=== PATIENT | male | born 1940 | race Caucasian/White ===

== ENCOUNTER → 2017-10-03 10:43 | Outpatient (CLI) | payer MEDICARE, OTHER, SELFPAY ==
--- NOTE | 2017-10-03 10:45 | CT_ITS ---
STUDY: CT BRAIN WITHOUT CONTRAST REASON FOR EXAM: Male, 77 years old. Dementia. RADIATION DOSAGE (If Supplied By Facility): CTDIvol = ( 44.99 ) mGy, DLP = ( 779.24 ) mGycm TECHNIQUE: Transaxial CT imaging of the brain was performed without administration of intravenous contrast material. Individualized dose optimization techniques were used for this CT. COMPARISON: Comparison is made with prior study dated July 08, 2017. FINDINGS: Normal soft tissue structures. Normal calvarium. There is mild cerebral atrophy with widening of the extra-axial spaces and ventricular dilatation. There are areas of decreased attenuation within the white matter tracts of the supratentorial brain, consistent with microvascular disease changes. Stable old lacunar infarct in the right thalamus. Normal brainstem. There is mild cerebellar atrophy. There is no intracranial hemorrhage. There are no findings of an acute ischemic infarction. Atherosclerotic calcification of the vertebral arteries and cavernous portions of the internal carotid arteries bilaterally. Deformity of the left maxillary sinus with opacification. CT/Brain/Head without Contrast IMPRESSION: Chronic involutional changes of the brain. Electronically Signed: Valentino Pitts MD at 13:57 EST Tel [phone], Service support ,
== END ==
PROVIDERS: Family Provider Family Medicine; PCP Family Medicine; Visit Provider Nurse Practitioner Acute Care
DX: F03.90 Unspecified dementia, unspecified severity, without behavioral disturbance, psychotic disturbance, mood disturbance, and anxiety (principal)
CPT/HCPCS: 70450

== ENCOUNTER → 2018-09-09 16:11 | Outpatient (CLI) | payer MEDICARE, OTHER, SELFPAY ==
[2017-08-25 09:27] VITALS: BMI 28.2
[2018-09-09 18:06] LABS: Absolute Lymphocyte Count 1.22 X10^3/ul (0.83-4.51); Absolute Neutrophil Count 3.4 X10^3/uL (2.0-7.7); Basophil# 0.04 X10^3/uL; Basophil% 0.7 % (0-1); Eosinophil# 0.13 X10^3/uL; Eosinophils% 2.4 % (0-5); Hematocrit 44.3 % (40-54); Hemoglobin 13.6 g/dl (13.0-16.5); Lymphocyte # 1.22 X10^3/ul (4.0); Lymphocyte % 22.7 % (19-41); Mean Corp Hgb Conc 30.7 g/gl (32-36); Mean Corpuscular Hgb 25.6 pg (27.0-32.0); Mean Corpuscular Volume 83.3 fL (80-94); Mean Platelet Vol. 9.1 fl (6.2-12.0); Monocyte# 0.59 X10^3/uL; Neutrophil % 63.2 % (47-70); Platelet Count 219 K/mm3 (150-450); RBC Distribution Width CV 17.4 % (11.6-14.6); RBC Distribution Width SD 52.5 fl (35.1-43.9); Red Blood Count 5.32 M/mm3 (4.6-6.2); White Blood Count 5.4 K/mm3 (4.4-11.0)
[2018-09-09 18:08] LABS: POSITIVE COUNT NO; POSITIVE DIFFERENTIAL NO; POSITIVE MORPHOLOGY NO
[2018-09-09 18:24] LABS: AST(SGOT) 15 U/L (15-37); Alanine Aminotransfer ALT/SGPT 19 U/L (16-61); Albumin, Serum 3.2 g/dL (3.2-5.0); Alkaline Phosphatase 87 U/L (45-117); Anion Gap 10 (5-15); BUN 21 mg/dL (7-18); BUN/Creat Ratio 25.8 RATIO (10-20); Calcium,Total 8.5 mg/dL (8.5-10.1); Chloride 109 mmol/L (98-107); Creatinine, Serum 0.81 mg/dL (0.70-1.30); EST Glomerular Filtration Rate 98 mL/min (>60); Est Glom Filt Rate - Afr Amer 118 mL/min (>60); Globulin 3.3 g/dL (2.2-4.2); Glucose 106 mg/dL (74-106); Potassium 3.7 mmol/L (3.5-5.1); Protein, Total 6.5 g/dL (6.4-8.2); Sodium Level 145 mmol/L (136-145); Thyroid Stim Hormone (TSH) 1.31 uIU/mL (0.358-3.74)
--- OUTSIDE RECORDS SUMMARY | 2018-11-11 18:42 | XMS RPT_ITS ---
:1940 Author Organization OHIP Care Team Providers Name Role Phone Shashank Grajeda Attending Unavailable Shashank Grajeda Primary Care Unavailable Edward Siddiqui D.O. Attending Unavailable Shashank Grajeda Referring Unavailable Tiffanie Rodarte Attending Unavailable Shashank Grajeda Primary Care Unavailable Kandace Olivarez Attending Unavailable Freddy Zamarripa Attending Unavailable PROBLEMS PROBLEMS No Problem Records FoundPROCEDURES PROCEDURES No Procedure Records FoundRESULTS RESULTS CBC W/DIFF, AUTOMATED Collected: 09/09/2018 Status: F Source: [place] 4:13 PM [facility] REPOSITORY TYPE CODE TESTS RESULT OUT OF RANGE REFERENCE UNITS LAB L100.1000 4.4-11.0 K/mm3 Normal WBC 5.4 LAB L100.1200 4.6-6.2 M/mm3 Normal RBC 5.32 LAB L100.1300 13.0-16.5 g/dl Normal HGB 13.6 LAB L100.1400 40-54 % Normal HCT 44.3 LAB L100.1500 80-94 fL Normal MCV 83.3 LAB L100.1600 27.0-32.0 pg Low MCH 25.6 LAB L100.1700 32-36 g/gl Low MCHC 30.7 LAB L100.1810 11.6-14.6 % High RDW CV 17.4 LAB L100.1820 35.1-43.9 fl High RDW SD 52.5 LAB L100.1900 150-450 K/mm3 Normal PLT 219 LAB L100.2000 6.2-12.0 fl Normal MPV 9.1 LAB L100.2100 47-70 % Normal NEUT% 63.2 LAB L100.2200 19-41 % Normal LY% 22.7 LAB L100.2300 0-10 % High MONO% 11.0 LAB L100.2400 0-5 % Normal EO% 2.4 LAB L100.2500 0-1 % Normal BASO% 0.7 LAB L100.2550 0.0-0.9 % Normal IM GRAN % 0.000 Result Comment: IG% - Immature Granulocytes (promyelocytes, myelocytes and metamyelocytes) > 1% indicates that a LEFT SHIFT is Present. LAB L100.2620 2.0-7.7 X10 3/uL Normal Absolute Neut 3.4 LAB L100.2720 0.83-4.51 X10 3/ul Normal Absolute Lymph 1.22 Performed By: #### L100.0100 #### [facility] [address] [place], [place], [address] COMPREHENSIVE METABOLIC Collected: 09/09/2018 Status: F Source: [facility] 4:13 PM [facility] REPOSITORY TYPE CODE TESTS RESULT OUT OF RANGE REFERENCE UNITS LAB L501.0100 74-106 mg/dL Normal GLU 106 Result Comment: Fasting Glucose result from 100 to 125 mg/dL suggests IMPAIRED HOMEOSTASIS per A.D.A. criteria. Please note revised GLUCOSE reference range effective 2017. LAB L501.1000 7-18 mg/dL High BUN 21 LAB L501.1100 0.70-1.30 mg/dL Normal CREAT,SERUM 0.81 Result Comment: The validity of the calculated GFR AND GFRAA in patients over 70 years has not been determined. Clinical correlation is essential. LAB L501.1110 >60 mL/min Normal EST GFR 98 Result Comment: Non- GFR Calc LAB L501.1115 >60 mL/min Normal EST GFR - AA 118 Result Comment: GFR Calc LAB L501.1300 10-20 RATIO High BUN/CRE 25.8 LAB L501.1500 6.4-8.2 g/dL T Normal PROT 6.5 LAB L501.1800 3.2-5.0 g/dL Normal ALB 3.2 LAB L501.1950 2.2-4.2 g/dL Normal GLOB 3.3 LAB L501.2000 0.9-2.4 RATIO Normal A/G 1.0 LAB L501.2200 8.5-10.1 mg/dL CA Normal 8.5 LAB L501.4100 15-37 U/L Normal AST 15 LAB L501.4305 45-117 U/L Normal ALK P 87 LAB L501.4405 16-61 U/L Normal ALT 19 LAB L501.4600 0.20-1.00 mg/dL T Normal BILI 0.70 LAB L501.5300 136-145 mmol/L NA Normal 145 LAB L501.5600 3.5-5.1 mmol/L K Normal 3.7 LAB L501.5900 98-107 mmol/L High CL 109 LAB L501.6100 21.0-32.0 mmol/L Normal CO2 26.0 LAB L501.6200 5-15 Normal GAP 10 Performed By: #### L500.4050, L501.9520 #### [facility] [address] [place], [address] THYROID STIM HORMONE Collected: 09/09/2018 Status: F Source: [place] (TSH) 4:13 PM [facility] REPOSITORY TYPE CODE TESTS RESULT OUT OF RANGE REFERENCE UNITS LAB L501.9520 0.358-3.74 uIU/mL Normal TSH 1.31 Performed By: #### L500.4050, L501.9520 #### [facility] [address] [place], [address] BRAIN/HEAD WITHOUT Observed: 10/03/2017 Status: F Source: [place] CONTRAST 10:45 AM [facility] REPOSITORY [facility] Imaging Services [address] [place] [address] [place] [address] Brain/Head without Contrast MR#: [id number] Acct: [id number] Name: LORI TEJEDA Rep #: [id number] : 1940 M 77 From: Valentino Pitts MD PCP: Shashank Grajeda MD Status: REG CLI Study: Brain/Head without Contrast Date of Exam: 10/03/17 Exam# [id number] Ordering Dr: Tiffanie Rodarte STUDY: CT BRAIN WITHOUT CONTRAST REASON FOR EXAM: Male, 77 years old. Dementia. RADIATION DOSAGE (If Supplied By Facility): CTDIvol = ( 44.99 ) mGy, DLP = ( 779.24 ) mGycm TECHNIQUE: Transaxial CT imaging of the brain was performed without administration of intravenous contrast material. Individualized dose optimization techniques were used for this CT. COMPARISON: Comparison is made with prior study dated July 08, 2017. FINDINGS: Normal soft tissue structures. Normal calvarium. There is mild cerebral atrophy with widening of the extra- axial spaces and ventricular dilatation. There are areas of decreased attenuation within the white matter tracts of the supratentorial brain, consistent with microvascular disease changes. Stable old lacunar infarct in the right thalamus. Normal brainstem. There is mild cerebellar atrophy. There is no intracranial hemorrhage. There are no findings of an acute ischemic infarction. Atherosclerotic calcification of the vertebral arteries and cavernous portions of the internal carotid arteries bilaterally. Deformity of the left maxillary sinus with opacification. CT/Brain/Head without Contrast IMPRESSION: Chronic involutional changes of the brain. Electronically Signed: Valentino Pitts MD at 13:57 EST Tel [phone], Service support , CC: RITA Rodarte; Shashank Grajeda MD Black Off Worker: Signed PULMONARY VISIT REPORT Observed: 09/29/2017 Status: F Source: [place] 8:11 AM [facility] REPOSITORY [facility] [address] [place] [address] OFFICE VISIT Date of Service: 09/26/17 MR#: [id number] Acct: [id number] Name: LORI TEJEDA Rep #: [id number] : 1940 Provider: Edward Siddiqui D.O. Age/Sex: 77/M [place] [facility] Status: Signed Assessment AND Plan 1. History of abnormal breathing pattern Z87.898 Plan The patient's cyclical abnormal breathing pattern is most likely neurologic/psychiatric in etiology. He is currently maintaining appropriate oxygen saturations on room air and does not desaturate with the onset of these episodes. He would be unable to perform PFT's and I do not see a clinical indication to obtain any form of dedicated chest imaging. The patient is currently scheduled to follow up with Dr. Becker of Neurology. I have asked that the patient's discuss this issue with him at their follow up visit with Neurology. 2. Shortness of breath R06.02 Plan As above, likely neurologic in etiology. 3. Other cardiomyopathy I42.8 EF 40-45% Plan Continue medical management and follow up per Cardiology. Plan Detail Follow Up 1 Month (CSM) HPI HPI Comments Details: The patient is a 77-year-old male who presents to the clinic today and referral for evaluation of shortness of breath. 8 pages of medical records were personally reviewed at today's office visit. The patient's is in attendance at today's office visit. The patient currently follows with the [facility] for a history of atrial fibrillation and cardiomyopathy. The patient's last surface echocardiogram revealed evidence of moderate global hypokinesis of the LV with an ejection fraction of 40%. Right ventricular systolic pressure was estimated to be 33 mmHg. The patient does have a history of dementia and is relatively nonverbal and a poor historian. Therefore, the vast majority of my questions were answered by the patient's . She reports that the patient had a brain bleed one year ago. MRI head completed in June 2017 revealed the followin. No acute or evolving ischemic process. 2. Generalized cerebral atrophy of the frontal, parietal and temporal lobes with moderate chronic white matter ischemic changes of the supratentorial brain. 3. Prominent perivascular spaces of the bilateral basal nuclei. 4. 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 5. Remote hemorrhagic lacunar infarction of the right thalamus. 6. Empty sellar syndrome. 7. Status post bilateral ocular lens implants. 8. 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 The patient's reports that in the months after the aforementioned neurological injury, the patient developed cyclical periods of shortness of breath that lasted for 20-25 seconds at a time. The patient is a lifelong non-smoker. During these episodes of dyspnea, the patient often exhibits pursed lipped breathing. He is currently scheduled to be seen by Dr. Becker of neurology next week. The patient's does confirm that these periods of dyspnea occur both night and day. The patient has not had any recent fevers, chills or night sweats. His weight has been relatively stable. Intake Vital Signs09/26/17 Height 5 ft 9 in 09/26/17 Blood Pressure 112/72 09/26/17 Blood Pressure Location Rt brachial 09/26/17 Blood Pressure Position Sitting 09/26/17 Respiratory Rate 18 Intake Visit Reasons: Apnea Grab Setter Required: No Is patient in pain?: No Allergies donepezil [From Aricept] Adverse Reaction (Verified 09/26/17 10:17) Other levetiracetam [From Keppra] Adverse Reaction (Verified 09/26/17 10:17) Other Medications Atorvastatin Calcium [Lipitor] 40 mg PO QHS #30 tab 07/23/17 [Rx Confirmed 09/26/17] Finasteride [Proscar] 5 mg PO QHS #30 tab 07/23/17 [Rx Confirmed 09/26/17] Lisinopril [Zestril] 20 mg PO DAILY #30 tab 07/23/17 [Rx Confirmed 09/26/17] aspirin 81 mg tablet,delayed release 81 mg PO QDAY #30 tab 08/25/17 [Rx Confirmed 09/26/17] metoprolol succinate ER 100 mg tablet,extended release 24 hr 100 mg PO BID tab 09/25/17 [History Confirmed 09/26/17] [facility] Medical History Transient ischemic attack (Acute) Cardiomyopathy (Chronic) Gross hematuria (Acute) UTI (urinary tract infection) (Acute) 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) BPH (benign prostatic hypertrophy) (Chronic) Edema (Chronic) Hyperlipidemia (Chronic) Aphasia (Acute) Debility (Chronic) A-fib (Chronic) Hypertension (Chronic) Family History Father Myocardial infarction Social History Smoking Status: Former smoker Review of Systems Const CONSTITUTIONAL: Positive daytime sleepiness, sleeping in chair and fatigue; negative anorexia, body ache, chills, fever(s), night sweats, oral thrush, stops breathing during sleep, weight loss, weight loss, weight gain, frequent colds, seasonal allergies, other, headache(s) or orthopnea EETM Ear Nose Throat Mouth: Positive hoarseness, dry mouth in morning and hearing normal; negative hard of hearing, change in vision, itchy eyes, eye pain, swallowing Difficulty, ear pain, nose bleed, headache(s), mouth pain, nasal congestion, nasal discharge, post nasal drip, sinus pain, sinus pressure, sore throat or other Cardio Cardiovascular: Positive irregular heart rhythm and palpitations; negative chest pain, chest pain at rest, chest pain with activity, edema, shortness of breath when lying down, murmur or other Resp Respiratory: Positive as per HPI and shortness of breath; negative pain with cough, wheezing, chest congestion, cough, chest tightness, pain on inspiration, inhalers, increase use of rescue inhalers, snoring, apnea or other Gastro Gastrointestional: Negative bloody stools, change in appetite, difficulty swallowing, reflux, hematemesis, melena stool, loose stool, constipation or other Genitourinary: Positive nocturia; negative blood in urine, pain with urination or other Musc Musculoskeletal: Negative body pain, back pain, neck pain or other Skin/Breast Skin/Breast: Positive dry skin; negative itching, rash, unusual bruising, breast lump or other Neuro Neurological: Positive confusion; negative restless legs, weakness or other Psych Psychocological: Positive abnormal sleep pattern; negative anxiety, thoughts of hurting self/others, hopelessness or other Lymph Lymphatic: Positive easy bleeding; negative easy bruising, swollen lymph nodes or other Exam Const Constitutional: Positive in no acute respiratory distress, well developed, well nourished, frail appearing and obese The patient is hunched over, seated in a wheelchair with limited eye contact and interaction. During my encounter, the patient did experience cyclical episodes of a Bernard-Tony like breathing quality. Head Head: Positive normocephalic and atraumatic; negative cyanosis of lips/distal nose Eyes Eye: Positive clear conjunctiva; negative nystagmus or scleral abnormality Ears Ear: Positive hearing normal and external ears normal; negative hard of hearing Nose Nose: Positive external nose normal; negative epistaxis Mouth Mouth: Positive posterior oropharynx is adequate; negative no lesions or post nasal drip Mallampati Score: II: Mallampati Score Neck Neck: Positive normal visual inspection and trachea midline; negative lymphadenopathy Chest Wall Chest: Positive symmetric chest movement Resp lung sounds: Positive diminished; negative wheezes, rhonchi or rales Poor, patient dependent inspiratory effort. Cardio Cardiac: Positive regular rate, regular rhythm, S1 normal and S2 normal; negative rub, gallop or murmur GI GI: Positive normal bowel sounds and obese Soft without distention Genitourinary: Positive deferred Musc Musculoskeletal: Positive in a wheelchair and kyphosis Skin Pulmonary Skin Exam: Positive intact; negative lesion, ulcers, dermal atrophy or rash Pulses Pulse: Yes Pedal pulses present: Extremities Extremities: No clubbing, No cyanosis, Yes edema Neuro Baseline neurological status per Lymph Lymphatic: No lymphadenopathy Psych Appearance: Negative eye contact Mood: Positive labile mood Affect: Positive flat Coding Level of Care Code Off vis,new,level 4 Diagnoses History of abnormal breathing pattern Z87.898 Shortness of breath R06.02 Other cardiomyopathy I42.8 Cardiomyopathy type: other 09/29/17 0811 <Electronically signed by Edward Siddiqui DO> Date Edward Siddiqui DO Cosigner Signature: Date (if applicable) CC: Shashank Grajeda MD ALLERGIES ALLERGIES DATE TYPE / CODE NAME / CODE REACTION SEVERITY SOURCE 09/26/2017 Drug donepezil/F0 Other Unknown [facility] Allergy/4160 [id number]([facility] 29848(SNOMED ORM) Repository CT) 09/26/2017 Drug levetiraceta Other Unknown [facility] Allergy/4160 m/[id number] [facility] 09641(SNOMED (RXNORM) Repository CT) ENCOUNTERS ENCOUNTERS ADMIT/DISCHARGE ACCOUNT ADMITTING ENCOUNTER LOCATION SOURCE NUMBER CLASS 09/09/2018 [id number] Ambulatory [facility] ing:MFPLAB Repository 12/03/2017 [id number] Ambulatory [facility] [place] [facility] Repository 11/24/2017 [id number] Ambulatory [facility] [place] [facility] Repository 10/03/2017 [id number] Ambulatory [facility] [place] [facility] ing:CT Repository 09/26/2017/ [id number] Ambulatory BMSBuilding:[facility] [place] [facility] 8 [facility] Repository PAYERS PAYERS ENCOUNTER GUARANTOR PAYER SUBSCRIBER SOURCE 09/09/2018 LORI C Primary LORI C [place] [id number] Insurance:MEDICARE MARMETDOB: [facility] PART A [id number] [place] Number[facility] Repository [address]Ghw: 330 [id number] [phone] (HP) Date:2018-09-09 09/09/2018 Secondary LORI C [place] Insurance:AARPPolicy CITLALLIETB: [facility] Number: [id number] Hospital [id number] Repository Date:[id number], [place] [address]PR: 09/09/2018 Tertiary NOT GIVENUNK [place] Insurance:SELF PAY [facility] Number: Effective Repository Date:2018-09-09 12/03/2017 LORI C Primary LORI C [place] [id number] Insurance:MEDICARE MARMETDOB: [facility] PART [facility] [id number]: Rep[place] [address]Okj: 330 [id number] [phone] (HP) Date:2017-08-25 12/03/2017 Secondary LORI C [place] Insurance:AARPPolicy MARMETDOB: [facility] Number: [id number] Hospital [id number] Repository Date:[id number], [place] [address]SF: 12/03/2017 Tertiary NOT GIVENUNK [place] Insurance:SELF PAY [facility] Number: Effective Repository Date:2017-08-25 11/24/2017 LORI C Primary L[facility]I C [facility] [id number] Insurance:MEDICARE MARMETDOB: Community [facility] PART A [id number] [place] Number[facility] Repository [address]Urc: 330 [id number] [phone] (HP) Date:2017-11-24 11/24/2017 Secondary LORI C [facility] Insurance:AARPPolicy MARMETDOB: Community Number: [id number] Hospital [id number] Repository Date:9522-23-42[address], [place] [address]MT: 11/24/2017 Tertiary NOT GIVENUNK [place] Insurance:SELF PAY [facility] Number: Effective Repository Date:2017-11-24 10/03/2017 LORI C Primary LORI C [place] [id number] Insurance:MEDICARE MARMETDOB: Community [facility] PART A [facility] [id number] [place] Number: Repository [id number]: 330 [id number] [phone] () Date:2017-09-30 10/03/2017 Secondary LORI C [facility] Insurance:AARPPolicy MARMETDOB: Community Number: [id number] Hospital [id number] Repository Date:7073-12-43[address], [place] [address]BY: 10/03/2017 Tertiary NOT GIVENUNK [place] Insurance:SELF PAY [facility] Number: Effective Repository Date:2017-09-30 09/26/2017 LORI C Primary LORI C [place] [id number] Insurance:MEDICARE MARMETDOB: Community [facility] PART A [facility] [id number] Number: Repository [id number]: [phone] [id number] [phone] () Date:2017-08-25 09/26/2017 Secondary LORI C [facility] Insurance:AARPPolicy JOVANNYB: [facility] Number: [id number] Hospital [id number] Repository Date:[id number], [place] [address]NC: 09/26/2017 Tertiary NOT GIVENUNK [place] Insurance:SELF PAY [facility]: Effective Repository Date:2017-08-25
== END ==
PROVIDERS: Family Provider Family Medicine; PCP Family Medicine; Visit Provider Family Medicine
DX: F32.9 Major depressive disorder, single episode, unspecified (principal); Z86.73 Personal history of transient ischemic attack (TIA), and cerebral infarction without residual deficits
CPT/HCPCS: 36415; 80053; 84443; 85025

== ENCOUNTER 2019-03-03 12:46 | Inpatient (IN) | payer MEDICARE, OTHER, SELFPAY ==
[2019-03-03] VITALS (8 sets, daily range): BP systolic 116–163; BP diastolic 74–108; PULSE 51–89; RESP 16–20; TEMP 37–38.4; O2SAT 96–98; BMI 29.5; BMI 29.6
--- NOTE | 2019-03-03 13:20 | RAD_ITS ---
STUDY: X-RAY CHEST REASON FOR EXAM: Male, 78 years old. Fever, fatigue, weakness TECHNIQUE: Single AP portable view of the chest. COMPARISON: None. FINDINGS: The lungs are clear and expanded. There is no demonstrated pleural abnormality. There is moderate cardiac enlargement. Normal mediastinum and vikas. Normal visualized pulmonary arteries. There is atherosclerotic tortuosity of the aortic arch and descending thoracic aorta. Normal visualized thoracic spine. Normal visualized ribs, clavicles, and shoulders. There is no demonstrated abnormality of the visualized soft tissue structures of the upper abdomen. RAD/Chest 1 View (Portable) IMPRESSION: No active disease. Electronically Signed: Dangelo Saunders MD at 13:40 EDT Tel , Service support ,
--- NOTE | 2019-03-03 13:23 | ED.DCSUM_ITS ---
- ER Visit Summary Date of Service: 03/03/19 Chief Complaint: Low-grade fever and generalized weakness History of Present Illness: The patient is a 78 M history of an arrhythmia prior stroke and hypertension. When he states his been tired and listless since last Friday. He has a low-grade fever around 100-101 intermittently over the last week. No nausea, vomiting or diarrhea. No cough. No shortness of breath. No abdominal pain. No dysuria. No hematuria. No rashes. Physical Examination: General no acute distress vital signs stable afebrile currently his temperature is 98.7. He does not look septic or toxic. He does not look dehydrated. H EENT exam unremarkable. Moist his membranes. No facial droop. No trauma. Neck nontender no lymphadenopathy. Lungs clear to auscultation bilaterally. Heart regular rhythm no murmur. Abdomen soft nontender. Normal bowel sounds no peritoneal signs. Patient is moving all 4 extremities. His left buttock cheek there is a small break in the skin but no signs of cellulitis or abscess. Back nontender. Neuro extremities. Is answering questions. Following commands. is present in room he has most of the history. Test Results: CBC normal white count 7. Hemoglobin 13. Chemistries normal. G ap of 2. Creatinine 0.9. Chest x-ray is normal. Chest x-ray read both by myself and the radiologist. Lactate is 2.0. Emergency Department Course and Treatment: Early gentleman generally weak with intermittent low-grade fever all week. Treated with IV fluids and labs and blood cultures working patient up for a fever of uncertain etiology Treatment Plan: Repeat exam he is doing well at 16 10 PM. No change. Discussed all test results with patient and his . He had a prior stroke and uses a walker at home she said he is really having trouble now that he is so weak. She denied discussed fever of uncertain etiology and I will get him admitted to the hospitalist so far he spoken to. Disposition: Admission Impression: Generalized weakness Fever fever of uncertain etiology This note was generated with [employer] dictation software. It may contain incorrect words, spelling, and punctuation that were not noted in review of the chart prior to signing ED Disposition - Plan for ED Patient: Referrals: Parmjit Grajeda MD [Primary Care Provider] -
[2019-03-03 13:25] LABS: Bacteria 0 SEEN /hpf (None Seen); Mucous, Urine 0 SEEN /hpf (<or=2+); Red Blood Cells-Urine 0 SEEN /hpf (0-5); Squamous Epithelial Cells - UA 0 SEEN /hpf (0-5); White Blood Cells 0 SEEN /hpf (0-5)
[2019-03-03 13:27] LABS: Color, Urine Yellow (Yellow); Glucose, Dipstick Normal (Normal); Ketone-Dipstick Negative (Negative); Leukocyte Esterase-Dipstick Negative /ul (Negative); Nitrite-Dipstick Negative (Negative); Occult Blood-Urine 10 /ul (Negative); Protein-Dipstick Negative (Negative); Urine Bilirubin Dipstick Negative (Negative); Urine Clarity Clear (Clear); Urine Urobilinogen Normal (Normal); Urine pH 6.5 (5.0 - 8.0)
[2019-03-03 13:55] LABS: Absolute Lymphocyte Count 1.31 X10^3/uL (0.83-4.51); Absolute Neutrophil Count 5.2 X10^3/uL (2.0-7.7); Basophil# 0.02 X10^3/uL; Basophil% 0.3 % (0-1); Eosinophil# 0.08 X10^3/uL; Eosinophils% 1.1 % (0-5); Hematocrit 45.5 % (40-54); Hemoglobin 15.3 g/dL (13.0-16.5); Lymphocyte # 1.31 X10^3/ul (4.0); Lymphocyte % 17.8 % (19-41); Mean Corp Hgb Conc 33.6 g/dL (32-36); Mean Corpuscular Hgb 29.3 pg (27.0-32.0); Mean Corpuscular Volume 87.2 fL (80-94); Mean Platelet Vol. 8.4 fl (6.2-12.0); Monocyte# 0.69 X10^3/uL; Monocyte% 9.4 % (0-10); NRBC Flagged by Analyzer 0 % (0-5); Neutrophil # 5.22 X10^3/uL (2.7-7.7); Platelet Count 238 K/mm3 (150-450); RBC Distribution Width CV 13.8 % (11.6-14.6); RBC Distribution Width SD 44.4 fl (35.1-43.9); Red Blood Count 5.22 M/mm3 (4.6-6.2); White Blood Count 7.4 K/mm3 (4.4-11.0)
[2019-03-03 14:05] LABS: Anion Gap 4 (5-15); BUN 18 mg/dL (7-18); Calcium,Total 8.8 mg/dL (8.5-10.1); Chloride 100 mmol/L (98-107); Creatinine, Serum 0.95 mg/dL (0.70-1.30); EST Glomerular Filtration Rate 82 mL/min (>60); Est Glom Filt Rate - Afr Amer 99 mL/min (>60); Estimated Creatinine Clearance 65.12 ml/min; Glucose 108 mg/dL (74-106); Potassium 3.4 mmol/L (3.5-5.1); Sodium Level 133 mmol/L (136-145)
--- NOTE | 2019-03-03 16:28 | NURSING ---
305 KORAM FEVER, GENERALIZED WEAKNESS
--- NOTE | 2019-03-03 17:01 | HP.PCM_ITS ---
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 He was admitted through the ED on 03/03/2019 with a complaint of fever for a few days. Patient states temperature peaked around 101.2 Fahrenheit as well as at home. He was episodic. He had no chills, no cough, no chest pain, no palpitations, no dizziness, no abdominal pain, no shortness of breath, no burning or frequency of urination. He denied having any rash or any viral upper respiratory symptoms. They could not figure out what was going on with h im and what was causing the fever so they decided to come into the ED. On admission in the ED patient was initially 101.2 but came down with Tylenol to 99.1F. Vitals were otherwise stable. CBC showed no leukocytosis with white cell count of 7.4. BMP was significant for sodium of 133 and potassium of 3.4. Lactic acid was 2. Chest x-ray showed no acute cardiopulmonary process. Urinalysis was also negative for white cell count or bacteria. He has been admitted to be managed for fever of unknown origin. 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) BPH (benign prostatic hypertrophy) (Chronic) Edema (Chronic) Hyperlipidemia (Chronic) Debility (Chronic) A-fib (Chronic) Hypertension (Chronic) Medical History: Medical History (Last Reviewed 09/26/17 @ 10:17 by Zena Jimenez) Transient ischemic attack (Acute) Cardiomyopathy (Chronic) I42.9 EF 40-45% Gross hematuria (Acute) UTI (urinary tract infection) (Acute) N39.0 Choreiform movement (Chronic) R25.8 Thalamic hemorrhage with stroke (Chronic) I61.9 BPH (benign prostatic hypertrophy) (Chronic) N40.0 Edema (Chronic) R60.9 Hyperlipidemia (Chronic) E78.5 Aphasia (Acute) R47.01 Debility (Chronic) R53.81 A-fib (Chronic) I48.91 Hypertension (Chronic) I10 Allergies donepezil [From Aricept] Adverse Reaction (Verified 03/03/19 12:47) Other increase stiffness could not move per levetiracetam [From Keppra] Adverse Reaction (Verified 03/03/19 12:47) Other Home Medications: Ambulatory Orders Medication Instructions Recorded Atorvastatin Calcium [Lipitor] 40 mg PO QHS #30 tab 07/23/17 Lisinopril [Zestril] 20 mg PO DAILY #30 tab 07/23/17 metoprolol succinate ER 100 mg 100 mg PO BID tab 09/25/17 tablet,extended release 24 hr Aspirin [Aspir-Low] 81 mg PO DAILY 03/03/19 Furosemide [Lasix] 40 mg PO DAILY 03/03/19 Potassium Chloride 10 meq PO DAILY 03/03/19 Tamsulosin HCl [Flomax] 0.4 mg PO DAILY 03/03/19 Surgical History: no surgical history Psychiatric History: No pertinent psych hx Lives: Spouse/ Significant Other Smoking Status: Never smoker Tobacco Use: Non-smoker - *Family History Maternal Family History: Family History (Last Reviewed 09/26/17 @ 10:17 by Zena Jimenez) Father Myocardial infarction History Items: No pertinent history Paternal Family History: Family History (Last Reviewed 09/26/17 @ 10:17 by Zena Jimenez) Father Myocardial infarction History Items: No pertinent history Review of Systems Constitutional: Reports: Fever. Denies: Anorexia, Chills, Night Sweats, Malaise, Weakness, Fatigue Eyes: Denies: Blurred vision HEENT: Reports: Difficulty Hearing Cardiovascular: Denies: Chest Pain, Palpitations Respiratory: Denies: Cough, Shortness of Breath, Shortness of breath at rest, Sputum production Gastrointestinal: Denies: Abdominal Pain, Nausea, Vomiting Genitourinary: Denies: Dysuria, Frequency Musculoskeletal: Denies: Joint Pain, Joint Tenderness Skin: Denies: Rash, Wounds Neurological: Denies: Numbness, Tingling, Focal weakness Psychiatric: Denies: Anxiety, Depression, Homicidal Ideations, Suicidal Ideations Hematologic/ Lymphatic: Denies: Easy Bruising, Easy Bleeding VTE Information - Inpt Only VTE Present on Admission: No VTE Pharm Prophylaxis ordered?: Yes - Physical Exam General: Alert, Oriented x3, Cooperative, No apparent distress HEENT: Atraumatic, PERRLA, EOMI, Normocephalic Oral: Dry Mucosa Neck: Supple Lungs: Clear to auscultation, Normal air movement, No rhonchi, No wheeze, No rales Cardiovascular: Regular rate, Regular Rhythm, Normal S1, Normal S2, No murmurs Abdomen: Bowel Sounds Present, Soft, Non Tender, Non-Distended, No Hepato- splenomegaly Extremities: No clubbing, No cyanosis, No edema, Capillary Refill Less than 3 Seconds Skin: No rashes, No breakdown, - - small ~ 0.5cm abrasion on left buttock, doesnt look infected Musculoskeletal: No Tenderness to Palpation of Joints or Extremities Lymphatic: No Cervical, Supraclavicular, or Inguinal Adenopathy Neurological: Cranial nerves II-XII grossly intact, - - left hemiparesis from previous strokes Psych/Mental Status: Normal Affect, Appropriate, Alert and oriented to time, place, person, mood and affect Vital Signs Temp Pulse Resp BP Pulse Ox 99.1 F 87 18 135/93 H 98 03/03/19 16:11 03/03/19 16:40 03/03/19 16:40 03/03/19 16:40 03/03/19 16:40 Oxygen Delivery Method Room Air Weight: 200 lb Body Mass Index (BMI) 29.5 Finger Stick Blood Glucose 140 Laboratory Tests Past 24 Hrs 03/03/19 03/03/19 03/03/19 13:13 13:35 13:35 WBC 7.4 RBC 5.22 Hgb 15.3 Hct 45.5 MCV 87.2 MCH 29.3 MCHC 33.6 RDW Std Deviation 44.4 H RDW Coeff of Tal 13.8 Plt Count 238 MPV 8.4 Immature Gran % (Auto) 0.400 Neut % (Auto) 71.0 H Lymph % (Auto) 17.8 L [place] % (Auto) 9.4 Eos % (Auto) 1.1 Baso % (Auto) 0.3 Absolute Neuts (auto) 5.2 Absolute Lymphs (auto) 1.31 Absolute Nucleated RBC 0.00 Nucleated RBC % 0 Sodium 133 L Potassium 3.4 L Chloride 100 Carbon Dioxide 29.0 Anion Gap 4 L BUN 18 Creatinine 0.95 Estim Creat Clear Calc 65.12 Est GFR (MDRD) Af Amer 99 Est GFR (MDRD) Non-Af 82 BUN/Creatinine Ratio 19.0 Glucose 108 H Lactic Acid Calcium 8.8 Urine Color Yellow Urine Clarity Clear Urine pH 6.5 Ur Specific [place] 1.010 Urine Protein Negative Urine Glucose (UA) Normal Urine Ketones Negative Urine Occult Blood 10 H Urine Nitrite Negative Urine Bilirubin Negative Urine Urobilinogen Normal Ur Leukocyte Esterase Negative Urine RBC 0 SEEN Urine WBC 0 SEEN Ur Squamous Epith Cells 0 SEEN Urine Bacteria 0 SEEN Urine Mucus 0 SEEN 03/03/19 13:35 WBC RBC Hgb Hct MCV MCH MCHC RDW Std Deviation RDW Coeff of Tal Plt Count MPV Immature Gran % (Auto) Neut % (Auto) Lymph % (Auto) [place] % (Auto) Eos % (Auto) Baso % (Auto) Absolute Neuts (auto) Absolute Lymphs (auto) Absolute Nucleated RBC Nucleated RBC % Sodium Potassium Chloride Carbon Dioxide Anion Gap BUN Creatinine Estim Creat Clear Calc Est GFR (MDRD) Af Amer Est GFR (MDRD) Non-Af BUN/Creatinine Ratio Glucose Lactic Acid 2.0 Calcium Urine Color Urine Clarity Urine pH Ur Specific [place] Urine Protein Urine Glucose (UA) Urine Ketones Urine Occult Blood Urine Nitrite Urine Bilirubin Urine Urobilinogen Ur Leukocyte Esterase Urine RBC Urine WBC Ur Squamous Epith Cells Urine Bacteria Urine Mucus Diagnostic Data Chest X-Ray 03/03/19 13:20 IMPRESSION: No active disease. Electronically Signed: Dangelo Saunders MD at 13:40 EDT Tel , Service support , Assessment/Plan All Active Problems (Last Reviewed 09/26/17 @ 10:17 by Zena Jimenez) Shortness of breath (Acute) Transient ischemic attack (Acute) Gross hematuria (Acute) UTI (urinary tract infection) (Acute) Aphasia (Acute) 78 y/o admitted for fever of unknown origin 1. Fever of unknown origin * temperature fluctuates, and peaked at 101.2F whilst on admission * admit to Med surg with telemetry * check blood cultures * after admission to floor, patient still had low grade fever of 99.2F, * consider getting ID consult tomorrow if fever persists * will give one dose of IV vancomycin nad IV zosyn * lactic acid was 2.2. Will hydrate with NS and repeat. * 2. Afib: rate controlled. on metoprolol>.no oral anticoagulation, p resumably o/a of previous history of hemorrhagic stroke. 3. History of hemorrhagic stroke and TIA: on aspirin. Also on statin. 4. Debility due to stroke: 5. Hypertension: On lisinopril and metoprolol. 6. Hyperlipidemia: Statin. 7. BPH: Flomax. DVT prophylaxis: SCDs Code Visit Inpatient E&M: 98303 Init Hosp L3
[2019-03-03] MEDS: Tamsulosin HCl 0.4 MG Capsule PO (17:31)
[2019-03-03 17:49] LABS: Reflex Lactate? Y
[2019-03-03 20:00] LABS: Lactic Acid 2.2 mmol/L (0.4-2.0)
[2019-03-03] MEDS: 0.9% Normal Saline 1,000 ML 125 ML IV (20:31)
[2019-03-03] MEDS: Atorvastatin Calcium 40 MG Tablet PO (20:39)
[2019-03-03] MEDS: Metoprolol(XL)Succ 100 MG Tablet PO (20:40)
--- NOTE | 2019-03-03 22:39 | PCM.RX.CS ---
Consult Pharmacy has been consulted to manage selected antiobiotic: Vancomycin Type of Consult: New start Suspected Infection: Other Labs: Sodium 133 mmol/L (136-145) L 03/03/19 13:35 Potassium 3.4 mmol/L (3.5-5.1) L 03/03/19 13:35 Chloride 100 mmol/L (98-107) 03/03/19 13:35 Carbon Dioxide 29.0 mmol/L (21.0-32.0) 03/03/19 13:35 4 (5-15) L 03/03/19 13:35 BUN 18 mg/dL (7-18) 03/03/19 13:35 0.95 mg/dL (0.70-1.30) 03/03/19 13:35 Est GFR (MDRD) Af Amer 99 mL/min (>60) 03/03/19 13:35 Est GFR (MDRD) Non-Af 82 mL/min (>60) 03/03/19 13:35 19.0 RATIO (10-20) 03/03/19 13:35 Glucose 108 mg/dL (74-106) H 03/03/19 13:35 Weight used for dosin kg Estimated Creatinine Clearance: 65 mL/min Goal Trough: 15-20 mcg/mL Pharmacy Plan for Drug Dosing: Initial dose 1250mg IV x1. Continue 1000mg IV q12h with trough prior to 4th dose per policy. Pharmacy Service will continue to monitor and adjust dosing as required. Follow-Up Labs: Trough Vancomycin - 03/05 @ 0930
[2019-03-04] VITALS (7 sets, daily range): BP systolic 127–154; BP diastolic 90–95; PULSE 66–96; RESP 16–18; TEMP 36.6–37.9; O2SAT 93–99
[2019-03-04] MEDS: Acetaminophen 325 MG Tablet 650 MG PO (02:36)
[2019-03-04 03:23] LABS: Reflex Lactate? Y
[2019-03-04 04:18] LABS: Anion Gap 9 (5-15); BUN 21 mg/dL (7-18); BUN/Creat Ratio 20.8 RATIO (10-20); Calcium,Total 8.1 mg/dL (8.5-10.1); Chloride 105 mmol/L (98-107); Creatinine, Serum 1.01 mg/dL (0.70-1.30); EST Glomerular Filtration Rate 76 mL/min (>60); Est Glom Filt Rate - Afr Amer 92 mL/min (>60); Estimated Creatinine Clearance 61.25 ml/min; Glucose 118 mg/dL (74-106); Potassium 3.6 mmol/L (3.5-5.1); Sodium Level 139 mmol/L (136-145)
[2019-03-04 04:43] LABS: Lactic Acid 2.6 mmol/L (0.4-2.0)
[2019-03-04 04:58] LABS: Absolute Neutrophil Count 5.5 X10^3/uL (2.0-7.7); Basophil# 0.04 X10^3/uL; Basophil% 0.5 % (0-1); Eosinophil# 0.05 X10^3/uL; Eosinophils% 0.7 % (0-5); Hematocrit 42.4 % (40-54); Hemoglobin 14.3 g/dL (13.0-16.5); Lymphocyte % 18.2 % (19-41); Mean Corp Hgb Conc 33.7 g/dL (32-36); Mean Corpuscular Hgb 29.5 pg (27.0-32.0); Mean Corpuscular Volume 87.6 fL (80-94); Mean Platelet Vol. 8.4 fl (6.2-12.0); Monocyte# 0.65 X10^3/uL; Monocyte% 8.5 % (0-10); NRBC Flagged by Analyzer 0 % (0-5); Neutrophil % 71.6 % (47-70); Platelet Count 225 K/mm3 (150-450); RBC Distribution Width CV 13.7 % (11.6-14.6); RBC Distribution Width SD 44.1 fl (35.1-43.9); Red Blood Count 4.84 M/mm3 (4.6-6.2); White Blood Count 7.7 K/mm3 (4.4-11.0)
[2019-03-04] MEDS: 0.9% Normal Saline 1,000 ML 125 ML IV (06:48)
[2019-03-04] MEDS: Aspirin E.C. 81 MG Tablet PO (08:20)
[2019-03-04 08:34] LABS: Lactic Acid 1.9 mmol/L (0.4-2.0)
[2019-03-04] MEDS: Lisinopril 20 MG Tablet PO (08:36)
[2019-03-04] MEDS: Metoprolol(XL)Succ 100 MG Tablet PO ×2 (08:36→21:41)
[2019-03-04] MEDS: Furosemide 40 MG Tablet PO (08:36)
--- NOTE | 2019-03-04 10:33 | PCA ---
brought in power of criminal defense attorney papers. I copied them and placed a copy on chart
--- NOTE | 2019-03-04 10:37 | PCM.HP.ID ---
Problem List (1) Fever Status: Acute Reason for Consult: fever Consulted by: Dr. Oreilly History of Present Illness: The patient is a 78 year old M with h/o rheumatic fever as a child with no damage to his heart who presented with one day of weakness, trouble walking. Denies fever. No focal complaints. Has h/o stroke. No cough, SOB, n/v/d, sick contacts, headache/congestion, dysuria, rash, aches. No recent travel or dental work. Came to ED, temp 101.2, bcx sent, given vanc/zosyn. Feeling about the same. Full ROS performed and neg except as noted above. - Medical History Past Medical History (Chronic Problems): Chronic Problems (Last Reviewed 09/26/17 @ 10:17 by Zena iJmenez) History of abnormal breathing pattern (Chronic) Cardiomyopathy (Chronic) EF 40-45% 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) BPH (benign prostatic hypertrophy) (Chronic) Edema (Chronic) Hyperlipidemia (Chronic) Debility (Chronic) A-fib (Chronic) Hypertension (Chronic) Allergies/Adverse Reactions: Allergies donepezil [From Aricept] Adverse Reaction (Verified 03/03/19 12:47) Other increase stiffness could not move per levetiracetam [From Keppra] Adverse Reaction (Verified 03/03/19 12:47) Other Home Medications: Ambulatory Orders Medication Instructions Recorded Atorvastatin Calcium [Lipitor] 40 mg PO QHS #30 tab 07/23/17 Lisinopril [Zestril] 20 mg PO DAILY #30 tab 07/23/17 metoprolol succinate ER 100 mg 100 mg PO BID tab 09/25/17 tablet,extended release 24 hr Aspirin [Aspir-Low] 81 mg PO DAILY 03/03/19 Furosemide [Lasix] 40 mg PO DAILY 03/03/19 Potassium Chloride 10 meq PO DAILY 03/03/19 Tamsulosin HCl [Flomax] 0.4 mg PO DAILY 03/03/19 Vital Signs Temp Pulse Resp BP Pulse Ox 97.8 F 71 18 154/90 H 93 03/04/19 08:25 03/04/19 08:36 03/04/19 08:25 03/04/19 08:25 03/04/19 08:25 Oxygen Delivery Method Room Air Weight: 90.718 kg Body Mass Index (BMI) 29.5 Finger Stick Blood Glucose 140 Laboratory Tests Past 24 Hrs 03/03/19 03/03/19 03/03/19 13:13 13:35 13:35 WBC 7.4 RBC 5.22 Hgb 15.3 Hct 45.5 MCV 87.2 MCH 29.3 MCHC 33.6 RDW Std Deviation 44.4 H RDW Coeff of Tal 13.8 Plt Count 238 MPV 8.4 Immature Gran % (Auto) 0.400 Neut % (Auto) 71.0 H Lymph % (Auto) 17.8 L [place] % (Auto) 9.4 Eos % (Auto) 1.1 Baso % (Auto) 0.3 Absolute Neuts (auto) 5.2 Absolute Lymphs (auto) 1.31 Absolute Nucleated RBC 0.00 Nucleated RBC % 0 Sodium 133 L Potassium 3.4 L Chloride 100 Carbon Dioxide 29.0 Anion Gap 4 L BUN 18 Creatinine 0.95 Estim Creat Clear Calc 65.12 Est GFR (MDRD) Af Amer 99 Est GFR (MDRD) Non-Af 82 BUN/Creatinine Ratio 19.0 Glucose 108 H Lactic Acid Calcium 8.8 Urine Color Yellow Urine Clarity Clear Urine pH 6.5 Ur Specific [place] 1.010 Urine Protein Negative Urine Glucose (UA) Normal Urine Ketones Negative Urine Occult Blood 10 H Urine Nitrite Negative Urine Bilirubin Negative Urine Urobilinogen Normal Ur Leukocyte Esterase Negative Urine RBC 0 SEEN Urine WBC 0 SEEN Ur Squamous Epith Cells 0 SEEN Urine Bacteria 0 SEEN Urine Mucus 0 SEEN 03/03/19 03/03/19 03/03/19 13:35 18:35 23:20 WBC RBC Hgb Hct MCV MCH MCHC RDW Std Deviation RDW Coeff of Tal Plt Count MPV Immature Gran % (Auto) Neut % (Auto) Lymph % (Auto) [place] % (Auto) Eos % (Auto) Baso % (Auto) Absolute Neuts (auto) Absolute Lymphs (auto) Absolute Nucleated RBC Nucleated RBC % Sodium Potassium Chloride Carbon Dioxide Anion Gap BUN Creatinine Estim Creat Clear Calc Est GFR (MDRD) Af Amer Est GFR (MDRD) Non-Af BUN/Creatinine Ratio Glucose Lactic Acid 2.0 2.2 H 2.0 Calcium Urine Color Urine Clarity Urine pH Ur Specific [place] Urine Protein Urine Glucose (UA) Urine Ketones Urine Occult Blood Urine Nitrite Urine Bilirubin Urine Urobilinogen Ur Leukocyte Esterase Urine RBC Urine WBC Ur Squamous Epith Cells Urine Bacteria Urine Mucus 03/04/19 03/04/19 03/04/19 03:42 03:42 03:42 WBC 7.7 RBC 4.84 Hgb 14.3 Hct 42.4 MCV 87.6 MCH 29.5 MCHC 33.7 RDW Std Deviation 44.1 H RDW Coeff of Tal 13.7 Plt Count 225 MPV 8.4 Immature Gran % (Auto) 0.500 Neut % (Auto) 71.6 H Lymph % (Auto) 18.2 L [place] % (Auto) 8.5 Eos % (Auto) 0.7 Baso % (Auto) 0.5 Absolute Neuts (auto) 5.5 Absolute Lymphs (auto) 1.40 Absolute Nucleated RBC 0.00 Nucleated RBC % 0 Sodium 139 Potassium 3.6 Chloride 105 Carbon Dioxide 25.0 Anion Gap 9 BUN 21 H Creatinine 1.01 Estim Creat Clear Calc 61.25 Est GFR (MDRD) Af Amer 92 Est GFR (MDRD) Non-Af 76 BUN/Creatinine Ratio 20.8 H Glucose 118 H Lactic Acid 2.6 H Calcium 8.1 L Urine Color Urine Clarity Urine pH Ur Specific [place] Urine Protein Urine Glucose (UA) Urine Ketones Urine Occult Blood Urine Nitrite Urine Bilirubin Urine Urobilinogen Ur Leukocyte Esterase Urine RBC Urine WBC Ur Squamous Epith Cells Urine Bacteria Urine Mucus 03/04/19 08:00 WBC RBC Hgb Hct MCV MCH MCHC RDW Std Deviation RDW Coeff of Tal Plt Count MPV Immature Gran % (Auto) Neut % (Auto) Lymph % (Auto) [place] % (Auto) Eos % (Auto) Baso % (Auto) Absolute Neuts (auto) Absolute Lymphs (auto) Absolute Nucleated RBC Nucleated RBC % Sodium Potassium Chloride Carbon Dioxide Anion Gap BUN Creatinine Estim Creat Clear Calc Est GFR (MDRD) Af Amer Est GFR (MDRD) Non-Af BUN/Creatinine Ratio Glucose Lactic Acid 1.9 Calcium Urine Color Urine Clarity Urine pH Ur Specific [place] Urine Protein Urine Glucose (UA) Urine Ketones Urine Occult Blood Urine Nitrite Urine Bilirubin Urine Urobilinogen Ur Leukocyte Esterase Urine RBC Urine WBC Ur Squamous Epith Cells Urine Bacteria Urine Mucus - Other Studies Radiology: [] reviewed Other Studies: [] Route of nutrition/ use of supplements: [] Nutritional Intake: [] IV Site: [] [place] Catheter: [] - Physical Exam General: Alert, Oriented x3, Cooperative, No apparent distress HEENT: Atraumatic, PERRLA, EOMI Neck: Supple, No Nodes Lungs: Clear to auscultation, Normal air movement Cardiovascular: Regular rate, Regular Rhythm, No murmurs Abdomen: Soft, Non Tender, Non-Distended Extremities: Cool, Edema Skin: No rashes IV Site: Peripheral, without redness Musculoskeletal: No Tenderness to Palpation of Joints or Extremities Neurological: Cranial nerves II-XII grossly intact - Assessment/Plan Antibiotics: [] Assessment/Plan: [] Fever with lactic acidosis - normal wbc. No focal symptoms. P/w weakness and trouble walking. Has h/o stroke and rheumatic fever. Bcx pending. Vanc/zosyn have been stopped. I think it is reasonable to continue to monitor off of abx. Would check head CT and consider brain MRI. Will follow, thank you.
--- NOTE | 2019-03-04 10:42 | CT_ITS ---
STUDY: CT BRAIN WITHOUT CONTRAST REASON FOR EXAM: Male, 78 years old. Weakness, rheumatic fever. RADIATION DOSAGE (If Supplied By Facility): CTDIvol = ( 44.99 ) mGy, DLP = ( 779.24 ) mGycm TECHNIQUE: Transaxial CT imaging of the brain was performed without administration of intravenous contrast material. Individualized dose optimization techniques were used for this CT. COMPARISON: FINDINGS: Normal soft tissue structures. Normal calvarium. There is mild cerebral atrophy with widening of the extra-axial spaces and ventricular dilatation. There are areas of decreased attenuation within the white matter tracts of the supratentorial brain, consistent with microvascular disease changes. Chronic lacunar infarct of the right thalamus. Normal brainstem. Normal cerebellum. There is no intracranial hemorrhage. There are no findings of an acute ischemic infarction. Normal visualized paranasal sinuses. CT/Brain/Head without Contrast IMPRESSION: Chronic involutional changes of the brain. Electronically Signed: Dangelo Saunders MD at 11:22 EDT Tel , Service support ,
--- NOTE | 2019-03-04 10:45 | CASEMGMT ---
RN LEIGH Face to Face with patient for initial transition planning/care coordination assessment. RN CM introduced self and role at [facility]. Patient sitting in chair, slightly confused, at bedside. Patient would like to answer assessment questions at this time, agreeable. Care providers, pharmacy, and demographics verified. Patient and wish for patient to discharge home with possible HHC if needed. states she has no further needs or concerns at this time. CM to follow for discharge planning needs that may arise. PCP: Tar[facility] Specialists: None Preferred Pharmacy: [facility] Insurance: [facility] Prescription Benefit: No Living Will/HPOA: yes, Juany Zhou LNOK: , son Living Arrangements: Patient lives with in basement apartment in a house with son living upstairs. states that patient requires her assistance with ADLs Transportation: DME/HHC: Patient has shower chair, BSC, raised toilet, walker, grab bars at home. Patient has been to [facility] in the past. Denies previous HHC. Disposition Plan: Patient to discharge home with family support and follow-up plans in place. Will monitor for need for HHC. refusing to make decision regarding HHC at this time. Heide FUNESN, RN, CM
--- NOTE | 2019-03-04 17:05 | MRI_ITS ---
STUDY: MRI BRAIN WITHOUT CONTRAST REASON FOR EXAM: Male, 78 years old. Weakness and fever TECHNIQUE: Standardized multiplanar fat and water weighted pulse sequences were obtained. COMPARISON: CT brain March 04, 2019 and MR brain July 08, 2017 FINDINGS: There is moderate cerebral atrophy with widening of the extra-axial spaces and ventricular dilatation. There are multiple white matter hyperintensities, distributed throughout the deep white matter tracts of the cerebral hemispheres, consistent with moderate chronic white matter ischemic changes. There is no evidence for recent intracranial ischemia or other cause of cytotoxic edema on diffusion weighted imaging (DWI). Remote lacunar infarcts noted in the thalamus. There are prominent perivascular spaces (PVS) involving the basal ganglia. There is no extra-axial fluid accumulation. Normal flow voids within the major intracranial circulation suggesting patency by spin echo criteria. Normal sella turcica, pituitary gland, infundibular stalk, optic chiasm and hypothalamus. Normal tectal plate and pineal gland. Normal midbrain, marty and medulla. Normal cerebellum. Normal basal cisterns. Normal bilateral temporal bones. Normal bilateral internal auditory canals. No demonstrated orbital abnormality, within the constraints of a routine brain study. Left maxillary sinus demonstrates mucosal thickening. Normal calvarium and skull base. Normal visualized soft tissue structures. Normal visualized upper cervical spine. MRI/Brain without Contrast IMPRESSION: Involutional changes of the brain, as described above. 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 Electronically Signed: Augusto Escoto MD at 19:56 EDT , Service support ,
[2019-03-04] MEDS: Tamsulosin HCl 0.4 MG Capsule PO (17:16)
--- NOTE | 2019-03-04 17:40 | PCM.PROGNOTE ---
Patient Problems: Active and Suspected Problems (Last Reviewed 09/26/17 @ 10:17 by Zena Jimenez) Fever (Acute) Subjective: Patient was seen and examined today, I talked at length with his and his daughter who is in the room today. Patient's white blood count remains normal today, his temp today peaked at 100.2. Patient was seen by infectious diseases today who agreed with no antibiotic coverage for now and ordered a CT of the brain without contrast which showed chronic involutional changes of the brain. There was evidence of microvascular disease changes and a chronic lacunar infarct of the right thalamus. Normal visualized paranasal sinuses were noted. At this point, I do not know what is causing the patient's temperature elevation, I decided to make the patient a full admission and order an MRI of the brain, CBC will be obtained tomorrow morning. PT and OT are seeing the patient, patient's family state that they want to take the patient home if possible, [place] [facility] [place] in September of this [place] [facility] [place] a year for rehab services. - Physical Exam General: Alert, Cooperative, No apparent distress, Well developed, Lethargic HEENT: Atraumatic, PERRLA, EOMI, Normocephalic Oral: Moist Mucosa Neck: Supple, No JVD, Negative Carotid Bruits, Trachea Midline, Thyroid Normal Size and Texture Lungs: Clear to auscultation, Normal air movement, No rhonchi, No wheeze, No rales, Diminished, Rales Cardiovascular: No murmurs, PMI Normal, Irregular Rate, No rub noted Abdomen: Bowel Sounds Present, Soft, Non Tender, Non-Distended, No hernias noted Extremities: No clubbing, No cyanosis, No edema, Capillary Refill Less than 3 Seconds Skin: No rashes, No breakdown Musculoskeletal: No Tenderness to Palpation of Joints or Extremities Neurological: Cranial nerves II-XII grossly intact, Neuro grossly intact, Sensory exam intact to light touch and pain Psych/Mental Status: Flat Affect, - - Patient appears fatigued and lethargic at times, he answers simple questions appropriately at times Vital Signs Temp Pulse Resp BP Pulse Ox 100.2 F H 84 16 135/95 H 99 03/04/19 14:35 03/04/19 14:35 03/04/19 14:35 03/04/19 14:35 03/04/19 14:35 Oxygen Delivery Method Room Air Weight: 90.718 kg Body Mass Index (BMI) 29.5 Finger Stick Blood Glucose 140 Intake and Output for Last 24 Hours 03/02/19 03/03/19 03/04/19 23:59 23:59 23:59 Intake Total 1764 / 1764 Output Total 100 / 100 Balance 1664 / 1664 Laboratory Tests Past 24 Hrs 03/03/19 03/03/19 03/04/19 18:35 23:20 03:42 WBC 7.7 RBC 4.84 Hgb 14.3 Hct 42.4 MCV 87.6 MCH 29.5 MCHC 33.7 RDW Std Deviation 44.1 H RDW Coeff of Tal 13.7 Plt Count 225 MPV 8.4 Immature Gran % (Auto) 0.500 Neut % (Auto) 71.6 H Lymph % (Auto) 18.2 L [place] % (Auto) 8.5 Eos % (Auto) 0.7 Baso % (Auto) 0.5 Absolute Neuts (auto) 5.5 Absolute Lymphs (auto) 1.40 Absolute Nucleated RBC 0.00 Nucleated RBC % 0 Sodium Potassium Chloride Carbon Dioxide Anion Gap BUN Creatinine Estim Creat Clear Calc Est GFR (MDRD) Af Amer Est GFR (MDRD) Non-Af BUN/Creatinine Ratio Glucose Lactic Acid 2.2 H 2.0 Calcium 03/04/19 03/04/19 03/04/19 03:42 03:42 08:00 WBC RBC Hgb Hct MCV MCH MCHC RDW Std Deviation RDW Coeff of Tal Plt Count MPV Immature Gran % (Auto) Neut % (Auto) Lymph % (Auto) [place] % (Auto) Eos % (Auto) Baso % (Auto) Absolute Neuts (auto) Absolute Lymphs (auto) Absolute Nucleated RBC Nucleated RBC % Sodium 139 Potassium 3.6 Chloride 105 Carbon Dioxide 25.0 Anion Gap 9 BUN 21 H Creatinine 1.01 Estim Creat Clear Calc 61.25 Est GFR (MDRD) Af Amer 92 Est GFR (MDRD) Non-Af 76 BUN/Creatinine Ratio 20.8 H Glucose 118 H Lactic Acid 2.6 H 1.9 Calcium 8.1 L Medical Necessity - Tobacco Use Smoking Status: Never smoker Tobacco Use: Non-smoker Assessment/Plan All Active Problems (Last Reviewed 09/26/17 @ 10:17 by Zena Jimenez) Fever (Acute) Shortness of breath (Acute) Transient ischemic attack (Acute) Gross hematuria (Acute) UTI (urinary tract infection) (Acute) Aphasia (Acute) #1 fever-etiology unclear, again patient was made a full admission today and he will have a repeat CBC tomorrow, I have ordered an MRI of the brain to rule out pathology. #2 generalized weakness/acute on chronic debility-etiology unclear, possibly due to deconditioning on a backdrop of cerebrovascular disease, PT and OT will continue to see the patient, patient's states his functional status has been declining over the last 2 weeks #3 dilated cardiomyopathy-EF 40 to 45%, patient's fluids were decreased to 75 cc an hour #4 chronic atrial fibrillation-patient is not anticoagulated due to risk of bleeding and fall risk #5 cerebrovascular disease #6 essential hypertension Code Visit Inpatient E&M: 52448 Init Hosp L3
[2019-03-04] MEDS: Atorvastatin Calcium 40 MG Tablet PO (21:42)
[2019-03-04] MEDS: 0.9% Normal Saline 1,000 ML 75 ML IV (23:13)
[2019-03-05 02:00] VITALS: BP 145/78; PULSE 80; RESP 18; TEMP 37.3; O2SAT 96
[2019-03-05 05:40] LABS: Absolute Neutrophil Count 5.4 X10^3/uL (2.0-7.7); Basophil# 0.04 X10^3/uL; Basophil% 0.5 % (0-1); Eosinophil# 0.08 X10^3/uL; Hematocrit 42.3 % (40-54); Hemoglobin 14.6 g/dL (13.0-16.5); Lymphocyte % 20.4 % (19-41); Mean Corp Hgb Conc 34.5 g/dL (32-36); Mean Corpuscular Hgb 29.8 pg (27.0-32.0); Mean Corpuscular Volume 86.3 fL (80-94); Mean Platelet Vol. 8.6 fl (6.2-12.0); Monocyte# 0.66 X10^3/uL; Monocyte% 8.4 % (0-10); NRBC Flagged by Analyzer 0 % (0-5); Neutrophil # 5.43 X10^3/uL (2.7-7.7); Neutrophil % 69.3 % (47-70); Platelet Count 218 K/mm3 (150-450); RBC Distribution Width CV 14.1 % (11.6-14.6); RBC Distribution Width SD 43.9 fl (35.1-43.9); White Blood Count 7.8 K/mm3 (4.4-11.0)
--- NOTE | 2019-03-05 09:16 | PCM.PN.ID ---
Patient Problems: Active and Suspected Problems (Last Reviewed 09/26/17 @ 10:17 by Zena Jimenez) Fever (Acute) Subjective: Patient had a relatively uneventful night. Denies any specific complaints. No gastrointestinal distress. No cardiopulmonary symptoms. No further fevers. Objective: Alert does not appear toxic lungs are clear heart exam S1-S2 abdomen soft nontender. Blood cultures pending so far negative - Physical Exam Vital Signs Temp Pulse Resp BP Pulse Ox 99.1 F 80 18 145/78 H 96 03/05/19 02:00 03/05/19 02:00 03/05/19 02:00 03/05/19 02:00 03/05/19 02:00 Oxygen Delivery Method Room Air Weight: 90.718 kg Body Mass Index (BMI) 29.5 Finger Stick Blood Glucose 140 Intake and Output for Last 24 Hours 03/03/19 03/04/19 03/05/19 23:59 23:59 23:59 Intake Total 2641 / 2641 624 / 624 Output Total 100 / 100 Balance 2541 / 2541 624 / 624 Laboratory Tests Past 24 Hrs 03/05/19 05:08 WBC 7.8 RBC 4.90 Hgb 14.6 Hct 42.3 MCV 86.3 MCH 29.8 MCHC 34.5 RDW Std Deviation 43.9 RDW Coeff of Tal 14.1 Plt Count 218 MPV 8.6 Immature Gran % (Auto) 0.400 Neut % (Auto) 69.3 Lymph % (Auto) 20.4 [place] % (Auto) 8.4 Eos % (Auto) 1.0 Baso % (Auto) 0.5 Absolute Neuts (auto) 5.4 Absolute Lymphs (auto) 1.60 Absolute Nucleated RBC 0.00 Nucleated RBC % 0 Medical Necessity - Tobacco Use Smoking Status: Never smoker Tobacco Use: Non-smoker Route of nutrition/ use of supplements: [] Nutritional Intake: [] IV Site: [] Hargrove Catheter: [] - Assessment/Plan Antibiotics: [] Assessment/Plan: [] Active and Suspected Problems (Last Reviewed 09/26/17 @ 10:17 by Zena Jimenez) Fever (Acute) Unexplained fever, currently does not appear toxic and no focal findings of infection clinically. Microbiological data pending. Remains off antimicrobial therapy.
[2019-03-05 09:17] VITALS: BP 152/97; PULSE 71; RESP 16; TEMP 37.1; O2SAT 96
[2019-03-05 09:36] VITALS: PULSE 71
[2019-03-05] MEDS: Aspirin E.C. 81 MG Tablet PO (09:36)
[2019-03-05] MEDS: Metoprolol(XL)Succ 100 MG Tablet PO (09:36)
[2019-03-05] MEDS: Lisinopril 20 MG Tablet PO (09:36)
[2019-03-05] MEDS: Furosemide 40 MG Tablet PO (09:36)
[2019-03-05 11:51] VITALS: BP 140/104; PULSE 62; RESP 16; TEMP 37.3; O2SAT 97
--- NOTE | 2019-03-05 13:27 | DCINST_ITS ---
- Discharge Diagnoses Current Active Problems: Current Active and Chronic Problems (Last Reviewed 09/26/17 @ 10:17 by Zena Jimenez) Fever (Acute) You will use the following diet at home:: No restrictions Your liquids should be the consistency of: Regular/Thin Discharge Activity: Return to Normal Activity Weight Bearing Status: Full weight bearing Allergies/Adverse Reactions: Allergies donepezil [From Aricept] Adverse Reaction (Verified 03/03/19 12:47) Other increase stiffness could not move per levetiracetam [From Keppra] Adverse Reaction (Verified 03/03/19 12:47) Other Medications to take at Discharge Atorvastatin Calcium [Lipitor] 40 mg PO QHS #30 tab 07/23/17 Lisinopril [Zestril] 20 mg PO DAILY #30 tab 07/23/17 Aspirin [Aspir-Low] 81 mg PO DAILY 03/03/19 Tamsulosin HCl [Flomax] 0.4 mg PO DAILY 03/03/19 Finasteride [Proscar] 5 mg PO DAILY #30 tab 03/05/19 Furosemide [Lasix] 20 mg PO DAILY #30 tab 03/05/19 Metoprolol Tartrate [Lopressor (beta leydi)] 100 mg PO BID #60 tab 03/05/19 The following prescriptions were given: Furosemide [Lasix] 20 mg PO DAILY #30 tab Prescription Printed Metoprolol Tartrate [Lopressor (beta leydi)] 100 mg PO BID #60 tab Prescription Printed Finasteride [Proscar] 5 mg PO DAILY #30 tab Prescription Printed Primary Care Physician: Parmjit Grajeda MD [Primary Care Provider] - Please follow up with your Primary Care Physician in: in 1-2 weeks Test Results: Test results from this visit will be discussed in further detail at your follow- up appointment, if applicable.
--- NOTE | 2019-03-05 13:50 | CASEMGMT ---
RN CM in to discuss need for HHC. is denying need for HHC at discharge. RN CM informed that if the patient would need HHC in the future to follow-up with the PCP. voiced understanding and denied further needs at this time.
--- NOTE | 2019-03-07 09:00 | PCM.DC.SUM ---
Discharge Date and Diagnosis Date of Admission: 03/03/19 Date of Discharge: 03/05/19 - Primary Discharge Diagnosis #1 fever-etiology unknown #2 generalized weakness/acute on chronic debility possibly due to deconditioning on a backdrop of cerebrovascular disease #3 dilated cardiomyopathy-EF 40 to 45% #4 chronic atrial fibrillation-patient not anticoagulated due to risk of bleeding and fall risk #5 cerebrovascular disease #6 essential hypertension - Secondary Discharge Diagnosis Chronic Problems (Last Reviewed 09/26/17 @ 10:17 by Zena Jimenez) History of abnormal breathing pattern (Chronic) Cardiomyopathy (Chronic) EF 40-45% 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) BPH (benign prostatic hypertrophy) (Chronic) Edema (Chronic) Hyperlipidemia (Chronic) Debility (Chronic) A-fib (Chronic) Hypertension (Chronic) Hospital Course and Treatment Operations: None Procedures: None Summary of Care Provided: The patient is a 78 year old M was seen in the emergency room at [facility] with a chief complaint of generalized weakness and low-grade fever over 1 week. Work-up in the emergency room showed a normal white blood cell count, chemistry panel was normal, chest x-ray was normal, lactic acid was 2, and urinalysis was unremarkable. Patient was admitted to [place] [address] for fever of unknown origin, initially he was given antibiotics by the emergency room but these were not continued. Patient was seen in consultation by infectious diseases recommended not giving the patient any antibiotics. Patient was seen by PT and OT due to generalized debility-this was due to a combination of deconditioning and cerebrovascular disease from an old stroke. Patient improved during his hospital stay, he was afebrile and his blood cultures were negative for growth. On 03/05/2019, patient was seen and examined: On examination he appeared in good health and spirits. Vital signs as documented. Skin warm and dry and without overt rashes. Neck without JVD. Lungs clear. Heart exam notable for regular rhythm, normal sounds and absence of murmurs, rubs or gallops. Abdomen unremarkable and without evidence of organomegaly, masses, or abdominal aortic enlargement. Extremities nonedematous. Neuro: Cranial nerves II through XII are grossly intact, no focal motor deficits were noted, sensation to light touch and pinprick intact. Psych: Patient is alert and oriented x3, he does not appear anxious or depressed On 03/05/2019, patient was seen and examined and felt to be in stable condition for discharge home. stated that she did not need home nursing service. - Physical Exam Vital Signs Temp Pulse Resp BP Pulse Ox 99.2 F H 62 16 140/104 H 97 03/05/19 11:51 03/05/19 11:51 03/05/19 11:51 03/05/19 11:51 03/05/19 11:51 Oxygen Delivery Method Room Air Weight: 90.718 kg Body Mass Index (BMI) 29.5 Finger Stick Blood Glucose 140 Intake and Output for Last 24 Hours 03/05/19 03/06/19 03/07/19 23:59 23:59 23:59 Intake Total 1374 / 1374 Balance 1374 / 1374 Microbiology Past 72 Hours 03/03/19 14:00 Blood Culture - Preliminary Blood Culture (Wb) - Left Hand No growth in 48 hours. 03/03/19 13:35 Blood Culture - Preliminary Blood Culture (Wb) - Anticubital Right No growth in 48 hours. Discharge Activity: Return to Normal Activity Weight Bearing Status: Full weight bearing Home Medications: Medications to take at Discharge Atorvastatin Calcium [Lipitor] 40 mg PO QHS #30 tab 07/23/17 Lisinopril [Zestril] 20 mg PO DAILY #30 tab 07/23/17 Aspirin [Aspir-Low] 81 mg PO DAILY 03/03/19 Tamsulosin HCl [Flomax] 0.4 mg PO DAILY 03/03/19 Finasteride [Proscar] 5 mg PO DAILY #30 tab 03/05/19 Furosemide [Lasix] 20 mg PO DAILY #30 tab 03/05/19 Metoprolol Tartrate [Lopressor (beta leydi)] 100 mg PO BID #60 tab 03/05/19 Following Prescrptions Were Given to Patient: Furosemide [Lasix] 20 mg PO DAILY #30 tab Prescription Printed Metoprolol Tartrate [Lopressor (beta leydi)] 100 mg PO BID #60 tab Prescription Printed Finasteride [Proscar] 5 mg PO DAILY #30 tab Prescription Printed Primary Care Physician: Parmjit Grajeda MD [Primary Care Provider] - Please follow up with your Primary Care Physician in: in 1-2 weeks Disposition: Home Minutes spent on discharge:: 32 Patient Condition:: Stable Medical Necessity - Tobacco Use Smoking Status: Never smoker Tobacco Use: Non-smoker Meaningful Use Info Meaningful Use Diagnoses (Choose all that apply): None applicable Code Visit Inpatient E&M: 49817 Disch Hosp
== END 2019-03-05 14:11 | disposition home or self-care (01) | DRG 864 ==
LOC: ED 13:40 → MS3 03-04 06:07
PROVIDERS: Hospitalist; Admitting Provider Student in an Organized Health Care Education/Training Program; Emergency Provider Emergency Medicine; Family Provider Family Medicine; PCP Family Medicine; Referring Provider Student in an Organized Health Care Education/Training Program; Visit Provider Internal Medicine
DX: R50.9 Fever, unspecified (principal); E87.2 Acidosis; I42.0 Dilated cardiomyopathy; I69.354 Hemiplegia and hemiparesis following cerebral infarction affecting left non-dominant side; I48.2 Chronic atrial fibrillation; I10 Essential (primary) hypertension; N40.0 Benign prostatic hyperplasia without lower urinary tract symptoms; R53.81 Other malaise; E78.5 Hyperlipidemia, unspecified
CPT/HCPCS: 36415; 70450; 70551; 71045; 80048; 81001; 83605; 85025; 87040; 97162; 97166; 97530; 99285; J7030; J7040; J7050; A4216

== ENCOUNTER 2019-05-31 22:15 | Inpatient (IN) | payer MEDICARE, OTHER, SELFPAY ==
[2019-03-03 17:10] VITALS: BMI 29.5
[2019-05-31 22:16] VITALS: BP 150/68; PULSE 58; RESP 18; TEMP 36.3; O2SAT 94; BMI 28.1
--- NOTE | 2019-05-31 23:05 | EKG12_ITS ---
Test Reason : AFIB Blood Pressure : / mmHG Vent. Rate : 106 BPM Atrial Rate : 088 BPM P-R Int : 000 ms QRS Dur : 092 ms QT Int : 340 ms P-R-T Axes : 000 -02 054 degrees QTc Int : 451 ms Atrial fibrillation with rapid ventricular response with premature ventricular or aberrantly conducte d complexes Moderate voltage criteria for LVH, may be normal variant Abnormal ECG Confirmed by LIZBETH HORTON, ROSINA ([id number]), dictionary editor LINDA MUKHERJEE ([id number]) on 06/02/2019 8:54:53 AM Referred By: FERNANDO Confirmed By:ROSINA NIEVES MD
--- NOTE | 2019-05-31 23:08 | RAD_ITS ---
STUDY: X-RAY CHEST REASON FOR EXAM: Male, 78 years old. Cough TECHNIQUE: Frontal view COMPARISON: March 03, 2019 FINDINGS: The lungs are expanded. Bibasilar infiltrates, right more than left. Normal size heart. Normal mediastinum and vikas. Normal visualized pulmonary arteries. Normal visualized aortic arch and descending thoracic aorta. Normal visualized thoracic spine. Normal visualized ribs, clavicles, and shoulders. There is no demonstrated abnormality of the visualized soft tissue structures of the upper abdomen. RAD/Chest 1 View (Portable) IMPRESSION: Bilateral basilar infiltrates. Electronically Signed: Elio Mayo DO at 23:27 EDT Tel [phone], Service support ,
--- NOTE | 2019-05-31 23:22 | ED.DCSUM_ITS ---
History of Present Illness Chief Complaint: Complaint Informant: Patient Onset: Days - 1-1.5 Context: Gradual Onset Timing: Continuous Quality: feels need to urinate but cannot Location: Current Severity: Moderate Maximum Severity: Moderate Worsened by: n/a Relieved by: n/a Associated Symptoms: productive cough, malaise. no hematuria, fever/chills, burning dysuria. Narrative: Patient had a hemorrhagic thalamic stroke, he has been in and out of nursing homes, recently his who cares for him at home, had to have a hysterectomy so he was admitted to a longterm for respite care, when she recovered she took came out, this was about 2 weeks ago, and he developed a cough while he was still there, as did the . They were both seen as an outpatient and placed on Z-Gustabo. He finished his Z-Gustabo 3 days ago. Still coughing, denies any dyspnea, but has a very wet cough. He denies any abdominal pain. No back pain. No hematuria or burning dysuria but he was up all night last night because of symptoms of urinary retention. He has a history of enlarged prostate, he was on finasteride but is no longer taking it for reasons that are unknown and for unknown duration. He does not have a urologist. No known history of prostate cancer. states her plan was to test his urine at home with some dipsticks that she has, however he has produced no measurable amounts of urine except for a couple spots on his underwear that were nonbloody. - Past Medical History (1) Aphasia Status: Chronic (2) Gross hematuria Status: Resolved (3) Transient ischemic attack Status: Chronic (4) UTI (urinary tract infection) Status: Resolved (5) A-fib Status: Chronic (6) BPH (benign prostatic hypertrophy) Status: Chronic (7) Cardiomyopathy Status: Chronic Comment: EF 40-45% (8) Debility Status: Chronic (9) Hyperlipidemia Status: Chronic (10) Hypertension Status: Chronic (11) Thalamic hemorrhage with stroke Status: Chronic Past Medical History - Allergies and Home Meds Allergies/Adverse Reactions: Allergies donepezil [From Aricept] Adverse Reaction (Verified 05/31/19 22:19) Other increase stiffness could not move per levetiracetam [From Keppra] Adverse Reaction (Verified 05/31/19 22:19) Other Primary Care Physician: Parmjit Grajeda MD [Primary Care Provider] - Surgical History: no surgical history Lives: Spouse/ Significant Other Smoking Status: Never smoker Drugs: None - Family History Maternal Family History: Family History (Last Reviewed 09/26/17 @ 10:17 by Zena Jimenez) Father Myocardial infarction Family History: Reports: No pertinent history Paternal Family History: Family History (Last Reviewed 09/26/17 @ 10:17 by Zena Jimenez) Father Myocardial infarction Family History: Reports: No pertinent history Review of Systems General: Denies: Chills, Fever, Sweats Eyes: Denies: Visual changes - bilaterally, Diplopia ENT: Denies: Bilateral ear pain, Rhinorrhea, Sore throat Cardiovascular: Denies: Chest pain, Palpitations, Heart racing Respiratory: Reports: Cough, Sputum - No hemoptysis. Denies: Dyspnea, Dyspnea on exertion Gastrointestinal: Reports: Abdominal pain - Suprapubic discomfort. Denies: Nausea, Vomiting, Diarrhea, Melena, Hematochezia Genitourinary: Reports: - - Urinary retention. Denies: Dysuria, Hematuria, Frequency Musculoskeletal: Denies: Back pain, Swelling, Extremity Pain Skin: Denies: Rash, Wounds Neurological: Reports: - - Able to walk, problems coordinating legs to walk and coordinating left upper extremity/hand but good strength. Able to walk with walker.. Denies: Headache, Weakness, Numbness Physical Exam Vital Signs/Narrative: Vital Signs Temp Pulse Resp BP Pulse Ox 05/31/19 22:16 97.4 F L 58 L 18 150/68 H 94 Inital Vital Signs reviewed: Yes General: Well nourished, Well developed, No Acute Distress - Moaning. Able to converse and suppressive when asked questions. Head: Normocephalic, Atraumatic Eyes: Perrl, EOMI ENT: Moist mucous membranes, No rhinorrhea Neck: Supple, Nontender, No lymphadenopathy, No JVD Cardiovascular: No murmurs, Irregular, Tachycardia Respiratory: Chest nontender, Rhonchi - Right base, after coughing, Wheezing - Prior to coughing, cleared afterwards. Expiratory.. Negative for: Rales, Retractions Abdomen: Soft, Nondistended, Normal bowel sounds, Tender - Mild suprapubic only. Negative for: Guarding, Rebound tenderness Back: Nontender, Normal Inspection Extremities: Nontender, No edema Skin: Normal color, No rash, No Trauma Neurological: Alert, Oriented x3, Cranial nerves II-XII grossly intact, Normal Strength, Normal Sensation Psychological: Normal affect, Normal Mood Diagnostic/Tx/Re-eval Impressions Chest X-Ray 05/31/19 23:08 IMPRESSION: Bilateral basilar infiltrates. Electronically Signed: Elio Mayo DO at 23:27 EDT Tel [phone], Service support , 05/31/19 23:08 Chest 1 View (Portable) [RAD] Stat Laboratory Results 05/31/19 05/31/19 05/31/19 23:35 23:35 23:35 WBC 10.9 RBC 4.70 Hgb 14.0 Hct 42.8 MCV 91.1 MCH 29.8 MCHC 32.7 RDW Std Deviation 45.1 H RDW Coeff of Tal 13.2 Plt Count 425 MPV 8.6 Immature Gran % (Auto) 3.600 H Neut % (Auto) 73.2 H Lymph % (Auto) 16.0 L [place] % (Auto) 5.8 Eos % (Auto) 0.6 Baso % (Auto) 0.8 Absolute Neuts (auto) 8.0 H Absolute Lymphs (auto) 1.74 Nucleated RBC % 0 PT 15.6 H INR 1.3 APTT 32.8 Sodium 139 Potassium 2.9 L Chloride 99 Carbon Dioxide 33.0 H Anion Gap 7 BUN 11 Creatinine 0.78 Estim Creat Clear Calc 57.84 Est GFR (MDRD) Af Amer 124 Est GFR (MDRD) Non-Af 103 BUN/Creatinine Ratio 14.2 Glucose 141 H Lactic Acid Calcium 8.4 L Total Bilirubin 0.40 AST 18 ALT 14 L Alkaline Phosphatase 96 Total Protein 7.0 Albumin 2.1 L Globulin 4.9 H Albumin/Globulin Ratio 0.4 L Urine Color Urine Clarity Urine pH Ur Specific [place] Urine Protein Urine Glucose (UA) Urine Ketones Urine Occult Blood Urine Nitrite Urine Bilirubin Urine Urobilinogen Ur Leukocyte Esterase Urine RBC Urine WBC Ur Squamous Epith Cells Urine Bacteria Urine Mucus 05/31/19 06/01/19 23:35 00:20 WBC RBC Hgb Hct MCV MCH MCHC RDW Std Deviation RDW Coeff of Tal Plt Count MPV Immature Gran % (Auto) Neut % (Auto) Lymph % (Auto) [place] % (Auto) Eos % (Auto) Baso % (Auto) Absolute Neuts (auto) Absolute Lymphs (auto) Nucleated RBC % PT INR APTT Sodium Potassium Chloride Carbon Dioxide Anion Gap BUN Creatinine Estim Creat Clear Calc Est GFR (MDRD) Af Amer Est GFR (MDRD) Non-Af BUN/Creatinine Ratio Glucose Lactic Acid 1.9 Calcium Total Bilirubin AST ALT Alkaline Phosphatase Total Protein Albumin Globulin Albumin/Globulin Ratio Urine Color Yellow Urine Clarity Clear Urine pH 7.0 Ur Specific [place] 1.010 Urine Protein Negative Urine Glucose (UA) Normal Urine Ketones Negative Urine Occult Blood Negative Urine Nitrite Negative Urine Bilirubin Negative Urine Urobilinogen Normal Ur Leukocyte Esterase Negative Urine RBC 0 SEEN Urine WBC 0 SEEN Ur Squamous Epith Cells 0 SEEN Urine Bacteria 0 SEEN Urine Mucus 0 SEEN - Rhythm Strip Rhythm Strip: A-fib Rate: 118 Ectopy: PVC(s) - EKG Initial EKG Interpretation: No Acute Injury Pattern, Atrial Fibrillation, Non-Specific ST Changes Prior: Unchanged - Medical Decision Making Initially did a bladder scan which showed less than 100 cc, but given his symptoms, and inability urinate we had a Hargrove placed. He was able to void just a little, and then when the Hargrove was placed there was an additional 120 cc or so. I think this is all consistent with urinary retention given his symptoms especially. He ended up having quite a bit of discomfort with bladder spasms which we are going to treat with an opium and belladonna suppository, and mor phine on top of that if it does not help. He currently has a Zithromax in his system, and his chest x-ray shows bibasilar infiltrates, it is clearly present on the right where he clinically sounds like he has pneumonia. Therefore he is given IV Zosyn and vancomycin to cover for healthcare associated pneumonia and the plan is for admission to continue these given failure of outpatient therapy. He is borderline hypoxic, at rest. We have him on a 2 L nasal cannula, he is not on any oxygen at home. Urinalysis results show no sign of infection. Discussed with hospitalist for PCU admission. His lactate is within normal limits so he does not need a large IV fluid bolus at this time and his blood pressure is stable and actually elevated because of his bladder spasm pain. ED Disposition - Plan for ED Patient: Disposition: Acute Care Hospital [facility] Diagnosis: HCAP (healthcare-associated pneumonia), Sepsis due to pneumonia, Atrial fibrillation with RVR, Acute urinary retention, Failure of outpatient treatment Referrals: Parmjit Grajeda MD [Primary Care Provider] -
[2019-05-31 23:41] VITALS: BP 145/93; PULSE 104; RESP 22; O2SAT 93
[2019-05-31 23:54] LABS: Absolute Lymphocyte Count 1.74 X10^3/uL (0.83-4.51); Basophil# 0.09 X10^3/uL; Basophil% 0.8 % (0-1); Eosinophil# 0.06 X10^3/uL; Eosinophils% 0.6 % (0-5); Hematocrit 42.8 % (40-54); Lymphocyte # 1.74 X10^3/ul (4.0); Mean Corp Hgb Conc 32.7 g/dL (32-36); Mean Corpuscular Hgb 29.8 pg (27.0-32.0); Mean Corpuscular Volume 91.1 fL (80-94); Mean Platelet Vol. 8.6 fl (6.2-12.0); Monocyte# 0.63 X10^3/uL; Monocyte% 5.8 % (0-10); NRBC Flagged by Analyzer 0 % (0-5); Neutrophil # 7.96 X10^3/uL (2.7-7.7); Neutrophil % 73.2 % (47-70); Platelet Count 425 K/mm3 (150-450); RBC Distribution Width CV 13.2 % (11.6-14.6); RBC Distribution Width SD 45.1 fl (35.1-43.9); White Blood Count 10.9 K/mm3 (4.4-11.0)
[2019-06-01] VITALS (21 sets, daily range): BP systolic 116–176; BP diastolic 75–110; PULSE 71–171; RESP 16–26; TEMP 36.6–37.1; O2SAT 93–96; BMI 28.2; BMI 30.7
[2019-06-01 00:01] LABS: International Normalized Ratio 1.3; Prothrombin Time (Protime)PT. 15.6 SECONDS (11.7-14.9)
[2019-06-01 00:02] LABS: Partial Thromboplast Time 32.8 Seconds (24.1-36.2)
[2019-06-01 00:16] LABS: ALB/GLOB Ratio 0.4 RATIO (0.9-2.4); AST(SGOT) 18 U/L (15-37); Alanine Aminotransfer ALT/SGPT 14 U/L (16-61); Albumin, Serum 2.1 g/dL (3.2-5.0); Alkaline Phosphatase 96 U/L (45-117); Anion Gap 7 (5-15); BUN 11 mg/dL (7-18); BUN/Creat Ratio 14.2 RATIO (10-20); Calcium,Total 8.4 mg/dL (8.5-10.1); Chloride 99 mmol/L (98-107); Creatinine, Serum 0.78 mg/dL (0.70-1.30); EST Glomerular Filtration Rate 103 mL/min (>60); Est Glom Filt Rate - Afr Amer 124 mL/min (>60); Estimated Creatinine Clearance 57.84 ml/min; Globulin 4.9 g/dL (2.2-4.2); Glucose 141 mg/dL (74-106); Potassium 2.9 mmol/L (3.5-5.1); Sodium Level 139 mmol/L (136-145)
[2019-06-01 00:18] LABS: Lactic Acid 1.9 mmol/L (0.4-2.0)
[2019-06-01] MEDS: Lidocaine Jelly 2% 20 ML Syringe (URO-JET) 10 APPLIC TOPICAL (00:20)
[2019-06-01 00:33] LABS: Bacteria 0 SEEN /hpf (None Seen); Mucous, Urine 0 SEEN /hpf (<or=2+); Red Blood Cells-Urine 0 SEEN /hpf (0-5); Squamous Epithelial Cells - UA 0 SEEN /hpf (0-5); White Blood Cells 0 SEEN /hpf (0-5)
[2019-06-01 00:34] LABS: Color, Urine Yellow (Yellow); Glucose, Dipstick Normal (Normal); Ketone-Dipstick Negative (Negative); Leukocyte Esterase-Dipstick Negative /ul (Negative); Nitrite-Dipstick Negative (Negative); Occult Blood-Urine Negative /ul (Negative); Protein-Dipstick Negative (Negative); Urine Bilirubin Dipstick Negative (Negative); Urine Clarity Clear (Clear); Urine Urobilinogen Normal (Normal)
--- NOTE | 2019-06-01 01:26 | PCM.HP.STD ---
Problem List (1) HCAP (healthcare-associated pneumonia) Status: Acute (2) Acute urinary retention Status: Acute (3) Failure of outpatient treatment Status: Acute (4) Shortness of breath Status: Acute (5) Cardiomyopathy Status: Chronic Qualifiers: Cardiomyopathy type: other Qualified Code(s): I42.8 - Other cardiomyopathies; I42.8 - Other cardiomyopathies; I42.8 - Other cardiomyopathies; I42.8 - Other cardiomyopathies Comment: EF 40-45% (6) BPH (benign prostatic hypertrophy) Status: Chronic (7) Hyperlipidemia Status: Chronic Qualifiers: Hyperlipidemia type: mixed hyperlipidemia Qualified Code(s): E78.2 - Mixed hyperlipidemia; E78.2 - Mixed hyperlipidemia; E78.2 - Mixed hyperlipidemia (8) Debility Status: Chronic (9) A-fib Status: Chronic Qualifiers: Atrial fibrillation type: chronic (10) Hypertension Status: Chronic Qualifiers: Hypertension type: essential hypertension Qualified Code(s): I10 - Essential (primary) hypertension; I10 - Essential (primary) hypertension; I10 - Essential (primary) hypertension History of Present Illness Date of Admission: 06/01/19 Chief Complaint: shortness of breath and urinary retention The patient is a 78 year old male patient with a past medical history of thalamic stroke who has been in and out of the intermediate several times presents to the emergency room with inability to urinate and shortness of breath. Recently the patient was at [facility] for respite care while his had a total abdominal hysterectomy, upon return from that stay he had respiratory illness and was placed on a Z-Gustabo by his primary care. Despite this treatment the patient presents with shortness of breath and x-ray reveals bilateral lower lobe infiltrates. The patient also had inability to void urine and a Hargrove catheter was placed. The patient will be placed in progressive care unit for further management of care acquired pneumonia and urinary retention but will get case finishing machine adjuster to help discuss discharge planning. Past Medical History Past Medical History (Chronic Problems): Chronic Problems (Last Reviewed 09/26/17 @ 10:17 by Zena Jimenez) History of abnormal breathing pattern (Chronic) Transient ischemic attack (Chronic) Cardiomyopathy (Chronic) EF 40-45% 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) BPH (benign prostatic hypertrophy) (Chronic) Edema (Chronic) Hyperlipidemia (Chronic) Aphasia (Chronic) Debility (Chronic) A-fib (Chronic) Hypertension (Chronic) Medical History: Medical History (Last Reviewed 09/26/17 @ 10:17 by Zena Jimenez) Transient ischemic attack (Chronic) Cardiomyopathy (Chronic) I42.9 EF 40-45% Gross hematuria (Resolved) UTI (urinary tract infection) (Resolved) N39.0 Choreiform movement (Chronic) R25.8 Thalamic hemorrhage with stroke (Chronic) I61.9 BPH (benign prostatic hypertrophy) (Chronic) N40.0 Edema (Chronic) R60.9 Hyperlipidemia (Chronic) E78.5 Aphasia (Chronic) R47.01 Debility (Chronic) R53.81 A-fib (Chronic) I48.91 Hypertension (Chronic) I10 Allergies donepezil [From Aricept] Adverse Reaction (Verified 05/31/19 22:19) Other increase stiffness could not move per levetiracetam [From Keppra] Adverse Reaction (Verified 05/31/19 22:19) Other Home Medications: Ambulatory Orders Medication Instructions Recorded Atorvastatin Calcium [Lipitor] 40 mg PO QHS #30 tab 07/23/17 Lisinopril [Zestril] 20 mg PO DAILY #30 tab 07/23/17 Aspirin [Aspir-Low] 81 mg PO DAILY 03/03/19 Furosemide [Lasix] 20 mg PO DAILY #30 tab 03/05/19 Metoprolol Tartrate [Lopressor 100 mg PO BID #60 tab 03/05/19 (beta leydi)] Surgical History: no surgical history Psychiatric History: No pertinent psych hx Lives: Spouse/ Significant Other Smoking Status: Never smoker Drugs: None - *Family History Maternal Family History: Family History (Last Reviewed 09/26/17 @ 10:17 by Zena Jimenez) Father Myocardial infarction History Items: No pertinent history Paternal Family History: Family History (Last Reviewed 09/26/17 @ 10:17 by Zena Jimenez) Father Myocardial infarction History Items: No pertinent history Review of Systems Constitutional: Reports: Fever. Denies: Chills, Weight Change HEENT: Denies: Head Aches, Sinus Congestion, Sinus Drainage Cardiovascular: Denies: Chest Pain, Palpitations Respiratory: Reports: Cough, Shortness of breath at rest. Denies: Sputum production Gastrointestinal: Denies: Abdominal Pain, Nausea, Vomiting Genitourinary: Reports: Retention, Urgency. Denies: Dysuria Musculoskeletal: Denies: Joint Pain, Joint Tenderness Skin: Denies: Rash, Wounds Neurological: Denies: Numbness, Tingling, Focal weakness Psychiatric: Denies: Anxiety, Depression, Homicidal Ideations, Suicidal Ideations Hematologic/ Lymphatic: Denies: Easy Bruising, Easy Bleeding VTE Information - Inpt Only VTE Present on Admission: No VTE Mechan Device Prophylaxis: None VTE Pharm Prophylaxis ordered?: Yes Patient Problems: Active and Suspected Problems (Last Reviewed 09/26/17 @ 10:17 by Zena Jimenez) HCAP (healthcare-associated pneumonia) (Acute) Sepsis due to pneumonia (Acute) Atrial fibrillation with RVR (Acute) Acute urinary retention (Acute) Failure of outpatient treatment (Acute) - Physical Exam General: Alert, Cooperative HEENT: Atraumatic, Normocephalic Neck: Supple Lungs: Diminished, Rhonchi, Short of Breath Cardiovascular: Normal S1, Normal S2, No murmurs, Irregular Rate, Tachycardic Abdomen: Bowel Sounds Present, Soft, Non Tender Extremities: No edema Skin: No rashes Musculoskeletal: No Tenderness to Palpation of Joints or Extremities Neurological: - - left arm motor discoordination present, repetive grunting sounds also Psych/Mental Status: Appropriate Vital Signs Temp Pulse Resp BP Pulse Ox 98.8 F 106 H 22 H 170/106 H 95 06/01/19 00:28 06/01/19 00:28 06/01/19 00:28 06/01/19 00:28 06/01/19 00:28 Oxygen Flow Rate (L/min) 2 Oxygen Delivery Method Nasal Cannula Weight: 180 lb Body Mass Index (BMI) 28.1 Finger Stick Blood Glucose 140 Laboratory Tests Past 24 Hrs 05/31/19 05/31/19 05/31/19 23:35 23:35 23:35 WBC 10.9 RBC 4.70 Hgb 14.0 Hct 42.8 MCV 91.1 MCH 29.8 MCHC 32.7 RDW Std Deviation 45.1 H RDW Coeff of Tal 13.2 Plt Count 425 MPV 8.6 Immature Gran % (Auto) 3.600 H Neut % (Auto) 73.2 H Lymph % (Auto) 16.0 L [place] % (Auto) 5.8 Eos % (Auto) 0.6 Baso % (Auto) 0.8 Absolute Neuts (auto) 8.0 H Absolute Lymphs (auto) 1.74 Nucleated RBC % 0 PT 15.6 H INR 1.3 APTT 32.8 Sodium 139 Potassium 2.9 L Chloride 99 Carbon Dioxide 33.0 H Anion Gap 7 BUN 11 Creatinine 0.78 Estim Creat Clear Calc 57.84 Est GFR (MDRD) Af Amer 124 Est GFR (MDRD) Non-Af 103 BUN/Creatinine Ratio 14.2 Glucose 141 H Lactic Acid Calcium 8.4 L Total Bilirubin 0.40 AST 18 ALT 14 L Alkaline Phosphatase 96 Total Protein 7.0 Albumin 2.1 L Globulin 4.9 H Albumin/Globulin Ratio 0.4 L Urine Color Urine Clarity Urine pH Ur Specific [place] Urine Protein Urine Glucose (UA) Urine Ketones Urine Occult Blood Urine Nitrite Urine Bilirubin Urine Urobilinogen Ur Leukocyte Esterase Urine RBC Urine WBC Ur Squamous Epith Cells Urine Bacteria Urine Mucus 05/31/19 06/01/19 23:35 00:20 WBC RBC Hgb Hct MCV MCH MCHC RDW Std Deviation RDW Coeff of Tal Plt Count MPV Immature Gran % (Auto) Neut % (Auto) Lymph % (Auto) [place] % (Auto) Eos % (Auto) Baso % (Auto) Absolute Neuts (auto) Absolute Lymphs (auto) Nucleated RBC % PT INR APTT Sodium Potassium Chloride Carbon Dioxide Anion Gap BUN Creatinine Estim Creat Clear Calc Est GFR (MDRD) Af Amer Est GFR (MDRD) Non-Af BUN/Creatinine Ratio Glucose Lactic Acid 1.9 Calcium Total Bilirubin AST ALT Alkaline Phosphatase Total Protein Albumin Globulin Albumin/Globulin Ratio Urine Color Yellow Urine Clarity Clear Urine pH 7.0 Ur Specific [place] 1.010 Urine Protein Negative Urine Glucose (UA) Normal Urine Ketones Negative Urine Occult Blood Negative Urine Nitrite Negative Urine Bilirubin Negative Urine Urobilinogen Normal Ur Leukocyte Esterase Negative Urine RBC 0 SEEN Urine WBC 0 SEEN Ur Squamous Epith Cells 0 SEEN Urine Bacteria 0 SEEN Urine Mucus 0 SEEN Assessment/Plan All Active Problems (Last Reviewed 09/26/17 @ 10:17 by Zena Jimenez) Fever (Acute) HCAP (healthcare-associated pneumonia) (Acute) Sepsis due to pneumonia (Acute) Atrial fibrillation with RVR (Acute) Acute urinary retention (Acute) Failure of outpatient treatment (Acute) Shortness of breath (Acute) Gross hematuria (Resolved) UTI (urinary tract infection) (Resolved) Chronic Problems (Last Reviewed 09/26/17 @ 10:17 by Zena Jimenez) History of abnormal breathing pattern (Chronic) Transient ischemic attack (Chronic) Cardiomyopathy (Chronic) EF 40-45% 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) BPH (benign prostatic hypertrophy) (Chronic) Edema (Chronic) Hyperlipidemia (Chronic) Aphasia (Chronic) Debility (Chronic) A-fib (Chronic) Hypertension (Chronic) Plan 1. Urinary retention?Hargrove catheter placed, monitor I's and O's medication was given in the emergency room to help with discomfort and bladder spasm. 2. Healthcare acquired pneumonia?continue vancomycin and Zosyn started in the emergency room. Oxygen as needed per protocol, albuterol breathing treatments as needed as well. 3. Debility secondary to thalamic stroke consult case finishing machine adjuster to assist with discharge planning 4. Lipidemia?continue home medications 5. Hypertension continue home medications 6. VT prophylaxis?low molecular weight heparin Code Visit Inpatient E&M: 31429 Init Hosp L3
[2019-06-01] MEDS: Potassium Chloride 10mEq/100mL 10 MEQ/100 ML IV.SOLN. 100 MEQ IV BOLUS ×3 (02:21→11:11)
[2019-06-01] MEDS: Morphine 2 MG/ML Syringe IV ×3 (02:24→18:47)
--- NOTE | 2019-06-01 03:46 | PCM.RX.CS ---
Consult Pharmacy has been consulted to manage selected antiobiotic: Vancomycin Type of Consult: New start Suspected Infection: Pneumonia Labs: Sodium 139 mmol/L (136-145) 05/31/19 23:35 Potassium 2.9 mmol/L (3.5-5.1) L 05/31/19 23:35 Chloride 99 mmol/L (98-107) 05/31/19 23:35 Carbon Dioxide 33.0 mmol/L (21.0-32.0) H 05/31/19 23:35 Anion Gap 7 (5-15) 05/31/19 23:35 BUN 11 mg/dL (7-18) 05/31/19 23:35 Creatinine 0.78 mg/dL (0.70-1.30) 05/31/19 23:35 Est GFR (MDRD) Af Amer 124 mL/min (>60) 05/31/19 23:35 Est GFR (MDRD) Non-Af 103 mL/min (>60) 05/31/19 23:35 BUN/Creatinine Ratio 14.2 RATIO (10-20) 05/31/19 23:35 Glucose 141 mg/dL (74-106) H 05/31/19 23:35 Weight used for dosin.5 kg Estimated Creatinine Clearance: 87.1 Goal Trough: 10-15 mcg/mL Pharmacy Plan for Drug Dosing: Pharmacy Service will continue to monitor and adjust dosing as required. Medications Vancomycin HCl (Vancomycin) 1,000 mg in 200 mls @ 200 mls/hr IV Q12H [facility] Discontinued Medications Vancomycin HCl 1,250 mg/ (Sodium Chloride) 275 mls @ 250 mls/hr IV X1 ONE Stop: 06/01/19 02:20 Last Admin: 06/01/19 02:22 Dose: 250 mls/hr Documented by: Follow-Up Labs: Trough Vancomycin Labs to be done on [date and time ordered]: 06/02 @ 0053
[2019-06-01] MEDS: 0.9% NaCl Peripheral Flush Adult/Peds IV ×2 (05:06→18:47)
[2019-06-01] MEDS: Metoprolol Tartrate 100 MG Tablet PO ×2 (05:12→21:47)
[2019-06-01 06:45] LABS: Absolute Lymphocyte Count 1.48 X10^3/uL (0.83-4.51); Absolute Neutrophil Count 8.7 X10^3/uL (2.0-7.7); Basophil# 0.07 X10^3/uL; Basophil% 0.6 % (0-1); Eosinophil# 0.04 X10^3/uL; Eosinophils% 0.4 % (0-5); Hematocrit 41.6 % (40-54); Hemoglobin 13.9 g/dL (13.0-16.5); Lymphocyte # 1.48 X10^3/ul (4.0); Lymphocyte % 13.2 % (19-41); Mean Corp Hgb Conc 33.4 g/dL (32-36); Mean Corpuscular Hgb 30.3 pg (27.0-32.0); Mean Corpuscular Volume 90.8 fL (80-94); Mean Platelet Vol. 9.2 fl (6.2-12.0); Monocyte# 0.64 X10^3/uL; Monocyte% 5.7 % (0-10); NRBC Flagged by Analyzer 0 % (0-5); Neutrophil # 8.74 X10^3/uL (2.7-7.7); Platelet Count 354 K/mm3 (150-450); RBC Distribution Width CV 13.3 % (11.6-14.6); RBC Distribution Width SD 44.6 fl (35.1-43.9); Red Blood Count 4.58 M/mm3 (4.6-6.2); White Blood Count 11.2 K/mm3 (4.4-11.0)
[2019-06-01 07:05] LABS: Anion Gap 6 (5-15); BUN 12 mg/dL (7-18); BUN/Creat Ratio 16.1 RATIO (10-20); Calcium,Total 8.2 mg/dL (8.5-10.1); Chloride 103 mmol/L (98-107); Creatinine, Serum 0.74 mg/dL (0.70-1.30); EST Glomerular Filtration Rate 108 mL/min (>60); Est Glom Filt Rate - Afr Amer 131 mL/min (>60); Estimated Creatinine Clearance 59.85 ml/min; Glucose 133 mg/dL (74-106); Potassium 3.2 mmol/L (3.5-5.1); Sodium Level 140 mmol/L (136-145)
[2019-06-01] MEDS: Metoprolol Tartrate 5 MG/5 ML Vial IV (07:47)
[2019-06-01 08:23] LABS: Magnesium 1.7 mg/dL (1.6-2.6)
[2019-06-01] MEDS: Lisinopril 20 MG Tablet PO (09:42)
--- NOTE | 2019-06-01 12:09 | CASEMGMT ---
BRENDA ABRAHAM assessment: Face to Face with patient for initial transition planning/care coordination assessment. BRENDA ABRAHAM introduced self and role at [facility], pt voices understanding and consents to assessment at this time. Pt is sitting up in bed in no distress at this time. Pt's answers all questions for pt at this time. Pt's states she takes total care of pt at home. Care providers, pharmacy, and demographics verified/updated. PCP: [facility] Specialists: Pt states currently has no specialists. Preferred Pharmacy: [facility] Insurance: [facility] A/B, AARP Prescription Benefit: None, pays out of pocket for all meds. states that pharmacy will get her discounts at times. Living Will/HPOA: Pt has a HPOA and it is on file at [facility] at this time. states that she is HPOA for pt. LNOK: Juany Zhou, ; Maximo Castañeda, son Living Arrangements: Pt and live in 1 story apt at son's home with 4 steps into apt and states no concerns at home at this time. Pt depends on for assist with all ADL's. Transportation: Pt's drives and states no transportation concerns at this time. DME/HHC: Pt has the following DME: walker, raised toilet seat, grab bars, and shower chair. states no need for any further DME at this time. Pt has had HHC in the past and states pt was recently at [place] and 'that's where he got this.' is willing to have HHC set up at discharge at this time. This BRENDA ABRAHAM provided her with a list of local HHC companies at this time. states no concerns with pt going home at time of discharge. Pt is retired. Pt does not smoke or drink ETOH. voices no further questions/concerns at this time. CM to follow for any further discharge planning/needs. Advised pt to ask for CM if any further question/sconcerns/needs arise, voices understanding. Pt Goal: Home w/ HHC Plan: Home w/ HHC [place] BRENDA ABRAHAM
[2019-06-01] MEDS: Albuterol 2.5 MG/3 ML VIAL.NEB. INHALATION ×2 (13:19→20:10)
[2019-06-01] MEDS: Vancomycin IV 1,000 MG/200 ML BAG 200 MG IV (13:57)
[2019-06-01] MEDS: Tamsulosin HCl 0.4 MG Capsule PO (13:57)
[2019-06-01 14:17] LABS: Vancomycin, Trough Level 9.5 ug/mL (5.0-15.0)
[2019-06-01] MEDS: Atorvastatin Calcium 40 MG Tablet PO (21:47)
[2019-06-02] VITALS (17 sets, daily range): BP systolic 132–159; BP diastolic 75–102; PULSE 72–190; RESP 16–38; TEMP 36.7–36.8; O2SAT 93–98
[2019-06-02] MEDS: Albuterol 2.5 MG/3 ML VIAL.NEB. INHALATION ×4 (01:20→18:45)
[2019-06-02] MEDS: Vancomycin IV 1,000 MG/200 ML BAG 200 MG IV ×2 (01:59→13:25)
[2019-06-02] MEDS: 0.9% NaCl Peripheral Flush Adult/Peds IV ×3 (02:02→18:36)
[2019-06-02] MEDS: Morphine 2 MG/ML Syringe IV (02:03)
[2019-06-02 06:03] LABS: Absolute Lymphocyte Count 1.65 X10^3/uL (0.83-4.51); Absolute Neutrophil Count 10.1 X10^3/uL (2.0-7.7); Basophil# 0.08 X10^3/uL; Basophil% 0.6 % (0-1); Eosinophil# 0.03 X10^3/uL; Eosinophils% 0.2 % (0-5); Hematocrit 41.8 % (40-54); Hemoglobin 13.5 g/dL (13.0-16.5); Lymphocyte # 1.65 X10^3/ul (4.0); Mean Corp Hgb Conc 32.3 g/dL (32-36); Mean Corpuscular Hgb 29.7 pg (27.0-32.0); Mean Corpuscular Volume 92.1 fL (80-94); Monocyte# 0.69 X10^3/uL; Monocyte% 5.4 % (0-10); NRBC Flagged by Analyzer 0 % (0-5); Neutrophil # 10.05 X10^3/uL (2.7-7.7); Platelet Count 292 K/mm3 (150-450); RBC Distribution Width CV 13.3 % (11.6-14.6); RBC Distribution Width SD 45.8 fl (35.1-43.9); Red Blood Count 4.54 M/mm3 (4.6-6.2); White Blood Count 12.7 K/mm3 (4.4-11.0)
[2019-06-02 06:28] LABS: Anion Gap 6 (5-15); BUN 12 mg/dL (7-18); BUN/Creat Ratio 15.4 RATIO (10-20); Calcium,Total 8.5 mg/dL (8.5-10.1); Chloride 103 mmol/L (98-107); Creatinine, Serum 0.78 mg/dL (0.70-1.30); EST Glomerular Filtration Rate 102 mL/min (>60); Est Glom Filt Rate - Afr Amer 124 mL/min (>60); Estimated Creatinine Clearance 59.85 ml/min; Glucose 141 mg/dL (74-106); Potassium 3.7 mmol/L (3.5-5.1); Sodium Level 139 mmol/L (136-145)
--- NOTE | 2019-06-02 07:22 | NURSING ---
Per conversation and verbal order from MD [place] wants borjas catheter taken out at this time. Balloon drained for 8cc. PT tolerated well. 200cc in bag. Pt denies any post removal discomfort. Patient to have PVR.
--- NOTE | 2019-06-02 07:34 | PCM.CONS.U ---
Reason for Consult Date of Consultation: 06/02/19 Reason for Consultation: Difficulty with urination and retention of urine. History of Present Illness: The patient is a 78 year old male from a correction is admitted for a pneumonia was also found to have some difficulty with going to the bathroom in the ER he urinated about 100 cc but then was bladder scanned for 150 cc and a Hargrove catheter was placed since then he has been started on Flomax which he think is very appropriate catheters draining clear urine with no blood. Patient denies having history of enlarged prostate or prostate cancer. Patient was receiving a breathing treatment to did not do a digital rectal exam currently. He is having more difficulty with breathing. Past Medical History Past Medical History (Chronic Problems): Chronic Problems (Last Reviewed 09/26/17 @ 10:17 by Zena Jimenez) History of abnormal breathing pattern (Chronic) Transient ischemic attack (Chronic) Cardiomyopathy (Chronic) EF 40-45% 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) BPH (benign prostatic hypertrophy) (Chronic) Edema (Chronic) Hyperlipidemia (Chronic) Aphasia (Chronic) Debility (Chronic) A-fib (Chronic) Hypertension (Chronic) Medical History: Medical History (Last Reviewed 09/26/17 @ 10:17 by Zena Jimenez) Transient ischemic attack (Chronic) Cardiomyopathy (Chronic) I42.9 EF 40-45% Gross hematuria (Resolved) UTI (urinary tract infection) (Resolved) N39.0 Choreiform movement (Chronic) R25.8 Thalamic hemorrhage with stroke (Chronic) I61.9 BPH (benign prostatic hypertrophy) (Chronic) N40.0 Edema (Chronic) R60.9 Hyperlipidemia (Chronic) E78.5 Aphasia (Chronic) R47.01 Debility (Chronic) R53.81 A-fib (Chronic) I48.91 Hypertension (Chronic) I10 Allergies donepezil [From Aricept] Adverse Reaction (Verified 06/01/19 03:25) Other increase stiffness could not move per levetiracetam [From Keppra] Adverse Reaction (Verified 06/01/19 03:25) Other Home Medications: Ambulatory Orders Medication Instructions Recorded Atorvastatin Calcium [Lipitor] 40 mg PO QHS #30 tab 07/23/17 Lisinopril [Zestril] 20 mg PO DAILY #30 tab 12/06/17 Aspirin [Aspir-Low] 81 mg PO DAILY 03/03/19 Furosemide [Lasix] 20 mg PO DAILY #30 tab 03/05/19 Metoprolol Tartrate [Lopressor 100 mg PO BID #60 tab 03/05/19 (beta leydi)] Surgical History: no surgical history Psychiatric History: No pertinent psych hx Lives: Spouse/ Significant Other Smoking Status: Never smoker Drugs: None - *Family History Maternal Family History: Family History (Last Reviewed 09/26/17 @ 10:17 by Zena Jimenez) Father Myocardial infarction History Items: No pertinent history Paternal Family History: Family History (Last Reviewed 09/26/17 @ 10:17 by Zena Jimenez) Father Myocardial infarction History Items: No pertinent history Review of Systems Constitutional: Denies: Chills, Fever, Weight Change HEENT: Denies: Head Aches, Sinus Congestion, Sinus Drainage Cardiovascular: Denies: Chest Pain, Palpitations Respiratory: Reports: Cough, Shortness of Breath. Denies: Shortness of breath at rest, Sputum production Gastrointestinal: Denies: Abdominal Pain, Nausea, Vomiting Genitourinary: Reports: Retention. Denies: Dysuria Musculoskeletal: Denies: Joint Pain, Joint Tenderness Skin: Denies: Rash, Wounds Neurological: Denies: Numbness, Tingling, Focal weakness Psychiatric: Denies: Anxiety, Depression, Homicidal Ideations, Suicidal Ideations Hematologic/ Lymphatic: Denies: Easy Bruising, Easy Bleeding Physical Exam - Physical Exam Vital Signs Temp 98.2 F 06/02/19 03:45 Pulse 102 H 06/02/19 03:45 Resp 18 06/02/19 03:45 BP 132/79 H 06/02/19 03:45 Pulse Ox 97 06/02/19 03:45 Intake & Output 05/31/19 06/01/19 06/02/19 23:59 23:59 23:59 Intake Total 1855 / 1855 350 / 350 Output Total 1825 / 2275 800 / 800 Balance 30 / -420 -450 / -450 Weight: 81.647 kg 91.5 kg Intake: Oral 880 / 880 100 / 100 Intake, IV Amount 975 / 975 250 / 250 Potassium Chloride 10mEq/100mL 100 / 100 10 MEQ/100 ML10 meq In 100 ml @ 100 mls/hr IV BOLUS NOW STA Rx #:[id number] Potassium Chloride 10mEq/100mL 200 / 200 10 MEQ/100 ML10 meq In 100 ml @ 100 mls/hr IV BOLUS Q1H [facility] Rx #:[id number] Vancomycin 1,000 mg In 200 ml @ 200 / 200 200 / 200 200 mls/hr IV Q12H [facility] Rx#: [id number] Vancomycin IV 1,000 MG/20 ML In 275 / 275 0.9% Normal Saline 250 ML @ 250 mls/hr IV X1 ONE Rx#: [id number] Zosyn 3.375 GM In 0.9% Normal 100 / 100 50 / 50 Saline 50 ML @ 12.5 mls/hr IV Q8 [facility] Rx#:[id number] Zosyn 4.5 GM In 0.9% Normal 100 / 100 Saline 100 ML @ 200 mls/hr IV X1 ONE Rx#:[id number] Output: Urine 1825 / 2275 800 / 800 Other: Number of Bowel Movements 1 General: Alert, Confused, Disoriented HEENT: Atraumatic Oral: Moist Mucosa Neck: Supple Lungs: Clear to auscultation Cardiovascular: Regular rate Laboratory Tests Past 24 Hrs 06/01/19 06/01/19 06/02/19 05:50 13:10 05:40 WBC 12.7 H RBC 4.54 L Hgb 13.5 Hct 41.8 MCV 92.1 MCH 29.7 MCHC 32.3 RDW Std Deviation 45.8 H RDW Coeff of Tal 13.3 Plt Count 292 MPV 10.0 Immature Gran % (Auto) 1.800 H Neut % (Auto) 79.0 H Lymph % (Auto) 13.0 L [place] % (Auto) 5.4 Eos % (Auto) 0.2 Baso % (Auto) 0.6 Absolute Neuts (auto) 10.1 H Absolute Lymphs (auto) 1.65 Nucleated RBC % 0 Sodium Potassium Chloride Carbon Dioxide Anion Gap BUN Creatinine Estim Creat Clear Calc Est GFR (MDRD) Af Amer Est GFR (MDRD) Non-Af BUN/Creatinine Ratio Glucose Calcium Magnesium 1.7 Vancomycin Trough 9.5 06/02/19 05:40 WBC RBC Hgb Hct MCV MCH MCHC RDW Std Deviation RDW Coeff of Tal Plt Count MPV Immature Gran % (Auto) Neut % (Auto) Lymph % (Auto) [place] % (Auto) Eos % (Auto) Baso % (Auto) Absolute Neuts (auto) Absolute Lymphs (auto) Nucleated RBC % Sodium 139 Potassium 3.7 Chloride 103 Carbon Dioxide 30.0 Anion Gap 6 BUN 12 Creatinine 0.78 Estim Creat Clear Calc 59.85 Est GFR (MDRD) Af Amer 124 Est GFR (MDRD) Non-Af 102 BUN/Creatinine Ratio 15.4 Glucose 141 H Calcium 8.5 Magnesium Vancomycin Trough Assessment/Plan All Active Problems (Last Reviewed 09/26/17 @ 10:17 by Zena Jimenez) Fever (Acute) HCAP (healthcare-associated pneumonia) (Acute) Sepsis due to pneumonia (Acute) Atrial fibrillation with RVR (Acute) Acute urinary retention (Acute) Failure of outpatient treatment (Acute) Shortness of breath (Acute) Gross hematuria (Resolved) UTI (urinary tract infection) (Resolved) Recommend remove the of the catheter and will do a voiding trial. Continue with Flomax 0.4 mg daily. If he is able to urinate successfully then check a postvoid residual of the residuals less than 200 cc I would not replace the catheter. Continue with Flomax and discharge call me with questions.
--- NOTE | 2019-06-02 08:18 | PCM.PROGNOTE ---
Patient Problems: Active and Suspected Problems (Last Updated 06/02/19 @ 08:19 by Amol Pink MD) HCAP (healthcare-associated pneumonia) (Acute) Atrial fibrillation with RVR (Acute) Acute urinary retention (Acute) Subjective: Chief complaint: Follow-up after admission for healthcare associated pneumonia, urinary retention, hematuria and A. fib with RVR. Patient seen and examined. No acute events overnight. Patient is a poor informant. According to his , he still having bladder spasms. Hargrove catheter was taken out this morning. He denies any worsening shortness of breath, still having cough with minimal sputum. Denied chest pain, palpitation, dizziness or lightheadedness. He has been afebrile, heart rate has been fluctuating, blood pressure stable, pulse ox is 97% on 3 L. - Physical Exam General: Alert, Oriented x3, Cooperative, - - Minimally short of breath. HEENT: Atraumatic, PERRLA, EOMI, Normocephalic Oral: Moist Mucosa, No Gingival or Mucosal Lesions/ Ulcerations Neck: Supple, No JVD, Negative Carotid Bruits, Trachea Midline, Thyroid Normal Size and Texture Lungs: Diminished, Rales, Rhonchi, - - Decreased breath sounds bilateral, coarse crackles in the right base, rhonchi. Cardiovascular: Normal S1, Normal S2, PMI Normal, Irregular Rate Abdomen: Bowel Sounds Present, Soft, Non Tender, Non-Distended, No Hepato-splenomegaly Extremities: No clubbing, No cyanosis, No edema Skin: No rashes, No breakdown Lymphatic: No Cervical, Supraclavicular, or Inguinal Adenopathy Neurological: Cranial nerves II-XII grossly intact, Motor Exam 5/5 strength throughout Psych/Mental Status: Normal Affect, Appropriate, Alert and oriented to time, place, person, mood and affect Vital Signs Temp Pulse Resp BP Pulse Ox 98.2 F 122 H 18 132/79 H 97 06/02/19 03:45 06/02/19 07:00 06/02/19 03:45 06/02/19 03:45 06/02/19 03:45 Oxygen Flow Rate (L/min) 3 Oxygen Delivery Method Nasal Cannula Weight: 201 lb 11.567 oz Body Mass Index (BMI) 30.7 Finger Stick Blood Glucose 140 Intake and Output for Last 24 Hours 10/06/01/19 06/02/19 23:59 23:59 23:59 Intake Total 1855 / 1855 350 / 350 Output Total 1825 / 2275 800 / 800 Balance 30 / -420 -450 / -450 Laboratory Tests Past 24 Hrs 06/01/19 06/01/19 06/02/19 05:50 13:10 05:40 WBC 12.7 H RBC 4.54 L Hgb 13.5 Hct 41.8 MCV 92.1 MCH 29.7 MCHC 32.3 RDW Std Deviation 45.8 H RDW Coeff of Tal 13.3 Plt Count 292 MPV 10.0 Immature Gran % (Auto) 1.800 H Neut % (Auto) 79.0 H Lymph % (Auto) 13.0 L [place] % (Auto) 5.4 Eos % (Auto) 0.2 Baso % (Auto) 0.6 Absolute Neuts (auto) 10.1 H Absolute Lymphs (auto) 1.65 Nucleated RBC % 0 Sodium Potassium Chloride Carbon Dioxide Anion Gap BUN Creatinine Estim Creat Clear Calc Est GFR (MDRD) Af Amer Est GFR (MDRD) Non-Af BUN/Creatinine Ratio Glucose Calcium Magnesium 1.7 Vancomycin Trough 9.5 06/02/19 05:40 WBC RBC Hgb Hct MCV MCH MCHC RDW Std Deviation RDW Coeff of Tal Plt Count MPV Immature Gran % (Auto) Neut % (Auto) Lymph % (Auto) [place] % (Auto) Eos % (Auto) Baso % (Auto) Absolute Neuts (auto) Absolute Lymphs (auto) Nucleated RBC % Sodium 139 Potassium 3.7 Chloride 103 Carbon Dioxide 30.0 Anion Gap 6 BUN 12 Creatinine 0.78 Estim Creat Clear Calc 59.85 Est GFR (MDRD) Af Amer 124 Est GFR (MDRD) Non-Af 102 BUN/Creatinine Ratio 15.4 Glucose 141 H Calcium 8.5 Magnesium Vancomycin Trough Clinical Impression(s) from Imaging Studies Chest X-Ray 05/31/19 23:08 IMPRESSION: Bilateral basilar infiltrates. Electronically Signed: Elio Mayo DO at 23:27 EDT Tel [phone], Service support , Medical Necessity - Tobacco Use Smoking Status: Never smoker Assessment/Plan All Active Problems (Last Updated 06/02/19 @ 08:19 by Amol Pink MD) HCAP (healthcare-associated pneumonia) (Acute) Atrial fibrillation with RVR (Acute) Acute urinary retention (Acute) This is a 78 years old male patient presented to the emergency room because of urinary retention and cough and he was found to have healthcare associated pneumonia, acute urinary tension contributed to probable prostatic hyperplasia and he developed hematuria after urine catheter inserted. #1 Healthcare associated pneumonia: Patient is on IV Zosyn and vancomycin. Chest x-ray reviewed, revealed bilateral basilar infiltrate more on the right base. He has been afebrile, white blood cell count is trending up. Other routine blood work was unremarkable. Heart rate and blood pressure stable. Blood and urine cultures are pending. Plan to continue same treatment, ambulate, encourage incentive spirometer, repeat CBC tomorrow morning. #2 acute urinary retention/hematuria: Status post removal of the urine catheter this morning that was recommended by urology. Urine has been clearing up. Hemoglobin and hematocrit are stable. Patient was started on Flomax. Appreciate neurology recommendations. #3 A. fib with RVR: In context of history of chronic atrial fibrillation. Patient was in A. fib with RVR, heart rate improved. He is on home dose of metoprolol. He is not on anticoagulation. #4 hypertension: Blood pressure stable, continue lisinopril, metoprolol and Lasix. #5 benign prostatic hypertrophy: Status post removal of the Hargrove catheter, continue Flomax. #6 history of CVA: Stable, continue statins, resume aspirin when hematuria clears up. #7 dilated cardiomyopathy: Ejection fraction was 40 to 45% on June,. At this time, stable, compensated. Continue aspirin, beta-blockers and ERIC inhibitors. #8 DVT prophylaxis: SCDs. This note was generated with [employer] dictation software. It may contain incorrect words, spelling, and punctuation that were not noted in checking the note before signing. Code Visit Inpatient E&M: 19182 Subs Hosp L2
[2019-06-02] MEDS: Furosemide 20 MG/2 ML VIAL IV (08:59)
[2019-06-02] MEDS: Metoprolol Tartrate 100 MG Tablet PO ×2 (09:00→21:40)
[2019-06-02] MEDS: Lisinopril 20 MG Tablet PO (09:01)
--- NOTE | 2019-06-02 10:27 | NURSING ---
Bladder scanned patient for 29 cc PVR
[2019-06-02 14:39] LABS: Magnesium 1.9 mg/dL (1.6-2.6)
--- NOTE | 2019-06-02 15:42 | PCM.RX.CS ---
Consult Pharmacy has been consulted to manage selected antiobiotic: Vancomycin Type of Consult: Follow-up Suspected Infection: Pneumonia Prior Doses of Antibiotics Received/Current Regimen: Vancomycin 1000mg IV 06/02 @ 0159 and 06/01 @ 4357 Labs: Sodium 139 mmol/L (136-145) 06/02/19 05:40 Potassium 3.7 mmol/L (3.5-5.1) 06/02/19 05:40 Chloride 103 mmol/L (98-107) 06/02/19 05:40 Carbon Dioxide 30.0 mmol/L (21.0-32.0) 06/02/19 05:40 Anion Gap 6 (5-15) 06/02/19 05:40 BUN 12 mg/dL (7-18) 06/02/19 05:40 Creatinine 0.78 mg/dL (0.70-1.30) 06/02/19 05:40 Est GFR (MDRD) Af Amer 124 mL/min (>60) 06/02/19 05:40 Est GFR (MDRD) Non-Af 102 mL/min (>60) 06/02/19 05:40 BUN/Creatinine Ratio 15.4 RATIO (10-20) 06/02/19 05:40 Glucose 141 mg/dL (74-106) H 06/02/19 05:40 Vancomycin Trough 9.5 ug/mL (5.0-15.0) 06/01/19 13:10 Microbiology: Microbiology 06/01/19 00:20 Urine Catheter - Catheter Urine Culture - Preliminary Culture exhibits no growth. Goal Trough: 10-15 mcg/mL Pharmacy Plan for Drug Dosin. Vancomycin trough subtherapeutic at 9.5 mg/dL, 11 hour trough 2. 1000 mg 1300 dose already hung 3. Will increase vancomycin to 1500mg IV Q12H starting 06/03 @ 0100 and order trough before 4th dose of new regimen Pharmacy Service will continue to monitor and adjust dosing as required. Labs to be done on [date and time ordered]: 06/04/19 @ 1233
[2019-06-02] MEDS: Tamsulosin HCl 0.4 MG Capsule PO (17:12)
[2019-06-02] MEDS: Metoprolol Tartrate 5 MG/5 ML Vial IV (18:35)
[2019-06-02] MEDS: Atorvastatin Calcium 40 MG Tablet PO (21:40)
[2019-06-03] VITALS (16 sets, daily range): BP systolic 127–138; BP diastolic 52–74; PULSE 68–127; RESP 18–26; TEMP 36.6–36.9; O2SAT 94–98
[2019-06-03] MEDS: Albuterol 2.5 MG/3 ML VIAL.NEB. INHALATION ×4 (00:32→19:30)
[2019-06-03 06:45] LABS: Absolute Lymphocyte Count 1.53 X10^3/uL (0.83-4.51); Basophil# 0.08 X10^3/uL; Basophil% 0.9 % (0-1); Eosinophils% 1.1 % (0-5); Hematocrit 41.2 % (40-54); Hemoglobin 13.5 g/dL (13.0-16.5); Lymphocyte # 1.53 X10^3/ul (4.0); Lymphocyte % 16.4 % (19-41); Mean Corp Hgb Conc 32.8 g/dL (32-36); Mean Corpuscular Hgb 30.3 pg (27.0-32.0); Mean Corpuscular Volume 92.4 fL (80-94); Mean Platelet Vol. 9.6 fl (6.2-12.0); Monocyte# 0.43 X10^3/uL; Monocyte% 4.6 % (0-10); NRBC Flagged by Analyzer 0 % (0-5); Neutrophil # 7.03 X10^3/uL (2.7-7.7); Neutrophil % 75.2 % (47-70); Platelet Count 277 K/mm3 (150-450); RBC Distribution Width CV 13.4 % (11.6-14.6); RBC Distribution Width SD 45.9 fl (35.1-43.9); Red Blood Count 4.46 M/mm3 (4.6-6.2); White Blood Count 9.3 K/mm3 (4.4-11.0)
[2019-06-03 07:01] LABS: Anion Gap 8 (5-15); BUN 15 mg/dL (7-18); BUN/Creat Ratio 18.2 RATIO (10-20); Calcium,Total 8.3 mg/dL (8.5-10.1); Chloride 106 mmol/L (98-107); Creatinine, Serum 0.83 mg/dL (0.70-1.30); EST Glomerular Filtration Rate 96 mL/min (>60); Est Glom Filt Rate - Afr Amer 116 mL/min (>60); Estimated Creatinine Clearance 72.11 ml/min; Glucose 150 mg/dL (74-106); Potassium 3.4 mmol/L (3.5-5.1); Sodium Level 140 mmol/L (136-145)
--- NOTE | 2019-06-03 07:21 | RAD_ITS ---
STUDY: X-RAY CHEST REASON FOR EXAM: Male, 78 years old. Shortness of breath/dyspnea. TECHNIQUE: Single AP portable view of the chest. COMPARISON: Comparison is made with prior examination dated May 31, 2019. FINDINGS: EKG electrodes are seen. Since prior study, there has been improved aeration of both lung bases. Residual atelectasis and/or infiltrates persist worse at the left lung base. Blunting of both costophrenic angles. There is mild cardiac enlargement. Normal mediastinum and vikas. Normal visualized pulmonary arteries. There is atherosclerotic tortuosity of the aortic arch and descending thoracic aorta. There are diffuse degenerative changes of the visualized thoracic spine. There is degenerative osteoarthritis of the bilateral shoulders. There is no demonstrated abnormality of the visualized soft tissue structures of the upper abdomen. RAD/Chest 1 View (Portable) IMPRESSION: Improved aeration at both lung bases although residual atelectasis and/or infiltrates persist worse at the left lung base. Electronically Signed: Valentino Pitts, at 12:57 EDT , Service support ,
--- NOTE | 2019-06-03 08:07 | PCM.PROGNOTE ---
Patient Problems: Active and Suspected Problems (Last Updated 06/02/19 @ 08:19 by Amol Pink MD) HCAP (healthcare-associated pneumonia) (Acute) Atrial fibrillation with RVR (Acute) Acute urinary retention (Acute) Subjective: Chief complaint: Follow-up after admission for healthcare associated pneumonia, urinary retention, hematuria and A. fib with RVR. Patient seen and examined. No acute events overnight. He denies any worsening shortness of breath, still having some cough. Denied chest pain or palpitation. Denied abdominal pain, nausea vomiting. He has been able to urinate, having less bladder spasm. He is afebrile, heart rate has been fluctuating from 90s to 110s, blood pressure stable, pulse ox is 97% on 3 L. Chest x-ray done, reviewed and official report is pending. - Physical Exam General: Alert, Oriented x3, Cooperative, - - Minimally short of breath. HEENT: Atraumatic, PERRLA, EOMI, Normocephalic Oral: Moist Mucosa, No Gingival or Mucosal Lesions/ Ulcerations Neck: Supple, No JVD, Negative Carotid Bruits, Trachea Midline, Thyroid Normal Size and Texture Lungs: No wheeze, Diminished, Rhonchi, Short of Breath, - - Decreased breath sounds bilateral, coarse crackles on the right base with bronchial breathing. Cardiovascular: Normal S1, Normal S2, PMI Normal, Irregular Rate Abdomen: Bowel Sounds Present, Soft, Non Tender, Non-Distended, No Hepato-splenomegaly Extremities: No clubbing, No cyanosis, No edema Skin: No rashes, No breakdown Lymphatic: No Cervical, Supraclavicular, or Inguinal Adenopathy Neurological: Cranial nerves II-XII grossly intact, Neuro grossly intact Psych/Mental Status: Normal Affect, Appropriate Vital Signs Temp Pulse Resp BP Pulse Ox 98.1 F 105 H 18 134/73 H 97 06/03/19 03:00 06/03/19 07:00 06/03/19 03:00 06/03/19 03:00 06/03/19 03:00 Oxygen Flow Rate (L/min) 3 Oxygen Delivery Method Nasal Cannula Weight: 201 lb 11.567 oz Body Mass Index (BMI) 30.7 Finger Stick Blood Glucose 140 Intake and Output for Last 24 Hours 06/01/19 06/02/19 06/03/19 23:59 23:59 23:59 Intake Total 1855 / 1855 2110 / 2110 700 / 700 Output Total 1825 / 2275 1100 / 1100 50 / 50 Balance 30 / -420 1010 / 1010 650 / 650 Microbiology Past 72 Hours 05/31/19 23:30 Blood Culture - Preliminary Blood Culture (Wb) - Left Hand No growth in 48 hours. 05/31/19 23:35 Blood Culture - Preliminary Blood Culture (Wb) - Anticubital Right No growth in 48 hours. 06/01/19 00:20 Urine Culture - Preliminary Urine Catheter - Catheter Culture exhibits no growth. Laboratory Tests Past 24 Hrs 06/02/19 06/03/19 06/03/19 05:40 05:20 05:20 WBC 9.3 RBC 4.46 L Hgb 13.5 Hct 41.2 MCV 92.4 MCH 30.3 MCHC 32.8 RDW Std Deviation 45.9 H RDW Coeff of Tal 13.4 Plt Count 277 MPV 9.6 Immature Gran % (Auto) 1.800 H Neut % (Auto) 75.2 H Lymph % (Auto) 16.4 L [place] % (Auto) 4.6 Eos % (Auto) 1.1 Baso % (Auto) 0.9 Absolute Neuts (auto) 7.0 Absolute Lymphs (auto) 1.53 Nucleated RBC % 0 Sodium 140 Potassium 3.4 L Chloride 106 Carbon Dioxide 26.0 Anion Gap 8 BUN 15 Creatinine 0.83 Estim Creat Clear Calc 72.11 Est GFR (MDRD) Af Amer 116 Est GFR (MDRD) Non-Af 96 BUN/Creatinine Ratio 18.2 Glucose 150 H Calcium 8.3 L Magnesium 1.9 Medical Necessity - Tobacco Use Smoking Status: Never smoker Assessment/Plan All Active Problems (Last Updated 06/02/19 @ 08:19 by Amol Pink MD) HCAP (healthcare-associated pneumonia) (Acute) Atrial fibrillation with RVR (Acute) Acute urinary retention (Acute) This is a 78 years old male patient presented to the emergency room because of urinary retention and cough and he was found to have healthcare associated pneumonia, acute urinary tension contributed to probable prostatic hyperplasia and he developed hematuria after urine catheter inserted. #1 Healthcare associated pneumonia: Remained on IV Zosyn and vancomycin. He has been afebrile, leukocytosis resolved. His oxygen requirement has been increasing. Repeat chest is reviewed, probable volume overload. Blood and urine cultures were negative, no growth. Plan: Ambulate, encourage incentive spirometer, will give 1 dose of IV Lasix, continue other treatments. #2 acute urinary retention/hematuria: Status post removal of the urine catheter, patient has been able to urinate, no more hematuria. He is on Flomax. #3 A. fib with RVR: In context of history of chronic atrial fibrillation. Heart rate goes up with ambulation, sustained at around 100. He is on metoprolol as well as IV metoprolol. Plan to monitor, he is not on anticoagulation. #4 hypertension: Blood pressure stable, continue lisinopril, metoprolol and Lasix. #5 benign prostatic hypertrophy: Status post removal of the Hargrove catheter, continue Flomax. #6 history of CVA: Stable, continue statins, resume aspirin. #7 dilated cardiomyopathy: Ejection fraction was 40 to 45% on June,. Chest x-ray revealed probable vascular congestion, volume overload, mild. Continue aspirin, beta-blockers and ERIC inhibitors. Will give 1 dose of IV Lasix. #8 DVT prophylaxis: SCDs. This note was generated with [employer] dictation software. It may contain incorrect words, spelling, and punctuation that were not noted in checking the note before signing. Code Visit Inpatient E&M: 22986 Subs Hosp L2
[2019-06-03] MEDS: Furosemide 40 MG/4 ML Vial IV (10:22)
[2019-06-03] MEDS: Metoprolol Tartrate 100 MG Tablet PO ×2 (10:22→22:26)
[2019-06-03] MEDS: 0.9% NaCl Peripheral Flush Adult/Peds IV ×2 (10:22→10:56)
[2019-06-03] MEDS: Lisinopril 20 MG Tablet PO (10:22)
[2019-06-03] MEDS: Phenazopyridine 95 MG Tablet PO ×2 (14:21→23:16)
[2019-06-03] MEDS: Furosemide 20 MG Tablet PO (14:21)
[2019-06-03] MEDS: Finasteride 5 MG Tablet PO (14:21)
--- NOTE | 2019-06-03 14:59 | CASEMGMT ---
This RN CM to room to discuss discharge plan with /pt at this time and states that it's too soon to make any decisions at this time. states she did review the list of [facility] providers but did not make a choice yet. This RN CM to follow and advised that will check back tomorrow, voices understanding. SStaten RN CM
[2019-06-03] MEDS: Tamsulosin HCl 0.4 MG Capsule PO (17:31)
[2019-06-03] MEDS: Metoprolol Tartrate 5 MG/5 ML Vial IV (17:44)
[2019-06-03] MEDS: dilTIAZem 30 MG Tablet PO ×2 (18:44→23:16)
[2019-06-03] MEDS: Atorvastatin Calcium 40 MG Tablet PO (22:26)
[2019-06-04] VITALS (18 sets, daily range): BP systolic 120–134; BP diastolic 64–79; PULSE 58–104; RESP 16–26; TEMP 36.4–36.7; O2SAT 92–97
[2019-06-04] MEDS: Albuterol 2.5 MG/3 ML VIAL.NEB. INHALATION ×4 (01:27→18:46)
[2019-06-04] MEDS: dilTIAZem 30 MG Tablet PO ×4 (05:23→23:20)
--- NOTE | 2019-06-04 08:22 | PCM.PROGNOTE ---
Patient Problems: Active and Suspected Problems (Last Updated 06/02/19 @ 08:19 by Amol Pink MD) HCAP (healthcare-associated pneumonia) (Acute) Atrial fibrillation with RVR (Acute) Acute urinary retention (Acute) Subjective: Chief complaint: Follow-up after admission for healthcare associated pneumonia, urinary retention, hematuria and A. fib with RVR. Patient seen and examined. No acute events overnight. Patient feels better, no specific complaints. He denied worsening shortness of breath. He admits that his urinating easier, spasm is less. Denied abdominal pain. Denies fever or chills. He is still on oxygen up to 3 L, other vitals are stable. - Physical Exam General: Alert, Oriented x3, Cooperative, No apparent distress HEENT: Atraumatic, PERRLA, EOMI, Normocephalic Oral: Moist Mucosa, No Gingival or Mucosal Lesions/ Ulcerations Neck: Supple, No JVD, Negative Carotid Bruits, Trachea Midline, Thyroid Normal Size and Texture Lungs: Clear to auscultation, No wheeze, Diminished, Rhonchi, - - Decreased breath sounds at the bases, coarse crackle in the right base. Cardiovascular: Normal S1, Normal S2, PMI Normal, Irregular Rate Abdomen: Bowel Sounds Present, Soft, Non Tender, Non-Distended, No Hepato-splenomegaly Extremities: No clubbing, No cyanosis, No edema Skin: No rashes, No breakdown Lymphatic: No Cervical, Supraclavicular, or Inguinal Adenopathy Neurological: Cranial nerves II-XII grossly intact, Neuro grossly intact Psych/Mental Status: Normal Affect, Appropriate Vital Signs Temp Pulse Resp BP Pulse Ox 98.1 F 90 20 H 120/64 95 06/04/19 03:00 06/04/19 07:29 06/04/19 06:41 06/04/19 03:00 06/04/19 06:41 Oxygen Flow Rate (L/min) 2 Oxygen Delivery Method Nasal Cannula Weight: 201 lb 11.567 oz Body Mass Index (BMI) 30.7 Finger Stick Blood Glucose 140 Intake and Output for Last 24 Hours 06/02/19 06/03/19 06/04/19 23:59 23:59 23:59 Intake Total 2110 / 2110 2430 / 2430 700 / 700 Output Total 1100 / 1100 50 / 50 Balance 1010 / 1010 2380 / 2380 700 / 700 Microbiology Past 72 Hours 06/01/19 00:20 Urine Culture - Final Urine Catheter - Catheter Culture exhibits no growth. 05/31/19 23:30 Blood Culture - Preliminary Blood Culture (Wb) - Left Hand No growth in 48 hours. 05/31/19 23:35 Blood Culture - Preliminary Blood Culture (Wb) - Anticubital Right No growth in 48 hours. Medical Necessity - Tobacco Use Smoking Status: Never smoker Assessment/Plan All Active Problems (Last Updated 06/02/19 @ 08:19 by Amol Pink MD) HCAP (healthcare-associated pneumonia) (Acute) Atrial fibrillation with RVR (Acute) Acute urinary retention (Acute) This is a 78 years old male patient presented to the emergency room because of urinary retention and cough and he was found to have healthcare associated pneumonia, acute urinary tension contributed to probable prostatic hyperplasia and he developed hematuria after urine catheter inserted. #1 Healthcare associated pneumonia: He is on day 4 of IV Zosyn and vancomycin. He has been afebrile, leukocytosis resolved. Remains on oxygen at 3 L and he has been receiving IV Lasix intermittently. Blood and urine cultures were negative, no growth. Plan: Continue same treatment. #2 acute urinary retention/hematuria: Status post removal of the urine catheter, patient has been able to urinate, no more hematuria. He is on Flomax and Proscar as well as Pyridium. Patient has been urinating, getting easier.. #3 A. fib with RVR: In context of history of chronic atrial fibrillation. Started on p.o. Cardizem last night, on metoprolol. Heart rate improved, more stable. He is not on anticoagulation. #4 hypoxia: Patient has been requiring oxygen up to 3 L. Chest x-ray done again yesterday, reviewed. Probable volume overload. Patient has been getting intermittent IV Lasix. Plan to give another dose of IV Lasix today, wean off oxygen, ambulate. #5 hypertension: Blood pressure stable, continue lisinopril, metoprolol and Lasix. #6 benign prostatic hypertrophy: Status post removal of the Hargrove catheter, continue Flomax. #7 history of CVA: Stable, continue statins, resume aspirin. #8 dilated cardiomyopathy: With probable acute on chronic systolic ejection fraction was 40 to 45% on June,. Patient has been on oral Lasix, aspirin, beta-blockers and ERIC inhibitors. He has been getting intermittent IV Lasix, will give 1 dose of IV Lasix this morning. #9 DVT prophylaxis: SCDs. This note was generated with [employer] dictation software. It may contain incorrect words, spelling, and punctuation that were not noted in checking the note before signing. Code Visit Inpatient E&M: 11655 Subs Hosp L2
[2019-06-04] MEDS: Furosemide 40 MG/4 ML Vial IV (09:17)
[2019-06-04] MEDS: 0.9% NaCl Peripheral Flush Adult/Peds IV (09:18)
[2019-06-04] MEDS: Metoprolol Tartrate 100 MG Tablet PO ×2 (09:20→21:39)
[2019-06-04] MEDS: Aspirin 81 MG TAB.CHEW PO (09:21)
[2019-06-04] MEDS: Lisinopril 20 MG Tablet PO (09:22)
[2019-06-04] MEDS: Finasteride 5 MG Tablet PO (09:22)
--- NOTE | 2019-06-04 11:26 | CASEMGMT ---
This BRENDA ABRAHAM to room discuss HHC preference at this time and pt's states that she no longer is interested in HHC at this time for pt at discharge. states 'I take care of everything he needs anyway.' Pt is still on 2 liters of home oxygen at this time and they are attempting to wean him off but provided with list of DME companies at this time just in case pt may need oxygen at discharge. Freddie GUTIERREZ CM to check back with later about preference for home oxygen company so that green sheet can be left on chart. Katie GUTIERREZ CM
[2019-06-04 13:16] LABS: Vancomycin, Trough Level 27.2 ug/mL (5.0-15.0)
--- NOTE | 2019-06-04 13:29 | CASEMGMT ---
BRENDA ABRAHAM NOTE: To room to talk with pt and . Introduced self and role of BRENDA ABRAHAM. and pt looked over DME list and chose [facility] as preferred company if pt would need oxygen @ D/C. Noted pt does not have any chronic respiratory diagnosis, and therefore, oxygen will not be covered by insurance. Call placed to [facility] and spoke w/Sandra. Confirmed with Sandra that chronic diagnoses of Abnormal breathing pattern and Cardiomyopathy are not qualifying diagnoses for insurance to cover oxygen. Per Sandra, cost for concentrator and portable oxygen tanks [id number] for a month is $158.71. Pt and made aware and are agreeable to paying this amount if pt would need oxygen @ discharge. Pt will need Home oxygen qualification testing completed prior to discharge. Green sheet placed on chart with instructions for setting up Home oxygen if pt qualifies. Treasure FUNESN BRENDA ABRAHAM
[2019-06-04] MEDS: Tamsulosin HCl 0.4 MG Capsule PO (17:02)
--- NOTE | 2019-06-04 19:16 | NURSING ---
IV Vanco completion time unknown. Stop time incorrect on infusion record.
[2019-06-04] MEDS: Atorvastatin Calcium 40 MG Tablet PO (21:39)
[2019-06-04] MEDS: Phenazopyridine 95 MG Tablet PO (21:39)
--- NOTE | 2019-06-04 22:10 | PHA.PHARE_ITS ---
Consult Pharmacy has been consulted to manage selected antiobiotic: Vancomycin Type of Consult: Follow-up Suspected Infection: Pneumonia Prior Doses of Antibiotics Received/Current Regimen: Medications Vancomycin HCl 1,500 mg/ (Sodium Chloride) 530 mls @ 250 mls/hr IV Q12H GRAHAM Last Admin: 06/04/19 19:05 Dose: Infused Labs: Sodium 140 mmol/L (136-145) 06/03/19 05:20 Potassium 3.4 mmol/L (3.5-5.1) L 06/03/19 05:20 Chloride 106 mmol/L (98-107) 06/03/19 05:20 Carbon Dioxide 26.0 mmol/L (21.0-32.0) 06/03/19 05:20 Anion Gap 8 (5-15) 06/03/19 05:20 BUN 15 mg/dL (7-18) 06/03/19 05:20 Creatinine 0.83 mg/dL (0.70-1.30) 06/03/19 05:20 Est GFR (MDRD) Af Amer 116 mL/min (>60) 06/03/19 05:20 Est GFR (MDRD) Non-Af 96 mL/min (>60) 06/03/19 05:20 BUN/Creatinine Ratio 18.2 RATIO (10-20) 06/03/19 05:20 Glucose 150 mg/dL (74-106) H 06/03/19 05:20 Vancomycin Trough 27.2 ug/mL (5.0-15.0) H 06/04/19 12:27 Microbiology: Microbiology 06/01/19 00:20 Urine Catheter - Catheter Urine Culture - Final Culture exhibits no growth. 05/31/19 23:30 Blood Culture (Wb) - Left Hand Blood Culture - Preliminary No growth in 48 hours. 05/31/19 23:35 Blood Culture (Wb) - Anticubital Right Blood Culture - Pr eliminary No growth in 48 hours. Weight used for dosin.5 kg Estimated Creatinine Clearance: 72 Goal Trough: 10-15 mcg/mL Pharmacy Plan for Drug Dosing: Vancomycin trough level drawn 06/04/19 @1227 was high at 27.2. Current dosing regimen was discontinued until another trough can be drawn, although the 06/04 1434 dose had already been hung prior to stopping. The next trough will be drawn 06/05/18 @1230, and further dosing will be calculated from those results. Pharmacy Service will continue to monitor and adjust dosing as required. Follow-Up Labs: Trough Vancomycin Labs to be done on [date and time ordered]: 06/05/18 @1230
[2019-06-05] VITALS (9 sets, daily range): BP systolic 123–141; BP diastolic 60–92; PULSE 73–92; RESP 16–20; TEMP 36.8–37; O2SAT 91–94
[2019-06-05] MEDS: Albuterol 2.5 MG/3 ML VIAL.NEB. INHALATION ×2 (01:08→07:05)
[2019-06-05] MEDS: dilTIAZem 30 MG Tablet PO ×2 (05:32→12:08)
[2019-06-05] MEDS: Phenazopyridine 95 MG Tablet PO (09:03)
[2019-06-05] MEDS: Furosemide 20 MG Tablet PO (09:21)
[2019-06-05] MEDS: Aspirin 81 MG TAB.CHEW PO (09:25)
[2019-06-05] MEDS: Lisinopril 20 MG Tablet PO (09:30)
[2019-06-05] MEDS: Metoprolol Tartrate 100 MG Tablet PO (09:30)
[2019-06-05] MEDS: Finasteride 5 MG Tablet PO (09:31)
--- NOTE | 2019-06-05 10:35 | DCINST_ITS ---
- Discharge Diagnoses Current Active Problems: Current Active and Chronic Problems (Last Updated 06/02/19 @ 08:19 by Amol Pink MD) HCAP (healthcare-associated pneumonia) (Acute) Atrial fibrillation with RVR (Acute) Acute urinary retention (Acute) You will use the following diet at home:: Cardiac Your food should be the consistency of: Regular Discharge Activity: Return to Normal Activity Weight Bearing Status: Weight bearing as tolerated Call your doctor if you observe: Fever of 101 or Higher, Shortness of breath, Dizziness, Fainting spells, Chest pain, Increased palpitations (irregular heartbeat), Uncontrolled pain Instructions: Diltiazem Maleate Oral tablet, extended-release, Benign Prostatic Hyperplasia Allergies/Adverse Reactions: Allergies donepezil [From Aricept] Adverse Reaction (Verified 06/01/19 03:25) Other increase stiffness could not move per levetiracetam [From Keppra] Adverse Reaction (Verified 06/01/19 03:25) Other Medications to take at Discharge Atorvastatin Calcium [Lipitor] 40 mg PO QHS #30 tab 07/23/17 Lisinopril [Zestril] 20 mg PO DAILY #30 tab 07/23/17 Aspirin [Aspir-Low] 81 mg PO DAILY 03/03/19 Furosemide [Lasix] 20 mg PO DAILY #30 tab 03/05/19 Metoprolol Tartrate [Lopressor (beta leydi)] 100 mg PO BID #60 tab 03/05/19 Diltiazem CD [Cardizem CD] 120 mg PO DAILY #30 cap 06/05/19 Finasteride [Proscar] 5 mg PO DAILY #90 tab 06/05/19 Phenazopyridine [Pyridium] 100 mg PO BID #10 tab 06/05/19 Tamsulosin HCl [Flomax] 0.4 mg PO DAILY@1730 #90 cap 06/05/19 levoFLOXacin tablet [Levaquin tablet] 750 mg PO DAILY #5 tab 06/05/19 The following prescriptions were given: Diltiazem CD [Cardizem CD] 120 mg PO DAILY #30 cap Transmission Status: Pending to [id number] Tamsulosin HCl [Flomax] 0.4 mg PO DAILY@1730 #90 cap Transmission Status: Pending to [id number] levoFLOXacin tablet [Levaquin tablet] 750 mg PO DAILY #5 tab Transmission Status: Pending to [facility] Finasteride [Proscar] 5 mg PO DAILY #90 tab Transmission Status: Pending to [facility] Phenazopyridine [Pyridium] 100 mg PO BID #10 tab Transmission Status: Pending to [facility] Primary Care Physician: Parmjit Grajeda MD [Primary Care Provider] - Please follow up with your Primary Care Physician in: 1 week. Test Results: Test results from this visit will be discussed in further detail at your follow- up appointment, if applicable. Please Follow Up With: Parmjit Grajeda MD
--- NOTE | 2019-06-05 11:57 | PCM.DC.SUM ---
Discharge Date and Diagnosis Date of Admission: 06/01/19 Date of Discharge: 06/05/19 - Primary Discharge Diagnosis Active and Suspected Problems (Last Updated 06/02/19 @ 08:19 by Amol Pink MD) #1 Healthcare associated pneumonia. #2 A. fib with RVR. #3 acute urinary retention/hematuria. #4 hypoxia, secondary to pneumonia, resolved. 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 Electronically Signed: Elio Mayo DO at 23:27 EDT Tel [phone], Service support , Chest X-Ray 06/03/19 07:21 IMPRESSION: Improved aeration at both lung bases although residual atelectasis and/or infiltrates persist worse at the left lung base. Electronically Signed: Valentino Pitts, at 12:57 EDT , Service support , Operations: None Procedures: EKG Summary of Care Provided: Patient seen and examined on the day of discharge and appeared to be stable to be discharged home. He was able to come off oxygen and pulse ox maintained on room air. He has been able to urinate, spasm is getting better every day. His vital signs are stable, afebrile. This is a 78 years old male patient presented to the emergency room because of urinary retention and cough and he was found to have healthcare associated pneumonia, acute urinary tension contributed to probable prostatic hyperplasia and he developed hematuria after urine catheter inserted. #1 Healthcare associated pneumonia: Treated with IV Zosyn and vancomycin. He remained afebrile, leukocytosis resolved. Initially, he required up to 3 L of oxygen and then he was able to come off oxygen and remained on room air. Blood and urine cultures were negative, no growth. Patient discharged home on Levaquin 750 mg p.o. daily for 5 days to complete total of 10 days of treatment. #2 acute urinary retention/hematuria: Initially, Hargrove catheter inserted patient was started on Flomax and Proscar as well as Pyridium for bladder spasm. Urology consulted, recommended to remove the Hargrove catheter which was taken off and patient was able to urinate. Patient discharged home on Proscar and Flomax as well as Pyridium. #3 A. fib with RVR: In context of history of chronic atrial fibrillation. Treated with IV as needed metoprolol as well as p.o. Cardizem every 6 hours, was continued on oral metoprolol. Heart rate stabilized with oral metoprolol as well as Cardizem. Patient was discharged on Cardizem CD 120 mg p.o. daily and metoprolol 100 mg p.o. twice daily which is his previous home dose. #4 hypoxia: Secondary to anemia, patient required up to 3 L of oxygen. With treatment, patient he was able to come off oxygen and pulse ox was maintained on room air upon discharge. #5 hypertension: Blood pressure has been stable, continued on lisinopril, metoprolol and Lasix. #6 benign prostatic hypertrophy: Prescription given for Flomax, Proscar and Pyridium. #7 history of CVA: Stable, continue statins, continued on aspirin. Patient discharged home in a stable medical condition, discharged on Levaquin for 5 days to complete total of 10 days of treatment for pneumonia, discharged on Proscar and Flomax as well as Pyridium for urinary retention and benign prostatic hypertrophy, started on Cardizem CD 120 mg p.o. daily in addition to previous metoprolol for rate control for A. fib, recommended follow-up with PCP in 1 week. This note was generated with GLO dictation software. It may contain incorrect words, spelling, and punctuation that were not noted in checking the note before signing. - Physical Exam General: Alert, Oriented x3, Cooperative, No apparent distress HEENT: Atraumatic, PERRLA, EOMI, Normocephalic Oral: Moist Mucosa, No Gingival or Mucosal Lesions/ Ulcerations Neck: Supple, No JVD, Negative Carotid Bruits, Trachea Midline, Thyroid Normal Size and Texture Lungs: No rhonchi, No wheeze, Diminished, Rales, - - Decreased breath sounds at bases, crackles in the right base Cardiovascular: Normal S1, Normal S2, No murmurs, PMI Normal, Irregular Rate Abdomen: Bowel Sounds Present, Soft, Non Tender, Non-Distended, No Hepato-splenomegaly Extremities: No clubbing, No cyanosis, No edema Skin: No rashes, No breakdown Lymphatic: No Cervical, Supraclavicular, or Inguinal Adenopathy Neurological: Cranial nerves II-XII grossly intact, Neuro grossly intact Psych/Mental Status: Normal Affect, Appropriate Vital Signs Temp Pulse Resp BP Pulse Ox 98.6 F 83 20 H 136/85 H 94 06/05/19 09:00 06/05/19 09:30 06/05/19 09:00 06/05/19 09:00 06/05/19 09:10 Oxygen Flow Rate (L/min) 3 Oxygen Delivery Method Room Air Weight: 201 lb 11.567 oz Body Mass Index (BMI) 30.7 Finger Stick Blood Glucose 140 Intake and Output for Last 24 Hours 06/03/19 06/04/19 06/05/19 23:59 23:59 23:59 Intake Total 2430 / 2430 2250 / 2250 220 / 220 Output Total 50 / 50 Balance 2380 / 2380 2250 / 2250 220 / 220 Microbiology Past 72 Hours 06/01/19 00:20 Urine Culture - Final Urine Catheter - Catheter Culture exhibits no growth. 05/31/19 23:30 Blood Culture - Preliminary Blood Culture (Wb) - Left Hand No growth in 48 hours. 05/31/19 23:35 Blood Culture - Preliminary Blood Culture (Wb) - Anticubital Right No growth in 48 hours. Laboratory Tests Past 24 Hrs 06/04/19 12:27 Vancomycin Trough 27.2 H Discharge Activity: Return to Normal Activity Weight Bearing Status: Weight bearing as tolerated Call your doctor if you observe: Fever of 101 or Higher, Shortness of breath, Dizziness, Fainting spells, Chest pain, Increased palpitations (irregular heartbeat), Uncontrolled pain Home Medications: Medications to take at Discharge Atorvastatin Calcium [Lipitor] 40 mg PO QHS #30 tab 07/23/17 Lisinopril [Zestril] 20 mg PO DAILY #30 tab 12/06/17 Aspirin [Aspir-Low] 81 mg PO DAILY 03/03/19 Furosemide [Lasix] 20 mg PO DAILY #30 tab 03/05/19 Metoprolol Tartrate [Lopressor (beta leydi)] 100 mg PO BID #60 tab 03/05/19 Diltiazem CD [Cardizem CD] 120 mg PO DAILY #30 cap 06/05/19 Finasteride [Proscar] 5 mg PO DAILY #90 tab 06/05/19 Phenazopyridine [Pyridium] 100 mg PO BID #10 tab 06/05/19 Tamsulosin HCl [Flomax] 0.4 mg PO DAILY@1730 #90 cap 06/05/19 levoFLOXacin tablet [Levaquin tablet] 750 mg PO DAILY #5 tab 06/05/19 Following Prescrptions Were Given to Patient: Diltiazem CD [Cardizem CD] 120 mg PO DAILY #30 cap Transmission Status: Received by [facility] Tamsulosin HCl [Flomax] 0.4 mg PO DAILY@1730 #90 cap Transmission Status: Received by [facility] levoFLOXacin tablet [Levaquin tablet] 750 mg PO DAILY #5 tab Transmission Status: Received by [facility] Finasteride [Proscar] 5 mg PO DAILY #90 tab Transmission Status: [facility] Phenazopyridine [Pyridium] 100 mg PO BID #10 tab Transmission Status: Received by [facility] Primary Care Physician: Parmjit Grajeda MD [Primary Care Provider] - Please follow up with your Primary Care Physician in: 1 week. Please Follow Up With: Parmjit Grajeda MD Patient Instructions: Diltiazem Maleate Oral tablet, extended-release, Benign Prostatic Hyperplasia Disposition: Home Minutes spent on discharge:: 33 Patient Condition:: Stable Medical Necessity - Tobacco Use Smoking Status: Never smoker Meaningful Use Info Meaningful Use Diagnoses (Choose all that apply): None applicable Code Visit Inpatient E&M: 21227 Disch Hosp
--- NOTE | 2019-06-07 14:16 | CASEMGMT ---
RN LEIGH DC PHONE CALL DC DATE: 06/05/19 DC Disposition: Home Diagnosis on Discharge: Pneumonia LACE/STRATA: 13/4 Intro role of CM to patient via phone. Pt did not have questions re: medications, f/u or instructions. States he has prescriptions and f/u appointment was made with Dr. Grajeda already. No care improvement suggestions given. Kevin FUNESN RN ACM
== END 2019-06-05 13:34 | disposition home or self-care (01) | DRG 194 ==
LOC: ED 06-01 01:11 → PCU 06-01 01:34
PROVIDERS: Family Medicine; Admitting Provider Family Medicine; Emergency Provider Emergency Medicine; Family Provider Family Medicine; PCP Family Medicine; Visit Provider Hospitalist
DX: J18.9 Pneumonia, unspecified organism (principal); I48.20 Chronic atrial fibrillation, unspecified; I42.0 Dilated cardiomyopathy; Y95 Nosocomial condition; N40.1 Benign prostatic hyperplasia with lower urinary tract symptoms; R33.8 Other retention of urine; I10 Essential (primary) hypertension; R09.02 Hypoxemia; R31.9 Hematuria, unspecified; Z86.73 Personal history of transient ischemic attack (TIA), and cerebral infarction without residual deficits; E87.6 Hypokalemia
CPT/HCPCS: 36415; 51702; 71045; 80048; 80053; 80202; 81001; 83605; 83735; 85025; 85610; 85730; 87040; 87086; 93005; 94640; 94667; 94668; 97162; 97166; 97530; 97802; 99285; J7030; J7040; J7050; A4216; J1940

== ENCOUNTER 2020-03-30 19:14 | Inpatient (IN) | payer MEDICARE, OTHER, SELFPAY ==
[2019-06-01 03:23] VITALS: BMI 30.7
[2020-03-30 19:16] VITALS: BP 160/119; PULSE 70; RESP 28; TEMP 39.2; O2SAT 92; BMI 35.0
--- NOTE | 2020-03-30 20:01 | EKG12_ITS ---
Test Reason : FEVER Blood Pressure : / mmHG Vent. Rate : 117 BPM Atrial Rate : 131 BPM P-R Int : 000 ms QRS Dur : 084 ms QT Int : 300 ms P-R-T Axes : 000 032 098 degrees QTc Int : 418 ms Atrial fibrillation with rapid ventricular response with premature ventricular or aberrantly conducte d complexes Nonspecific ST and T wave abnormality Abnormal ECG Confirmed by DYLAN NATARAJAN ([id number]), digital editor ILSA BOCANEGRA ([id number]) on 04/03/2020 2:06:31 PM Referred By: ROYAL Confirmed By:DYLAN NATARAJAN
--- NOTE | 2020-03-30 20:53 | RAD_ITS ---
STUDY: X-RAY CHEST REASON FOR EXAM: Male, 79 years old. FEVER SINCE YESTERDAY TECHNIQUE: Single AP portable view of the chest. COMPARISON: June 03 2019 FINDINGS: The lungs are clear and expanded. There is no demonstrated pleural abnormality. Normal size heart. Stable visualized mediastinal and osseous structures. RAD/Chest 1 View (Portable) IMPRESSION: No acute process Electronically Signed: Marcelo Chirinos MD at 21:42 EDT , Service support ,
--- NOTE | 2020-03-30 20:56 | ED.DCSUM_ITS ---
History of Present Illness Chief Complaint: Fever Informant: Patient, Family Narrative: Patient is a 79-year-old male with a history of strokes who presents to the emergency department for fever. This started yesterday. The temperature has been up to 103 that they treated at home with Tylenol yesterday. He has had a mild cough over the past week. It is occasionally productive of sputum. He does have a history of pneumonia in the past. He also has a history of urinary tract infections. He states he has not left the home in over 5 months. No known coronavirus exposures. He does have some mild shortness of breath occasionally. No chest pain. No abdominal pain. No nausea/vomiting or diarrhea. No urinary symptoms. No rashes. No headache or neck stiffness. Past Medical History - Allergies and Home Meds Allergies/Adverse Reactions: Allergies donepezil [From Aricept] Adverse Reaction (Verified 06/01/19 03:25) Other increase stiffness could not move per levetiracetam [From Keppra] Adverse Reaction (Verified 06/01/19 03:25) Other Prior records reviewed: Yes Past Medical History: - - Cardiomyopathy, hypertension, strokes, atrial fibrillation Surgical History: no surgical history Smoking Status: Never smoker - Family History Maternal Family History: Family History (Last Reviewed 09/26/17 @ 10:17 by Zena Jimenez) Father Myocardial infarction Family History: Reports: No pertinent history Paternal Family History: Family History (Last Reviewed 09/26/17 @ 10:17 by Zena Jimenez) Father Myocardial infarction Family History: Reports: No pertinent history Review of Systems General: Reports: Chills, Fever. Denies: Sweats Eyes: Denies: Visual changes - bilaterally, Diplopia ENT: Denies: Rhinorrhea, Sore throat Cardiovascular: Denies: Chest pain, Palpitations Respiratory: Reports: Dyspnea, Cough, Sputum. Denies: Dyspnea on exertion Gastrointestinal: Denies: Abdominal pain, Nausea, Vomiting, Diarrhea, Melena, Hematochezia Genitourinary: Denies: Dysuria, Hematuria, Frequency Musculoskeletal: Denies: Back pain, Extremity Pain Skin: Denies: Rash, Wounds Neurological: Denies: Headache, Weakness, Numbness Physical Exam Vital Signs/Narrative: Vital Signs Temp Pulse Resp BP Pulse Ox 03/30/20 19:16 102.6 F H 70 28 H 160/119 H 92 Inital Vital Signs reviewed: Yes General: Well nourished, Well developed, No Acute Distress Head: Normocephalic, Atraumatic Eyes: Perrl, EOMI ENT: Moist mucous membranes, No rhinorrhea Neck: Supple, Nontender Cardiovascular: Regular rate, Regular rhythm, No murmurs Respiratory: No distress, CTA bilaterally - Mild tachypnea, Chest nontender, -. Negative for: Retractions Abdomen: Soft, Nontender, Nondistended, Normal bowel sounds Back: Nontender, Normal Inspection Extremities: Nontender, No edema Skin: Normal color, No rash Neurological: Alert, Oriented x3, Cranial nerves II-XII grossly intact, Normal Strength, Normal Sensation Psychological: Normal affect, Normal Mood Diagnostic/Tx/Re-eval - EKG Initial EKG Interpretation: - - Atrial fibrillation with ventricular rate of 117 bpm. There are PVCs present. No significant ST elevations or depressions. No T wave acute abnormalities. - Medical Decision Making Patient presents to the emerge department for fever and cough. Upon arrival to the emerge department he does have a temperature. Mildly tachypneic. Satting well on room air. Not appear in any acute distress. Nontoxic-appearing. Basic lab work, blood cultures lactic acid being performed along with coronavirus screen. Chest x-ray currently pending. X-ray did not show any evidence of consolidation. There was some vasculature overlying itself that is seen in the right lung. This was seen on previous x- ray. Lab work did not reveal any significant acute abnormality. No urinary tract infection. We did try to ambulate the patient which she was able to get up and walk but was unstable. Did develop a rash while here. It is blanching. Erythematous. Looks like macules spread over the lower extremities and abdomen. No petechiae or skin sloughing. No oral mucosal involvement. Will bring to the hospital for further evaluation and management. Will need rehab services. Coronavirus test is negative. Was all discussed with the family. They understand and are agreeable with this plan. ED Disposition - Plan for ED Patient: Disposition: Acute Care [facility] Diagnosis: Fever of unknown origin, Viral exanthem, unspecified, Ambulatory dysfunction
[2020-03-30 21:00] VITALS: BP 141/85; PULSE 106; RESP 22; TEMP 37.1; O2SAT 96
[2020-03-30 21:01] VITALS: BP 150/86; PULSE 72; RESP 22; O2SAT 94
[2020-03-30] MEDS: Acetaminophen 325 MG Tablet 650 MG PO (21:04)
[2020-03-30 21:07] LABS: Absolute Lymphocyte Count 0.56 X10^3/uL (0.83-4.51); Absolute Neutrophil Count 8.1 X10^3/uL (2.0-7.7); Basophil# 0.04 X10^3/uL; Basophil% 0.4 % (0-1); Eosinophil# 0.01 X10^3/uL; Eosinophils% 0.1 % (0-5); Hematocrit 44.8 % (40-54); Hemoglobin 14.8 g/dL (13.0-16.5); Lymphocyte # 0.56 X10^3/ul (4.0); Mean Corpuscular Hgb 29.8 pg (27.0-32.0); Mean Corpuscular Volume 90.3 fL (80-94); Mean Platelet Vol. 8.7 fl (6.2-12.0); Monocyte# 0.54 X10^3/uL; Monocyte% 5.8 % (0-10); NRBC Flagged by Analyzer 0 % (0-5); Neutrophil # 8.13 X10^3/uL (2.7-7.7); Neutrophil % 87.1 % (47-70); POSITIVE DIFFERENTIAL YES; Platelet Count 225 K/mm3 (150-450); RBC Distribution Width CV 13.6 % (11.6-14.6); RBC Distribution Width SD 45.2 fl (35.1-43.9); Red Blood Count 4.96 M/mm3 (4.6-6.2); White Blood Count 9.3 K/mm3 (4.4-11.0)
[2020-03-30 21:09] LABS: Differential Indicated SCAN CRITERIA MET
[2020-03-30 21:17] LABS: ALB/GLOB Ratio 0.7 RATIO (0.9-2.4); AST(SGOT) 17 U/L (15-37); Alanine Aminotransfer ALT/SGPT 21 U/L (16-61); Albumin, Serum 2.8 g/dL (3.2-5.0); Alkaline Phosphatase 54 U/L (45-117); Anion Gap 7 (5-15); BUN 19 mg/dL (7-18); BUN/Creat Ratio 18.4 RATIO (10-20); Calcium,Total 8.9 mg/dL (8.5-10.1); Chloride 103 mmol/L (98-107); Creatinine, Serum 1.03 mg/dL (0.70-1.30); EST Glomerular Filtration Rate 74 mL/min (>60); Est Glom Filt Rate - Afr Amer 90 mL/min (>60); Estimated Creatinine Clearance 59.11 ml/min; Globulin 4.3 g/dL (2.2-4.2); Glucose 155 mg/dL (74-106); Potassium 3.4 mmol/L (3.5-5.1); Protein, Total 7.1 g/dL (6.4-8.2); Sodium Level 136 mmol/L (136-145)
[2020-03-30 21:27] LABS: Probe Check PASS; Specimen Processing Control PASS
[2020-03-30 21:33] LABS: Bacteria 0 SEEN /hpf (None Seen); Mucous, Urine 0 SEEN /hpf (<or=2+)
[2020-03-30 21:37] LABS: Lactic Acid 1.6 mmol/L (0.4-1.9)
[2020-03-30 21:40] LABS: Anisocytosis RARE; Platelet Estimate ADEQUATE (ADEQ); Red Cell Morphology N CHROM NORMAL (NORM C&C)
[2020-03-30 21:47] LABS: Color, Urine Yellow (Yellow); Glucose, Dipstick Normal (Normal); Ketone-Dipstick Negative (Negative); Leukocyte Esterase-Dipstick 25 /ul (Negative); Nitrite-Dipstick Negative (Negative); Occult Blood-Urine 25 /ul (Negative); Protein-Dipstick 30 mg/dl (Negative); Urine Bilirubin Dipstick Negative (Negative); Urine Clarity Sl. Cloudy (Clear); Urine Urobilinogen Normal (Normal)
[2020-03-30 21:58] LABS: Red Blood Cells-Urine 0-5 SEEN /hpf (0-5); Squamous Epithelial Cells - UA 0-5 SEEN /hpf (0-5); White Blood Cells 0-5 SEEN /hpf (0-5)
[2020-03-30 22:00] VITALS: BP 102/70; PULSE 98; RESP 19; TEMP 37.1; O2SAT 95
[2020-03-30 22:34] VITALS: BP 111/95; PULSE 94; RESP 20; TEMP 36.2; O2SAT 96
--- NOTE | 2020-03-30 22:52 | PCM.HP.STD ---
Problem List (1) Fever of unknown origin Status: Acute (2) Viral exanthem, unspecified Status: Acute (3) Thalamic hemorrhage with stroke Status: Chronic (4) BPH (benign prostatic hypertrophy) Status: Chronic Qualifiers: Lower urinary tract symptom presence: unspecified whether lower urinary tract symptoms present Qualified Code(s): N40.0 - Benign prostatic hyperplasia without lower urinary tract symptoms (5) Hyperlipidemia Status: Chronic Qualifiers: Hyperlipidemia type: mixed hyperlipidemia Qualified Code(s): E78.2 - Mixed hyperlipidemia; E78.2 - Mixed hyperlipidemia; E78.2 - Mixed hyperlipidemia (6) Aphasia Status: Chronic (7) A-fib Status: Chronic Qualifiers: Atrial fibrillation type: unspecified chronic (8) Hypertension Status: Chronic Qualifiers: Hypertension type: essential hypertension Qualified Code(s): I10 - Essential (primary) hypertension; I10 - Essential (primary) hypertension; I10 - Essential (primary) hypertension History of Present Illness Date of Admission: 03/30/20 Chief Complaint: Fever The patient is a 79 y/o M w/ PMHx: Obesity, BPH, Chronic AF, Hx thalamic hemorrhagic stroke with chronic aphasia, HTN, HLD, Cardiomyopathy 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 He did have onset diffuse exanthem suspicious for viral exanthem. Patient does state he does have allergic rhinitis and seasonal allergies. He denies having any pruritus with the rash. Work-up in the ED included T upon initial arrival 102.6, heart rate 106, BP 160/119, respiratory rate 28, 92% on room air with most recent repeat vitals T 97.2, heart rate 94, BP 111/95, respiratory rate 20, 96% on room air, CBC with WBC 9.3, hemoglobin 14.8, platelet 225 with left shift with concurrent lymphopenia, CMP with potassium 3.4, BUN/creatinine 19/1.03, glucose 155, lactic acid 1.6, troponin less than 0.015, unremarkable hepatic profile, urinalysis with specific IV elevation 1.020, protein 30, occult blood 25, negative nitrite, total leukocyte esterase 25, unremarkable urine bacteria and WBC, negative COVID testing, culture x2 pending per ED, urine culture pending per ED, chest x-ray with no acute cardiopulmonary findings, EKG with atrial fibrillation, rate controlled in the ED with no acute evidence of ischemia. In the ED patient ministered Tylenol 650 mg p.o. x1. Past Medical History Past Medical History (Chronic Problems): Chronic Problems (Last Updated 06/02/19 @ 08:[address] Amol Pink MD) History of abnormal breathing pattern (Chronic) Transient ischemic attack (Chronic) Cardiomyopathy (Chronic) EF 40-45% 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) BPH (benign prostatic hypertrophy) (Chronic) Hyperlipidemia (Chronic) Aphasia (Chronic) Debility (Chronic) A-fib (Chronic) Hypertension (Chronic) Medical History: Medical History (Last Updated 06/02/19 @ 08:[address] Amol Pink MD) Transient ischemic attack (Chronic) Cardiomyopathy (Chronic) I42.9 EF 40-45% Choreiform movement (Chronic) R25.8 Thalamic hemorrhage with stroke (Chronic) I61.9 BPH (benign prostatic hypertrophy) (Chronic) N40.0 Hyperlipidemia (Chronic) E78.5 Aphasia (Chronic) R47.01 Debility (Chronic) R53.81 A-fib (Chronic) I48.91 Hypertension (Chronic) I10 Allergies donepezil [From Aricept] Adverse Reaction (Verified 06/01/19 03:25) Other increase stiffness could not move per levetiracetam [From Keppra] Adverse Reaction (Verified 06/01/19 03:25) Other Home Medications: Ambulatory Orders Medication Instructions Recorded Aspirin [Aspir-Low] 81 mg PO DAILY 03/03/19 Atorvastatin Calcium [Lipitor] 40 mg PO QHS 03/30/20 Diltiazem CD [Cardizem CD] 120 mg PO DAILY 03/30/20 Finasteride [Proscar] 5 mg PO DAILY 03/30/20 Furosemide [Lasix] 20 mg PO DAILY 03/30/20 Lisinopril [Zestril] 20 mg PO DAILY 03/30/20 Metoprolol Tartrate [Lopressor 100 mg PO BID 03/30/20 (beta leydi)] Tamsulosin HCl [Flomax] 0.4 mg PO DAILY@1730 03/30/20 Surgical History: cataract - Bilateral cataract surgery. Psychiatric History: No pertinent psych hx Lives: Spouse/ Significant Other Smoking Status: Never smoker Tobacco Use: Non-smoker Alcohol: None Drugs: None - *Family History Maternal Family History: Family History (Last Reviewed 09/26/17 @ 10:17 by Zena Jimenez) Father Myocardial infarction History Items: Stroke Paternal Family History: Family History (Last Reviewed 09/26/17 @ 10:17 by Zena Jimenez) Father Myocardial infarction History Items: Heart Disease, Stroke Review of Systems Constitutional: Reports: Fever, Malaise, Weakness, Fatigue. Denies: Anorexia, Chills, Weight Change HEENT: Reports: Nasal Congestion, Post Nasal Drip, Sinus Drainage. Denies: Head Aches, Sinus Congestion Cardiovascular: Denies: Chest Pain, Chest Pressure, Chest Tightness, Light Headedness, Orthopnea, Palpitations, Syncope Respiratory: Reports: Cough, Shortness of Breath, Sputum production - Mildly productive.. Denies: Shortness of breath at rest, Shortness of breath upon exertion Gastrointestinal: Denies: Abdominal Pain, Nausea, Vomiting Genitourinary: Denies: Dysuria Musculoskeletal: Reports: Joint Pain. Denies: Joint Tenderness Skin: Denies: Rash, Wounds Neurological: Reports: Focal weakness. Denies: Numbness, Tingling Psychiatric: Denies: Anxiety, Depression, Homicidal Ideations, Suicidal Ideations Hematologic/ Lymphatic: Reports: Easy Bruising. Denies: Easy Bleeding VTE Information - Inpt Only VTE Present on Admission: No VTE Mechan Device Prophylaxis: SCD's VTE Pharm Prophylaxis ordered?: Yes Patient Problems: Active and Suspected Problems (Last Updated 06/02/19 @ 08:[address] Amol Pink MD) Fever of unknown origin (Acute) Viral exanthem, unspecified (Acute) Ambulatory dysfunction (Acute) Subjective: Seated upright in the ED bed, no acute distress, afebrile now following Tylenol administration, no evidence of any respiratory distress, comfortable appearing. Objective: Physical Examination: General: awake, alert, oriented to self, place, recent events, remains cooperative, seated upright in the ED bed in no apparent distress. Skin: normal color, turgor, no icterus, cyanosis except noted diffuse extremity and thorax rash, not blanching, nonpruritic, flat. HEENT: AT/NC, EOMI, PERRLA, mildly dry MM, no carotid bruits or JVD noted. Lungs: CTA bilaterally, moderate effort, mild decrease BL bases, no rales, ronchi or wheezing. Heart: Irregular, rate controlled; no gallop, rub audible. Abdomen: soft, obese, NTTP, ND, normal BS, no HSM. Extremities: no cyanosis, clubbing, or edema, see skin. Neurological: patient awake, alert, oriented as noted; cognitive function baseline intact; pupils equally reactive to light and accomodation; cranial nerves II-XII grossly normal, moving all 4 extremities except deficits from prior CVA, strength moderately to severely globally Kylah secondary to acute presentation and underlying comorbidities. Psychiatric: affect appears mildly fatigued otherwise normal, no acute evidence of depressive or anxiety feelings. - Physical Exam Vitals/I&O's: Vital Signs Temp Pulse Resp BP Pulse Ox 97.2 F L 94 20 H 111/95 H 96 03/30/20 22:34 03/30/20 22:34 03/30/20 22:34 03/30/20 22:34 03/30/20 22:34 Oxygen Delivery Method Room Air Weight: 237 lb 7.005 oz Body Mass Index (BMI) 35.0 Finger Stick Blood Glucose 140 Laboratory Results 03/30/20 20:10: COVID-19 (SAMMY) Negative 03/30/20 20:48: WBC 9.3, RBC 4.96, Hgb 14.8, Hct 44.8, MCV 90.3, MCH 29.8, MCHC 33.0, RDW Std Deviation 45.2 H, RDW Coeff of Tal 13.6, Plt Count 225, MPV 8.7, Immature Gran % (Auto) 0.600, Neut % (Auto) 87.1 H, Lymph % (Auto) 6.0 L, [place] % (Auto) 5.8, Eos % (Auto) 0.1, Baso % (Auto) 0.4, Absolute Neuts (auto) 8.1 H, Absolute Lymphs (auto) 0.56 L, Nucleated RBC % 0, Differential Comment SEE COMMENT, Platelet Estimate ADEQUATE, RBC Morphology N CHROM, Anisocytosis RARE 08/13/20 20:48: Sodium 136, Potassium 3.4 L, Chloride 103, Carbon Dioxide 26.0, Anion Gap 7, BUN 19 H, Creatinine 1.03, Estim Creat Clear Calc 59.11, Est GFR (MDRD) Af Amer 90, Est GFR (MDRD) Non-Af 74, BUN/Creatinine Ratio 18.4, Glucose 155 H, Calcium 8.9, Total Bilirubin 0.80, AST 17, ALT 21, Alkaline Phosphatase 54, Troponin I < 0.015, Total Protein 7.1, Albumin 2.8 L, Globulin 4.3 H, Albumin/Globulin Ratio 0.7 L 03/30/20 20:48: Lactic Acid 1.6 03/30/20 21:15: Urine Color Yellow, Urine Clarity Sl. Cloudy, Urine pH 5.0, Ur Specific [place] 1.020, Urine Protein 30 H, Urine Glucose (UA) Normal, Urine Ketones Negative, Urine Occult Blood 25 H, Urine Nitrite Negative, Urine Bilirubin Negative, Urine Urobilinogen Normal, Ur Leukocyte Esterase 25 H, Urine RBC 0-5 SEEN, Urine WBC 0-5 SEEN, Ur Squamous Epith Cells 0-5 SEEN, Urine Bacteria 0 SEEN, Urine Mucus 0 SEEN Assessment/Plan All Active Problems (Last Updated 06/02/19 @ 08:[address] Amol Pink MD) Fever of unknown origin (Acute) Viral exanthem, unspecified (Acute) Ambulatory dysfunction (Acute) HCAP (healthcare-associated pneumonia) (Acute) Atrial fibrillation with RVR (Acute) Acute urinary retention (Acute) The patient is a 79 y/o M w/ PMHx: Obesity, BPH, Chronic AF, Hx thalamic hemorrhagic stroke with chronic aphasia, HTN, HLD, Cardiomyopathy unclear type (EF 40-45%) who presents to the [facility] ED on 03/30/20 with history of onset fever up to 103 at home with mild cough over the past week with associated nasal drip but no specific headache or sinus pressure with concurrent very mild dyspnea, worse with activity with occasional productive sputum with no recent ill exposures not COVID contacts with noted onset over the last 24 hours diffuse body rash. 1. SIRS, Unclear Etiology, Possible Acute Viral Syndrome with Viral exanthem, COVID testing negative: Given debility and weakness with underlying deficits already secondary to prior stroke will admit to medical surgical floor, maintain on fall and aspiration precautions, will obtain urine culture although urinalysis not marked appearing, will judiciously hydrate and plan repeat chest x-ray in a.m. to assure no blossoming pneumonia, monitor rash, will obtain urine antigens, PT/OT/case management consultations for discharge planning, procalcitonin requested. 2. Hypertension: Continue home regimen including Lasix, lisinopril, metoprolol with hold parameters, PRN hydralazine. 3. Hyperlipidemia: Continue home statin regimen. 4. Chronic AF: EKG with atrial fibrillation, will continue patient home aspirin and Cardizem regimen. 5. History CVA: Patient with history of thalamic hemorrhagic stroke with chronic aphasia and abilities, will continue aspirin, statin, hypertensive regimen. 6. Cardiomyopathy, unclear type: 7. Obesity: Weight loss and lifestyle changes encouraged. 8. BPH: We will continue patient home Flomax regimen. 9. DVT prophylaxis: SCDs, Lovenox. 10. CODE status: Patient HCPOA is his and living will is currently in place. Discussed CODE status at length including difference between FULL code, DNR-CCA and DNR-CC status. Following discussions about the differences in these status, requested DNR CCA, no intubation status. Advanced Care Planning Face to Face Time: 16 minutes. OBSV E&M: 30469 Initial observation care L3 Procedures: 46128 Advncd Care Plan 30 Min
[2020-03-30 23:13] VITALS: BP 121/76; PULSE 100; RESP 18; TEMP 36.2; O2SAT 95
--- NOTE | 2020-03-30 23:30 | ED.RN ---
called and updated on admission and room assignment
[2020-03-30 23:46] VITALS: BMI 34.2
[2020-03-30 23:58] VITALS: BMI 34.2
[2020-03-31] VITALS (12 sets, daily range): BP systolic 114–146; BP diastolic 60–81; PULSE 62–108; RESP 16–26; TEMP 36.8–39.6; O2SAT 93–97
[2020-03-31 00:09] LABS: Magnesium 1.8 mg/dL (1.6-2.6)
[2020-03-31] MEDS: 0.9% Saline Lock 10 ML Syringe IV (00:24)
[2020-03-31] MEDS: guaiFENesin 600 MG Tablet PO ×3 (00:24→21:56)
[2020-03-31] MEDS: 0.9% Normal Saline 1,000 ML 100 ML IV ×3 (00:24→20:05)
[2020-03-31] MEDS: Metoprolol Tartrate 100 MG Tablet PO ×3 (00:25→21:56)
[2020-03-31] MEDS: MELATONIN 3 MG TABLET PO (00:25)
[2020-03-31 01:58] LABS: Procalcitonin 0.14 ng/mL (0.00-0.09)
[2020-03-31] MEDS: Menthol/Lanolin/Calamine/Znox 113 GM Tube 1 APPLIC TOPICAL ×2 (02:39→05:17)
[2020-03-31] MEDS: Nystatin Powder 15gm Bottle 1 APPLIC TOPICAL ×4 (02:40→21:56)
[2020-03-31] MEDS: Acetaminophen 325 MG Tablet 650 MG PO ×2 (05:30→14:18)
[2020-03-31 05:54] LABS: Absolute Lymphocyte Count 0.91 X10^3/uL (0.83-4.51); Absolute Neutrophil Count 5.7 X10^3/uL (2.0-7.7); Basophil# 0.04 X10^3/uL; Basophil% 0.5 % (0-1); Eosinophil# 0.13 X10^3/uL; Eosinophils% 1.7 % (0-5); Hematocrit 41.4 % (40-54); Hemoglobin 13.5 g/dL (13.0-16.5); Lymphocyte # 0.91 X10^3/ul (4.0); Lymphocyte % 12.2 % (19-41); Mean Corp Hgb Conc 32.6 g/dL (32-36); Mean Corpuscular Hgb 29.9 pg (27.0-32.0); Mean Corpuscular Volume 91.6 fL (80-94); Monocyte# 0.56 X10^3/uL; Monocyte% 7.5 % (0-10); NRBC Flagged by Analyzer 0 % (0-5); Neutrophil # 5.73 X10^3/uL (2.7-7.7); Neutrophil % 77.3 % (47-70); Platelet Count 205 K/mm3 (150-450); RBC Distribution Width CV 13.7 % (11.6-14.6); RBC Distribution Width SD 46.8 fl (35.1-43.9); Red Blood Count 4.52 M/mm3 (4.6-6.2); White Blood Count 7.4 K/mm3 (4.4-11.0)
--- NOTE | 2020-03-31 06:15 | RAD_ITS ---
STUDY: X-RAY CHEST REASON FOR EXAM: Male, 79 years old. DYSPNEA AND COUGH TECHNIQUE: Single AP portable view of the chest. COMPARISON: Comparison is made with prior study dated 03/30/2020. FINDINGS: The lungs are clear and expanded. There is no demonstrated pleural abnormality. There is moderate cardiac enlargement. Normal mediastinum and vikas. Normal visualized pulmonary arteries. There is atherosclerotic tortuosity of the aortic arch and descending thoracic aorta. Normal visualized thoracic spine. Normal visualized ribs, clavicles, and shoulders. There is no demonstrated abnormality of the visualized soft tissue structures of the upper abdomen. RAD/Chest 1 View (Portable) IMPRESSION: Cardiomegaly. Electronically Signed: Valentino Pitts, at 10:47 EDT , Service support ,
[2020-03-31 06:25] LABS: ALB/GLOB Ratio 0.6 RATIO (0.9-2.4); AST(SGOT) 15 U/L (15-37); Alanine Aminotransfer ALT/SGPT 22 U/L (16-61); Albumin, Serum 2.5 g/dL (3.2-5.0); Alkaline Phosphatase 51 U/L (45-117); Anion Gap 7 (5-15); BUN 25 mg/dL (7-18); BUN/Creat Ratio 23.8 RATIO (10-20); Calcium,Total 8.4 mg/dL (8.5-10.1); Chloride 101 mmol/L (98-107); Creatinine, Serum 1.05 mg/dL (0.70-1.30); EST Glomerular Filtration Rate 73 mL/min (>60); Est Glom Filt Rate - Afr Amer 88 mL/min (>60); Estimated Creatinine Clearance 57.98 ml/min; Glucose 130 mg/dL (74-106); Potassium 3.5 mmol/L (3.5-5.1); Protein, Total 6.5 g/dL (6.4-8.2); Sodium Level 138 mmol/L (136-145)
[2020-03-31] MEDS: dilTIAZem CD 120 MG Capsule PO (09:42)
[2020-03-31] MEDS: Lisinopril 20 MG Tablet PO (09:42)
[2020-03-31] MEDS: Enoxaparin 40 MG/0.4 ML Syringe SC (09:42)
[2020-03-31] MEDS: Furosemide 20 MG Tablet PO (09:42)
[2020-03-31] MEDS: Aspirin E.C. 81 MG Tablet PO (09:42)
[2020-03-31] MEDS: Finasteride 5 MG Tablet PO (09:43)
--- NOTE | 2020-03-31 13:41 | CASEMGMT ---
Social Work Received referral from physician that can not care for pt in the home and SNF placement is needed. SW Met with pt and in room and confirms pt care is greater than she can provide. Pt has previously been to [facility] and would like to return there. VM left with Cee at [facility]. Will await return call to determine if [facility] can accept pt. Plan: [facility] SNF, pending acceptance [facility]
--- NOTE | 2020-03-31 15:58 | PN_ITS ---
Patient Problems: Active and Suspected Problems (Last Updated 06/02/19 @ 08:[address] Amol Pink MD) Fever of unknown origin (Acute) Viral exanthem, unspecified (Acute) Ambulatory dysfunction (Acute) Subjective: Patient was seen and examined today, I talked with his who is in the room today, patient is weak and requires maximal assistance getting out of bed-his states that she cannot care for him at home, he has had a past history of CVA. Patient spiked a temperature this afternoon, I ordered another blood c ulture and infectious diseases saw the patient this afternoon. Patient's white blood cell count today was normal. - Physical Exam Vitals/I&O's: Vital Signs Temp Pulse Resp BP Pulse Ox 100.9 F H 102 H 20 H 136/78 H 94 03/31/20 15:37 03/31/20 15:37 03/31/20 15:37 03/31/20 15:37 03/31/20 15:37 Oxygen Delivery Method Room Air Weight: 105.2 kg Body Mass Index (BMI) 34.2 Finger Stick Blood Glucose 140 Intake and Output for Last 24 Hours 03/29/20 03/30/20 03/31/20 23:59 23:59 23:59 Intake Total 2026.67 / 2026.67 Output Total 300 / 300 Balance 1726.67 / 1726.67 General: Alert, Oriented x3, Cooperative, No apparent distress, Well developed, Lethargic HEENT: Atraumatic, PERRLA, EOMI, Normocephalic Oral: Moist Mucosa Neck: Supple, Trachea Midline, Thyroid Normal Size and Texture Lungs: Clear to auscultation, Normal air movement, No rhonchi, No wheeze, No rales Cardiovascular: No murmurs, PMI Normal, Irregular Rate, No rub noted, No Gallop Abdomen: Bowel Sounds Present, Soft, Non Tender, Non-Distended, No hernias noted Extremities: Capillary Refill Less than 3 Seconds, - - Patient has areas of punctate rash over the patient's legs bilaterally Skin: No breakdown, Rash Present - There is a rash present over the patient's lower legs extending into the area above the knee, there are punctate rash areas noted Musculoskeletal: No Tenderness to Palpation of Joints or Extremities Neurological: Cranial nerves II-XII grossly intact Psych/Mental Status: Flat Affect Microbiology Past 72 Hours 03/30/20 21:15 Urine Catheter - Catheter Streptococcus pneumoniae Antigen (M - Final 03/30/20 21:15 Urine Catheter - Catheter Legionella Antigen - Final Laboratory Results 03/30/20 20:10: COVID-19 (SAMMY) Negative 03/30/20 20:48: WBC 9.3, RBC 4.96, Hgb 14.8, Hct 44.8, MCV 90.3, MCH 29.8, MCHC 33.0, RDW Std Deviation 45.2 H, RDW Coeff of Tal 13.6, Plt Count 225, MPV 8.7, Immature Gran % (Auto) 0.600, Neut % (Auto) 87.1 H, Lymph % (Auto) 6.0 L, [place] % (Auto) 5.8, Eos % (Auto) 0.1, Baso % (Auto) 0.4, Absolute Neuts (auto) 8.1 H, Absolute Lymphs (auto) 0.56 L, Nucleated RBC % 0, Differential Comment SEE COMMENT, Platelet Estimate ADEQUATE, RBC Morphology N CHROM, Anisocytosis RARE 03/30/20 20:48: Sodium 136, Potassium 3.4 L, Chloride 103, Carbon Dioxide 26.0, Anion Gap 7, BUN 19 H, Creatinine 1.03, Estim Creat Clear Calc 59.11, Est GFR (MDRD) Af Amer 90, Est GFR (MDRD) Non-Af 74, BUN/Creatinine Ratio 18.4, Glucose 155 H, Calcium 8.9, Total Bilirubin 0.80, AST 17, ALT 21, Alkaline Phosphatase 54, Troponin I < 0.015, Total Protein 7.1, Albumin 2.8 L, Globulin 4.3 H, Albumin/Globulin Ratio 0.7 L 03/30/20 20:48: Lactic Acid 1.6 03/30/20 20:48: Magnesium 1.8 03/30/20 21:15: Urine Color Yellow, Urine Clarity Sl. Cloudy, Urine pH 5.0, Ur Specific [place] 1.020, Urine Protein 30 H, Urine Glucose (UA) Normal, Urine Ketones Negative, Urine Occult Blood 25 H, Urine Nitrite Negative, Urine Bilirubin Negative, Urine Urobilinogen Normal, Ur Leukocyte Esterase 25 H, Urine RBC 0-5 SEEN, Urine WBC 0-5 SEEN, Ur Squamous Epith Cells 0-5 SEEN, Urine Bacteria 0 SEEN, Urine Mucus 0 SEEN 03/31/20 00:20: Procalcitonin 0.14 H 03/31/20 05:16: WBC 7.4, RBC 4.52 L, Hgb 13.5, Hct 41.4, MCV 91.6, MCH 29.9, MCHC 32.6, RDW Std Deviation 46.8 H, RDW Coeff of Tal 13.7, Plt Count 205, MPV 9.0, Immature Gran % (Auto) 0.800, Neut % (Auto) 77.3 H, Lymph % (Auto) 12.2 L, [place] % (Auto) 7.5, Eos % (Auto) 1.7, Baso % (Auto) 0.5, Absolute Neuts (auto) 5.7, Absolute Lymphs (auto) 0.91, Nucleated RBC % 0 03/31/20 05:16: Sodium 138, Potassium 3.5, Chloride 101, Carbon Dioxide 30.0, Anion Gap 7, BUN 25 H, Creatinine 1.05, Estim Creat Clear Calc 57.98, Est GFR (MDRD) Af Amer 88, Est GFR (MDRD) Non-Af 73, BUN/Creatinine Ratio 23.8 H, Glucose 130 H, Calcium 8.4 L, Total Bilirubin 0.80, AST 15, ALT 22, Alkaline Phosphatase 51, Total Protein 6.5, Albumin 2.5 L, Globulin 4.0, Albumin/Globulin Ratio 0.6 L Current Medications Acetaminophen (Tylenol) 650 mg PO Q6H PRN PRN PRN Reason: Pain Score 1-10/Temp > 100.7 F Last Admin: 03/31/20 14:18 Dose: 650 mg Documented by: Aspirin (Ecotrin) 81 mg PO DAILY [facility] Last Admin: 03/31/20 09:42 Dose: 81 mg Documented by: Atorvastatin Calcium (Lipitor) 40 mg PO QHS [facility] Diltiazem HCl (Cardizem Cd) 120 mg PO DAILY [facility] Last Admin: 03/31/20 09:42 Dose: 120 mg Documented by: Enoxaparin Sodium (Lovenox) 40 mg SC DAILY [facility] Last Admin: 03/31/20 09:42 Dose: 40 mg Documented by: Finasteride (Proscar) 5 mg PO DAILY [facility] Last Admin: 08/14/20 09:43 Dose: 5 mg Documented by: Furosemide (Lasix) 20 mg PO DAILY [facility] Last Admin: 03/31/20 09:42 Dose: 20 mg Documented by: Guaifenesin (Mucinex) 600 mg PO BID [facility] Last Admin: 03/31/20 09:43 Dose: 600 mg Documented by: Sodium Chloride () 250 mls @ 15 mls/hr IV .[id number] PRN PRN Reason: Saline Flush Sodium Chloride () 1,000 mls @ 100 mls/hr IV .Q10H [facility] Last Admin: 03/31/20 09:40 Dose: 100 mls/hr Documented by: Lisinopril (Zestril) 20 mg PO DAILY [facility] Last Admin: 03/31/20 09:42 Dose: 20 mg Documented by: Melatonin (Melatonin) 3 mg PO QHS PRN PRN PRN Reason: INSOMNIA Last Admin: 03/31/20 00:25 Dose: 3 mg Documented by: Metoprolol Tartrate (Lopressor (Beta Marcie)) 100 mg PO BID [facility] Last Admin: 03/31/20 09:42 Dose: 100 mg Documented by: Nystatin (Mycostatin Powder) 1 applic TOPICAL TID [facility]; Protocol Last Admin: 03/31/20 05:17 Dose: 1 applicatio Documented by: Ondansetron HCl (Zofran) 4 mg IV Q8H PRN PRN PRN Reason: NAUSEA/VOMITING Sodium Chloride () 10 - 40 ml IV UD PRN PRN Reason: SALINE FLUSH Last Admin: 03/31/20 00:24 Dose: 10 ml Documented by: Tamsulosin HCl (Flomax) 0.4 mg PO DAILY@1730 [facility] Medical Necessity - Tobacco Use Smoking Status: Never smoker Tobacco Use: Non-smoker Assessment/Plan All Active Problems (Last Updated 06/02/19 @ 08:[address] Amol Pink MD) Fever of unknown origin (Acute) Viral exanthem, unspecified (Acute) Ambulatory dysfunction (Acute) HCAP (healthcare-associated pneumonia) (Acute) Atrial fibrillation with RVR (Acute) Acute urinary retention (Acute) #1 fever of unknown origin-await blood cultures, infectious diseases saw the patient today, no antibiotic coverage for now #2 generalized debility-patient was made an admission today, he will need temporary placement in a jail facility, I talked to his about this and she agrees. #3 rash over lower extremities-probably viral exanthem #4 cerebrovascular disease #5 chronic atrial fibrillation #6 dilated cardiomyopathy #7 essential hypertension Inpatient E&M: 78779 Init Hosp L3
--- NOTE | 2020-03-31 16:02 | PCM.HP.ID ---
Problem List (1) Fever of unknown origin Status: Acute Reason for Consult: fever Consulted by: Dr. Oreilly History of Present Illness: The patient is a 79 year old M with remote h/o rheumatic fever, presented with 2-3 days of fever, congestion, sneezing, rash on arms and legs. No headache, says things don't taste good, no aches, no dyspnea, mild cough. No sick contacts, isolating at home with his who has been healthy. No oral lesions, no contact with small children. Full ROS performed and neg except as noted above. - Medical History Past Medical History (Chronic Problems): Chronic Problems (Last Updated 06/02/19 @ 08:[address] Amol Pink MD) History of abnormal breathing pattern (Chronic) Transient ischemic attack (Chronic) Cardiomyopathy (Chronic) EF 40-45% 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) BPH (benign prostatic hypertrophy) (Chronic) Hyperlipidemia (Chronic) Aphasia (Chronic) Debility (Chronic) A-fib (Chronic) Hypertension (Chronic) Allergies/Adverse Reactions: Allergies donepezil [From Aricept] Adverse Reaction (Verified 06/01/19 03:25) Other increase stiffness could not move per levetiracetam [From Keppra] Adverse Reaction (Verified 06/01/19 03:25) Other Home Medications: Ambulatory Orders Medication Instructions Recorded Aspirin [Aspir-Low] 81 mg PO DAILY 03/03/19 Atorvastatin Calcium [Lipitor] 40 mg PO QHS 03/30/20 Diltiazem CD [Cardizem CD] 120 mg PO DAILY 03/30/20 Finasteride [Proscar] 5 mg PO DAILY 03/30/20 Furosemide [Lasix] 20 mg PO DAILY 03/30/20 Lisinopril [Zestril] 20 mg PO DAILY 03/30/20 Metoprolol Tartrate [Lopressor 100 mg PO BID 03/30/20 (beta leydi)] Tamsulosin HCl [Flomax] 0.4 mg PO DAILY@1730 03/30/20 - Social History Tobacco Use: non-smoker Vital Signs Temp Pulse Resp BP Pulse Ox 100.9 F H 102 H 20 H 136/78 H 94 03/31/20 15:37 03/31/20 15:37 03/31/20 15:37 03/31/20 15:37 03/31/20 15:37 Oxygen Delivery Method Room Air Weight: 105.2 kg Body Mass Index (BMI) 34.2 Finger Stick Blood Glucose 140 Microbiology Past 72 Hours 03/30/20 21:15 Streptococcus pneumoniae Antigen (M - Final Urine Catheter - Catheter 03/30/20 21:15 Legionella Antigen - Final Urine Catheter - Catheter Laboratory Tests Past 24 Hrs 03/30/20 03/30/20 03/30/20 20:10 20:48 20:48 WBC 9.3 RBC 4.96 Hgb 14.8 Hct 44.8 MCV 90.3 MCH 29.8 MCHC 33.0 RDW Std Deviation 45.2 H RDW Coeff of Tal 13.6 Plt Count 225 MPV 8.7 Immature Gran % (Auto) 0.600 Neut % (Auto) 87.1 H Lymph % (Auto) 6.0 L Becker % (Auto) 5.8 Eos % (Auto) 0.1 Baso % (Auto) 0.4 Absolute Neuts (auto) 8.1 H Absolute Lymphs (auto) 0.56 L Nucleated RBC % 0 Differential Comment SEE COMMENT Platelet Estimate ADEQUATE RBC Morphology N CHROM Anisocytosis RARE Sodium 136 Potassium 3.4 L Chloride 103 Carbon Dioxide 26.0 Anion Gap 7 BUN 19 H Creatinine 1.03 Estim Creat Clear Calc 59.11 Est GFR (MDRD) Af Amer 90 Est GFR (MDRD) Non-Af 74 BUN/Creatinine Ratio 18.4 Glucose 155 H Lactic Acid Calcium 8.9 Magnesium Total Bilirubin 0.80 AST 17 ALT 21 Alkaline Phosphatase 54 Troponin I < 0.015 Total Protein 7.1 Albumin 2.8 L Globulin 4.3 H Albumin/Globulin Ratio 0.7 L Procalcitonin Urine Color Urine Clarity Urine pH Ur Specific [place] Urine Protein Urine Glucose (UA) Urine Ketones Urine Occult Blood Urine Nitrite Urine Bilirubin Urine Urobilinogen Ur Leukocyte Esterase Urine RBC Urine WBC Ur Squamous Epith Cells Urine Bacteria Urine Mucus COVID-19 (SAMMY) Negative 03/30/20 03/30/20 03/30/20 20:48 20:48 21:15 WBC RBC Hgb Hct MCV MCH MCHC RDW Std Deviation RDW Coeff of Tal Plt Count MPV Immature Gran % (Auto) Neut % (Auto) Lymph % (Auto) Becker % (Auto) Eos % (Auto) Baso % (Auto) Absolute Neuts (auto) Absolute Lymphs (auto) Nucleated RBC % Differential Comment Platelet Estimate RBC Morphology Anisocytosis Sodium Potassium Chloride Carbon Dioxide Anion Gap BUN Creatinine Estim Creat Clear Calc Est GFR (MDRD) Af Amer Est GFR (MDRD) Non-Af BUN/Creatinine Ratio Glucose Lactic Acid 1.6 Calcium Magnesium 1.8 Total Bilirubin AST ALT Alkaline Phosphatase Troponin I Total Protein Albumin Globulin Albumin/Globulin Ratio Procalcitonin Urine Color Yellow Urine Clarity Sl. Cloudy Urine pH 5.0 Ur Specific [place] 1.020 Urine Protein 30 H Urine Glucose (UA) Normal Urine Ketones Negative Urine Occult Blood 25 H Urine Nitrite Negative Urine Bilirubin Negative Urine Urobilinogen Normal Ur Leukocyte Esterase 25 H Urine RBC 0-5 SEEN Urine WBC 0-5 SEEN Ur Squamous Epith Cells 0-5 SEEN Urine Bacteria 0 SEEN Urine Mucus 0 SEEN COVID-19 (SAMMY) 03/31/20 03/31/20 03/31/20 00:20 05:16 05:16 WBC 7.4 RBC 4.52 L Hgb 13.5 Hct 41.4 MCV 91.6 MCH 29.9 MCHC 32.6 RDW Std Deviation 46.8 H RDW Coeff of Tal 13.7 Plt Count 205 MPV 9.0 Immature Gran % (Auto) 0.800 Neut % (Auto) 77.3 H Lymph % (Auto) 12.2 L Becker % (Auto) 7.5 Eos % (Auto) 1.7 Baso % (Auto) 0.5 Absolute Neuts (auto) 5.7 Absolute Lymphs (auto) 0.91 Nucleated RBC % 0 Differential Comment Platelet Estimate RBC Morphology Anisocytosis Sodium 138 Potassium 3.5 Chloride 101 Carbon Dioxide 30.0 Anion Gap 7 BUN 25 H Creatinine 1.05 Estim Creat Clear Calc 57.98 Est GFR (MDRD) Af Amer 88 Est GFR (MDRD) Non-Af 73 BUN/Creatinine Ratio 23.8 H Glucose 130 H Lactic Acid Calcium 8.4 L Magnesium Total Bilirubin 0.80 AST 15 ALT 22 Alkaline Phosphatase 51 Troponin I Total Protein 6.5 Albumin 2.5 L Globulin 4.0 Albumin/Globulin Ratio 0.6 L Procalcitonin 0.14 H Urine Color Urine Clarity Urine pH Ur Specific [place] Urine Protein Urine Glucose (UA) Urine Ketones Urine Occult Blood Urine Nitrite Urine Bilirubin Urine Urobilinogen Ur Leukocyte Esterase Urine RBC Urine WBC Ur Squamous Epith Cells Urine Bacteria Urine Mucus COVID-19 (SAMMY) - Other Studies Radiology: [] reviewed Other Studies: [] Route of nutrition/ use of supplements: [] Nutritional Intake: [] IV Site: [] [place] Catheter: [] - Physical Exam General: Alert, Oriented x3, Cooperative, No apparent distress HEENT: Atraumatic, PERRLA, EOMI Neck: Supple, No Nodes Lungs: Clear to auscultation, Normal air movement Cardiovascular: Regular rate, Regular Rhythm Abdomen: Soft, Non Tender, Non-Distended Extremities: No edema Skin: Rash Present - blanching, raised erythema, nonconfluent, on distal arms and leg. Some on palm on R hand. IV Site: Peripheral, without redness Musculoskeletal: No Tenderness to Palpation of Joints or Extremities Neurological: Cranial nerves II-XII grossly intact - Assessment/Plan Antibiotics: [] Assessment/Plan: [] Active and Suspected Problems (Last Updated 06/02/19 @ 08:[address] Amol Pink MD) Fever of unknown origin (Acute) Viral exanthem, unspecified (Acute) Ambulatory dysfunction (Acute) suspect viral source given rash, fever, sneezing. Will check resp viral panel. Denies any bug/tick bites. Will follow, thank you, d/w Dr. Oreilly. Will monitor off of abx.
--- NOTE | 2020-03-31 16:15 | CASEMGMT ---
Social Work Return call from [facility] and they are able to accept pt and can take over the weekend. 7000 form completed in [employer] system and Covid screen for negative Covid completed. Pt can transfer to [facility] on Friday. Pt notified and agreeable. Physician and nursing notified. Plan: [facility], pt can transfer when medically ready [facility]
[2020-03-31] MEDS: Tamsulosin HCl 0.4 MG Capsule PO (17:03)
[2020-03-31] MEDS: Atorvastatin Calcium 40 MG Tablet PO (21:56)
[2020-04-01] VITALS (10 sets, daily range): BP systolic 119–137; BP diastolic 60–84; PULSE 80–100; RESP 18–20; TEMP 36.7–38.6; O2SAT 93–96
[2020-04-01] MEDS: 0.9% Saline Lock 10 ML Syringe IV (01:29)
[2020-04-01] MEDS: Acetaminophen 325 MG Tablet 650 MG PO ×2 (01:34→13:29)
[2020-04-01] MEDS: 0.9% Normal Saline 1,000 ML 100 ML IV ×2 (06:17→16:29)
[2020-04-01] MEDS: Nystatin Powder 15gm Bottle 1 APPLIC TOPICAL ×3 (06:17→21:15)
[2020-04-01] MEDS: dilTIAZem CD 120 MG Capsule PO (09:23)
[2020-04-01] MEDS: Aspirin E.C. 81 MG Tablet PO (09:24)
[2020-04-01] MEDS: guaiFENesin 600 MG Tablet PO ×2 (09:24→21:14)
[2020-04-01] MEDS: Enoxaparin 40 MG/0.4 ML Syringe SC (09:24)
[2020-04-01] MEDS: Lisinopril 20 MG Tablet PO (09:24)
[2020-04-01] MEDS: Metoprolol Tartrate 100 MG Tablet PO ×2 (09:24→21:14)
[2020-04-01] MEDS: Furosemide 20 MG Tablet PO (09:24)
[2020-04-01] MEDS: Finasteride 5 MG Tablet PO (09:24)
[2020-04-01 09:57] LABS: Absolute Lymphocyte Count 0.58 X10^3/uL (0.83-4.51); Absolute Neutrophil Count 5.8 X10^3/uL (2.0-7.7); Basophil# 0.02 X10^3/uL; Basophil% 0.3 % (0-1); Eosinophil# 0.13 X10^3/uL; Eosinophils% 1.9 % (0-5); Hematocrit 42.1 % (40-54); Hemoglobin 13.7 g/dL (13.0-16.5); Lymphocyte # 0.58 X10^3/ul (4.0); Lymphocyte % 8.4 % (19-41); Mean Corp Hgb Conc 32.5 g/dL (32-36); Mean Corpuscular Hgb 29.8 pg (27.0-32.0); Mean Corpuscular Volume 91.5 fL (80-94); Mean Platelet Vol. 8.3 fl (6.2-12.0); Monocyte% 4.3 % (0-10); NRBC Flagged by Analyzer 0 % (0-5); Neutrophil # 5.79 X10^3/uL (2.7-7.7); Neutrophil % 83.7 % (47-70); POSITIVE DIFFERENTIAL YES; Platelet Count 204 K/mm3 (150-450); RBC Distribution Width SD 47.3 fl (35.1-43.9); White Blood Count 6.9 K/mm3 (4.4-11.0)
[2020-04-01 09:58] LABS: Differential Indicated SCAN CRITERIA MET
[2020-04-01 10:38] LABS: Differential Comment SCANNED
--- NOTE | 2020-04-01 11:37 | PCM.PROGNOTE ---
Patient Problems: Active and Suspected Problems (Last Updated 06/02/19 @ 08:[address] Amol Pink MD) Fever of unknown origin (Acute) Viral exanthem, unspecified (Acute) Ambulatory dysfunction (Acute) Subjective: Patient was seen and examined today, he spiked a temperature at 2 AM this morning of 101.1. Patient is afebrile this morning however, patient's blood cultures have not resulted as of yet, I am reluctant to send him to an extended care facility till we get preliminary blood culture results. Objective: General: Alert, Oriented x3, Cooperative, No apparent distress, Well developed, Lethargic HEENT: Atraumatic, PERRLA, EOMI, Normocephalic Oral: Moist Mucosa Neck: Supple, Trachea Midline, Thyroid Normal Size and Texture Lungs: Clear to auscultation, Normal air movement, No rhonchi, No wheeze, No rales Cardiovascular: No murmurs, PMI Normal, Irregular Rate, No rub noted, No Gallop Abdomen: Bowel Sounds Present, Soft, Non Tender, Non-Distended, No hernias noted Extremities: Capillary Refill Less than 3 Seconds, - - Patient has areas of punctate rash over the patient's legs bilaterally, the same rash appears to be present over his lower arms. Skin: No breakdown, Rash Present - There is a rash present over the patient's lower legs extending into the area above the knee, there are punctate rash areas noted Musculoskeletal: No Tenderness to Palpation of Joints or Extremities Neurological: Cranial nerves II-XII grossly intact Psych/Mental Status: Flat Affect - Physical Exam Vitals/I&O's: Vital Signs Temp Pulse Resp BP Pulse Ox 101.1 F H 100 18 125/63 H 95 04/01/20 02:09 04/01/20 09:24 04/01/20 02:09 04/01/20 02:09 04/01/20 07:01 Oxygen Delivery Method Room Air Weight: 105.2 kg Body Mass Index (BMI) 34.2 Finger Stick Blood Glucose 140 Intake and Output for Last 24 Hours 03/30/20 03/31/20 04/01/20 23:59 23:59 23:59 Intake Total 3276.67 / 3276.67 1470.00 / 1470.00 Output Total 300 / 300 Balance 2976.67 / 2976.67 1470.00 / 1470.00 Microbiology Past 72 Hours 03/31/20 19:29 Mucosa - Nasopharyngeal Respiratory Panel (PCR) - Final 03/31/20 19:45 Sputum, Expectorated/Coughed Respiratory Culture - Preliminary Appears to be normal respiratory hilario. Further studies to follow. 03/30/20 21:15 Urine, Clean Catch Urine Culture - Preliminary Culture exhibits no growth. 03/30/20 21:15 Urine Catheter - Catheter Streptococcus pneumoniae Antigen (M - Final 03/30/20 21:15 Urine Catheter - Catheter Legionella Antigen - Final Laboratory Results 04/01/20 09:50: WBC 6.9, RBC 4.60, Hgb 13.7, Hct 42.1, MCV 91.5, MCH 29.8, MCHC 32.5, RDW Std Deviation 47.3 H, RDW Coeff of Tal 14.0, Plt Count 204, MPV 8.3, Immature Gran % (Auto) 1.400 H, Neut % (Auto) 83.7 H, Lymph % (Auto) 8.4 L, [place] % (Auto) 4.3, Eos % (Auto) 1.9, Baso % (Auto) 0.3, Absolute Neuts (auto) 5.8, Absolute Lymphs (auto) 0.58 L, Nucleated RBC % 0, Differential Comment SCANNED Current Medications Acetaminophen (Tylenol) 650 mg PO Q6H PRN PRN PRN Reason: Pain Score 1-10/Temp > 100.7 F Last Admin: 04/01/20 01:34 Dose: 650 mg Documented by: Aspirin (Ecotrin) 81 mg PO DAILY [facility] Last Admin: 04/01/20 09:24 Dose: 81 mg Documented by: Atorvastatin Calcium (Lipitor) 40 mg PO QHS [facility] Last Admin: 03/31/20 21:56 Dose: 40 mg Documented by: Diltiazem HCl (Cardizem Cd) 120 mg PO DAILY [facility] Last Admin: 04/01/20 09:23 Dose: 120 mg Documented by: Enoxaparin Sodium (Lovenox) 40 mg SC DAILY [facility] Last Admin: 04/01/20 09:24 Dose: 40 mg Documented by: Finasteride (Proscar) 5 mg PO DAILY [facility] Last Admin: 04/01/20 09:24 Dose: 5 mg Documented by: Furosemide (Lasix) 20 mg PO DAILY [facility] Last Admin: 04/01/20 09:24 Dose: 20 mg Documented by: Guaifenesin (Mucinex) 600 mg PO BID [facility] Last Admin: 04/01/20 09:24 Dose: 600 mg Documented by: Sodium Chloride () 250 mls @ 15 mls/hr IV .[id number] PRN PRN Reason: Saline Flush Sodium Chloride () 1,000 mls @ 100 mls/hr IV .Q10H [facility] Last Admin: 04/01/20 06:17 Dose: 100 mls/hr Documented by: Lisinopril (Zestril) 20 mg PO DAILY [facility] Last Admin: 04/01/20 09:24 Dose: 20 mg Documented by: Melatonin (Melatonin) 3 mg PO QHS PRN PRN PRN Reason: INSOMNIA Last Admin: 03/31/20 00:25 Dose: 3 mg Documented by: Metoprolol Tartrate (Lopressor (Beta Marcie)) 100 mg PO BID [facility] Last Admin: 04/01/20 09:24 Dose: 100 mg Documented by: Nystatin (Mycostatin Powder) 1 applic TOPICAL TID [facility]; Protocol Last Admin: 04/01/20 06:17 Dose: 1 applicatio Documented by: Ondansetron HCl (Zofran) 4 mg IV Q8H PRN PRN PRN Reason: NAUSEA/VOMITING Sodium Chloride () 10 - 40 ml IV UD PRN PRN Reason: SALINE FLUSH Last Admin: 04/01/20 01:29 Dose: 10 ml Documented by: Tamsulosin HCl (Flomax) 0.4 mg PO DAILY@1730 [facility] Last Admin: 03/31/20 17:03 Dose: 0.4 mg Documented by: Medical Necessity - Tobacco Use Smoking Status: Never smoker Tobacco Use: Non-smoker Assessment/Plan All Active Problems (Last Updated 06/02/19 @ 08:[address] Amol Pink MD) Fever of unknown origin (Acute) Viral exanthem, unspecified (Acute) Ambulatory dysfunction (Acute) HCAP (healthcare-associated pneumonia) (Acute) Atrial fibrillation with RVR (Acute) Acute urinary retention (Acute) #1 fever of unknown origin-await blood cultures, again, I do not feel the patient needs antibiotic coverage at this time I will continue to monitor him for fever, we are waiting preliminary blood culture results, patient was accepted at a fci in [place] #2 generalized debility-patient will be transferred to a nursing facility in [place] when he is medically stable #3 rash over lower extremities and arms-probably viral exanthem #4 cerebrovascular disease #5 chronic atrial fibrillation #6 dilated cardiomyopathy #7 essential hypertension Inpatient E&M: 29020 Subs Hosp L2
[2020-04-01] MEDS: Phenazopyridine 95 MG Tablet PO ×2 (13:17→21:11)
[2020-04-01] MEDS: Tamsulosin HCl 0.4 MG Capsule PO (18:51)
[2020-04-01] MEDS: MELATONIN 3 MG TABLET PO (21:11)
[2020-04-01] MEDS: Atorvastatin Calcium 40 MG Tablet PO (21:14)
[2020-04-02 00:42] VITALS: BP 156/87; PULSE 77; RESP 18; TEMP 37.6; O2SAT 93
[2020-04-02] MEDS: 0.9% Normal Saline 1,000 ML 100 ML IV (02:22)
[2020-04-02 04:39] VITALS: TEMP 36.8
[2020-04-02] MEDS: Phenazopyridine 95 MG Tablet PO ×2 (06:07→12:56)
[2020-04-02] MEDS: Nystatin Powder 15gm Bottle 1 APPLIC TOPICAL (06:07)
[2020-04-02 06:12] VITALS: BP 141/83; PULSE 100; RESP 18; TEMP 37.1; O2SAT 94
[2020-04-02 07:03] VITALS: O2SAT 94
--- NOTE | 2020-04-02 09:00 | TREXTCAR_ITS ---
- Diet 03/31/20 16:53 Diet: Cardiac: Calorie-Controlled Food consistency:: Mechanical Soft/Ground Liquid Consistency:: Regular/Thin Is pt able to select menu?: No How many daily calories?: 2000 calorie - Therapies Physical Therapy: Eval and Treat Occupational Therapy: Eval and Treat - Problem/Diagnosis (1) Chronic atrial fibrillation Status: Chronic Comment: not a candidate for anticoagulation due to past history of bleeding Current Visit: Yes (2) Fever of unknown origin Status: Acute Current Visit: Yes (3) BPH (benign prostatic hypertrophy) Status: Chronic Current Visit: No (4) Hyperlipidemia Status: Chronic Current Visit: No (5) Debility Status: Chronic Current Visit: No (6) Hypertension Status: Chronic Current Visit: No - Allergies/Procedures Done in Hospital Allergies/Adverse Reactions: Allergies donepezil [From Aricept] Adverse Reaction (Verified 06/01/19 03:25) Other increase stiffness could not move per levetiracetam [From Keppra] Adverse Reaction (Verified 06/01/19 03:25) Other Procedures: None - Type of Care/Length of Stay Estimated LOS: Convalescent Care Less Than 30 days Type of Care Needed: Skilled Rehab Potential: Good Prognosis: Good - Additional Orders/Day of Discharge H&P will serve as current which was dated: 03/30/20 Day of Discharge: 04/01/20 - Dietary and Speech Recommendations Dietitian Recommendations/Changes: Will provide Cardiac:2000 Calorie controlled diet, texture modifications per [employer]. - Follow Up Care Primary Care Physician: Parmjit Grajeda MD [Primary Care Provider] -
[2020-04-02 09:03] VITALS: BP 145/86; PULSE 100; RESP 20; TEMP 37; O2SAT 92
[2020-04-02] MEDS: Furosemide 20 MG Tablet PO (09:12)
[2020-04-02] MEDS: Aspirin E.C. 81 MG Tablet PO (09:12)
[2020-04-02] MEDS: Enoxaparin 40 MG/0.4 ML Syringe SC (09:12)
[2020-04-02] MEDS: dilTIAZem CD 120 MG Capsule PO (09:12)
[2020-04-02] MEDS: Finasteride 5 MG Tablet PO (09:12)
[2020-04-02 09:15] VITALS: PULSE 100
[2020-04-02] MEDS: Metoprolol Tartrate 100 MG Tablet PO (09:15)
[2020-04-02] MEDS: Lisinopril 20 MG Tablet PO (09:15)
[2020-04-02] MEDS: guaiFENesin 600 MG Tablet PO (09:15)
--- NOTE | 2020-04-02 10:08 | NURSING ---
Called report to Shawna at [facility] at this time. notified of pick up operator time of 1300.
--- NOTE | 2020-04-02 10:17 | DS.PCM_ITS ---
Discharge Date and Diagnosis - Problem List Patient Problems: Active and Suspected Problems (Last Updated 06/02/19 @ 08:[address] Amol Pink MD) Fever of unknown origin (Acute) Viral exanthem, unspecified (Acute) Ambulatory dysfunction (Acute) Date of Admission: 03/30/20 Date of Discharge: 04/02/20 - Primary Discharge Diagnosis Acute Problems: Active Problems (Last Updated 06/02/19 @ 08:[address] Amol Pink MD) #1 fever of unknown origin #2 generalized debility #3 rash over lower extremities and arms-probably viral exanthem #4 cerebrovascular disease #5 chronic atrial fibrillation #6 dilated cardiomyopathy #7 essential hypertension - Secondary Discharge Diagnosis Chronic Problems: Chronic Problems (Last Updated 06/02/19 @ 08:[address] Amol Pink MD) Chronic atrial fibrillation (Chronic) not a candidate for anticoagulation due to past history of bleeding History of abnormal breathing pattern (Chronic) Transient ischemic attack (Chronic) Cardiomyopathy (Chronic) EF 40-45% 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) BPH (benign prostatic hypertrophy) (Chronic) Hyperlipidemia (Chronic) Aphasia (Chronic) Debility (Chronic) A-fib (Chronic) Hypertension (Chronic) Hospital Course and Treatment Operations: None Procedures: None Summary of Care Provided: The patient is a 79 year old M who was seen in the emergency room at [facility] with being brought in by his with complaints of fever. According to the , patient's temperature is been up to 103 at home, he complained of a mild cough and she stated that the sputum is occasionally productive appearing. Work-up in the emergency room included labs revealed a normal white blood cell count and hemoglobin, patient's potassium was 3.4, glucose was 155, BUN was 19, patient's pro calcitonin was elevated at 0.14, urinalysis was positive for leukocyte Estrace negative for nitrite and 0-5 white blood cells and red blood cells were seen there is no bacteria seen. Patient had a COVID 19 test performed which was negative, patient had a chest x-ray performed which showed no acute process. Patient's oxygen saturation was adequate on room air. Patient's temperature in the emergency room was 102.6. Patient was placed in observation status on MedSur 3 for fever of unknown origin, he subsequently was made a full admission when he became evident that the patient's could not care for him at home and that he had too much d ebility with his current illness. Patient continued to spike temperatures for the next 24 hours after admission but patient's cultures all came back negative including his urine culture and blood culture that was drawn on admission. Patient's urine antigens were negative for legionnaires disease and strep pneumoniae, and the patient's respiratory panel was negative. Patient's white blood cell count remained normal during his hospitalization, he had a diffuse rash present over parts of his arms trunk and legs-this was felt to be a viral exanthem. Patient was seen in consultation by infectious diseases and they did not feel the patient warranted antibiotic treatment and felt that the patient probably had a viral illness. PT and OT saw the patient and he was felt to be candidate for inpatient skilled care at a facility. On 04/02/2020, patient was seen and examined:General: Alert, Oriented x3, Cooperative, No apparent distress, Well developed, Lethargic HEENT: Atraumatic, PERRLA, EOMI, Normocephalic Oral: Moist Mucosa Neck: Supple, Trachea Midline, Thyroid Normal Size and Texture Lungs: Clear to auscultation, Normal air movement, No rhonchi, No wheeze, No rales Cardiovascular: No murmurs, PMI Normal, Irregular Rate, No rub noted, No Gallop Abdomen: Bowel Sounds Present, Soft, Non Tender, Non-Distended, No hernias noted Extremities: Capillary Refill Less than 3 Seconds, - - Patient has areas of punctate rash over the patient's legs bilaterally, the same rash appears to be present over his lower arms. Skin: No breakdown, Rash Present - There is a rash present over the patient's lower legs extending into the area above the knee, there are punctate rash areas noted Musculoskeletal: No Tenderness to Palpation of Joints or Extremities Neurological: Cranial nerves II-XII grossly intact Psych/Mental Status: Flat Affect Patient was felt to be stable for discharge to an extended care facility in [facility] on 04/02/2020 ([facility]). Patient Problems: Active and Suspected Problems (Last Updated 06/02/19 @ 08:[address] Amol Pink MD) Fever of unknown origin (Acute) Viral exanthem, unspecified (Acute) Ambulatory dysfunction (Acute) - Physical Exam Vitals/I&O's: Vital Signs Temp Pulse Resp BP Pulse Ox 98.6 F 100 20 H 145/86 H 92 04/02/20 09:03 04/02/20 09:15 04/02/20 09:03 04/02/20 09:03 04/02/20 09:03 Oxygen Delivery Method Room Air Weight: 105.2 kg Body Mass Index (BMI) 34.2 Finger Stick Blood Glucose 140 Intake and Output for Last 24 Hours 03/31/20 04/01/20 04/02/20 23:59 23:59 23:59 Intake Total 3276.67 / 3276.67 3670.00 / 3670.00 1835.00 / 1835.00 Output Total 300 / 300 100 / 250 150 / 150 Balance 2976.67 / 2976.67 3570.00 / 3420.00 1685.00 / 1685.00 Microbiology Past 72 Hours 03/30/20 21:00 Blood Culture (Wb) - Left Hand Blood Culture - Preliminary No growth in 48 hours. 03/30/20 20:48 Blood Culture (Wb) - No Site/Description Given Blood Culture - Preliminary No growth in 48 hours. 03/31/20 19:45 Sputum, Expectorated/Coughed Gram Stain - Final 03/31/20 19:45 Sputum, Expectorated/Coughed Respiratory Culture - Preliminary Appears to be normal respiratory hilario. Further studies to follow. 03/30/20 21:15 Urine, Clean Catch Urine Culture - Final Culture exhibits no growth. 03/31/20 19:29 Mucosa - Nasopharyngeal Respiratory Panel (PCR) - Final 03/30/20 21:15 Urine Catheter - Catheter Streptococcus pneumoniae Antigen (M - Final 03/30/20 21:15 Urine Catheter - Catheter Legionella Antigen - Final Laboratory Results 04/01/20 09:50: Differential Comment SCANNED Current Medications Acetaminophen (Tylenol) 650 mg PO Q6H PRN PRN PRN Reason: Pain Score 1-10/Temp > 100.7 F Last Admin: 04/01/20 13:29 Dose: 650 mg Documented by: Aspirin (Ecotrin) 81 mg PO DAILY [facility] Last Admin: 04/02/20 09:12 Dose: 81 mg Documented by: Atorvastatin Calcium (Lipitor) 40 mg PO QHS [facility] Last Admin: 04/01/20 21:14 Dose: 40 mg Documented by: Diltiazem HCl (Cardizem Cd) 120 mg PO DAILY [facility] Last Admin: 04/02/20 09:12 Dose: 120 mg Documented by: Enoxaparin Sodium (Lovenox) 40 mg SC DAILY [facility] Last Admin: 04/02/20 09:12 Dose: 40 mg Documented by: Finasteride (Proscar) 5 mg PO DAILY [facility] Last Admin: 04/02/20 09:12 Dose: 5 mg Documented by: Furosemide (Lasix) 20 mg PO DAILY [facility] Last Admin: 04/02/20 09:12 Dose: 20 mg Documented by: Guaifenesin (Mucinex) 600 mg PO BID [facility] Last Admin: 04/02/20 09:15 Dose: 600 mg Documented by: Sodium Chloride () 250 mls @ 15 mls/hr IV .[id number] PRN PRN Reason: Saline Flush Sodium Chloride () 1,000 mls @ 100 mls/hr IV .Q10H [facility] Last Admin: 04/02/20 10:09 Dose: Not Given Documented by: Lisinopril (Zestril) 20 mg PO DAILY [facility] Last Admin: 04/02/20 09:15 Dose: 20 mg Documented by: Melatonin (Melatonin) 3 mg PO QHS PRN PRN PRN Reason: INSOMNIA Last Admin: 04/01/20 21:11 Dose: 3 mg Documented by: Metoprolol Tartrate (Lopressor (Beta Marcie)) 100 mg PO BID [facility] Last Admin: 04/02/20 09:15 Dose: 100 mg Documented by: Nystatin (Mycostatin Powder) 1 applic TOPICAL TID [facility]; Protocol Last Admin: 04/02/20 06:07 Dose: 1 applicatio Documented by: Ondansetron HCl (Zofran) 4 mg IV Q8H PRN PRN PRN Reason: NAUSEA/VOMITING Phenazopyridine HCl (Azo Standard) 95 mg PO TID [facility] Stop: 04/03/20 06:01 Last Admin: 04/02/20 06:07 Dose: 95 mg Documented by: Sodium Chloride () 10 - 40 ml IV UD PRN PRN Reason: SALINE FLUSH Last Admin: 04/01/20 01:29 Dose: 10 ml Documented by: Tamsulosin HCl (Flomax) 0.4 mg PO DAILY@1730 [facility] Last Admin: 04/01/20 18:51 Dose: 0.4 mg Documented by: Home Medications: Medications to take at Discharge Aspirin [Aspir-Low] 81 mg PO DAILY 03/03/19 Atorvastatin Calcium [Lipitor] 40 mg PO QHS 03/30/20 Diltiazem CD [Cardizem CD] 120 mg PO DAILY 03/30/20 Finasteride [Proscar] 5 mg PO DAILY 03/30/20 Furosemide [Lasix] 20 mg PO DAILY 03/30/20 Lisinopril [Zestril] 20 mg PO DAILY 03/30/20 Metoprolol Tartrate [Lopressor (beta marcie)] 100 mg PO BID 03/30/20 Tamsulosin HCl [Flomax] 0.4 mg PO DAILY@1730 03/30/20 Atorvastatin Calcium [Lipitor] 40 mg PO QHS tab 04/02/20 Nystatin Powder [Mycostatin Powder] 1 applic TOPICAL BID #1 bottle 04/02/20 Phenazopyridine HCl [Azo Urinary Pain Relief] 95 mg PO BID #10 tab 04/02/20 Following Prescriptions Were Given to Patient: Phenazopyridine HCl [Azo Urinary Pain Relief] 95 mg PO BID #10 tab Nystatin Powder [Mycostatin Powder] 1 applic TOPICAL BID #1 bottle Primary Care Physician: Parmjit Grajeda MD [Primary Care Provider] - Disposition: Care Home facility Minutes spent on discharge:: 32 Patient Condition:: Stable Medical Necessity - Tobacco Use Smoking Status: Never smoker Tobacco Use: Non-smoker Meaningful Use Info Meaningful Use Diagnoses (Choose all that apply): None applicable Inpatient E&M: 94177 Disch Hosp
--- NOTE | 2020-04-02 11:03 | CT_ITS ---
STUDY: CT BRAIN WITHOUT CONTRAST REASON FOR EXAM: Male, 79 years old. CONFUSION RADIATION DOSAGE (If Supplied By Facility): CTDIvol = ( 44.99 ) mGy, DLP = ( 779.24 ) mGycm TECHNIQUE: Transaxial CT imaging of the brain was performed without administration of intravenous contrast material. Coronal and sagittal reconstructions were performed. Individualized dose optimization techniques were used for this CT. COMPARISON: CT head without contrast 03/04/2019. FINDINGS: Normal soft tissue structures. Normal calvarium. Normal size ventricles and extra-axial spaces for the patient''s age. Multiple hypodensities in the white matter of both cerebral hemispheres are confluent chronic white matter ischemic changes and unchanged. Old lacunar cystic infarct in the right thalamus is unchanged. Normal left thalamus. Normal basal ganglia. Normal brainstem. Normal cerebellum. There is no intracranial hemorrhage. There are no findings of an acute ischemic infarction. Normal visualized paranasal sinuses. Dense calcified plaques along the dominant intradural segment of the left vertebral artery. Calcified plaques in both internal carotid artery siphons. CT/Brain/Head without Contrast IMPRESSION: 1. No CT evidence of intracranial bleeding, acute ischemic infarct or acute intracranial abnormality. 2. Confluent chronic white matter ischemic changes in both cerebral hemispheres. 3. Old lacunar cystic infarct in right thalamus. 4. No interval change when compared to 03/04/2019. Electronically Signed: Jozef Mcmanus MD at 12:47 EDT , Service support ,
== END 2020-04-02 13:16 | disposition skilled nursing facility (03) | DRG 864 ==
LOC: ED 20:11 → MS3 23:17
PROVIDERS: Admitting Provider Family Medicine; Emergency Provider Emergency Medicine; PCP Family Medicine; Visit Provider Internal Medicine
DX: R50.9 Fever, unspecified (principal); I48.20 Chronic atrial fibrillation, unspecified; I42.0 Dilated cardiomyopathy; B09 Unspecified viral infection characterized by skin and mucous membrane lesions; R53.81 Other malaise; I10 Essential (primary) hypertension; N40.0 Benign prostatic hyperplasia without lower urinary tract symptoms; E78.5 Hyperlipidemia, unspecified; I69.320 Aphasia following cerebral infarction; I49.3 Ventricular premature depolarization; J30.2 Other seasonal allergic rhinitis; Z79.82 Long term (current) use of aspirin; Z79.899 Other long term (current) drug therapy; E66.9 Obesity, unspecified; Z68.35 Body mass index [BMI] 35.0-35.9, adult; Z87.01 Personal history of pneumonia (recurrent); Z87.440 Personal history of urinary (tract) infections
CPT/HCPCS: 36415; 70450; 71045; 80053; 81001; 83605; 83735; 84145; 84484; 85025; 87040; 87070; 87086; 87205; 87449; 87633; 87635; 92507; 92526; 93005; 94799; 97162; 97166; 99251; 99285; J7030; A4216; G0463; U0003

== ENCOUNTER → 2020-09-26 08:01 | Outpatient (REF) | payer MEDICARE, OTHER, SELFPAY ==
[2020-09-26 09:32] LABS: Hematocrit 45.2 % (40-54); Hemoglobin 14.4 g/dL (13.0-16.5); Mean Corp Hgb Conc 31.9 g/dL (32-36); Mean Corpuscular Hgb 28.8 pg (27.0-32.0); Mean Corpuscular Volume 90.4 fL (80-94); Mean Platelet Vol. 8.4 fl (6.2-12.0); Platelet Count 232 K/mm3 (150-450); RBC Distribution Width CV 14.2 % (11.6-14.6); RBC Distribution Width SD 47.2 fl (35.1-43.9); White Blood Count 6.5 K/mm3 (4.4-11.0)
[2020-09-26 10:05] LABS: ALB/GLOB Ratio 0.9 RATIO (0.9-2.4); AST(SGOT) 19 U/L (15-37); Alanine Aminotransfer ALT/SGPT 28 U/L (16-61); Alkaline Phosphatase 67 U/L (45-117); Anion Gap 2 (5-15); BUN 14 mg/dL (7-18); BUN/Creat Ratio 16.1 RATIO (10-20); Calcium,Total 8.8 mg/dL (8.5-10.1); Chloride 108 mmol/L (98-107); Cholesterol 123 mg/dL (200); Creatinine, Serum 0.87 mg/dL (0.70-1.30); EST Glomerular Filtration Rate 90 mL/min (>60); Est Glom Filt Rate - Afr Amer 109 mL/min (>60); Globulin 3.5 g/dL (2.2-4.2); Glucose 112 mg/dL (74-106); High Density Lipoprotein 43 mg/dL; Magnesium 1.9 mg/dL (1.6-2.6); PSA,Total- Diagnostic 1.28 ng/mL (0.0-4.0); Potassium 3.8 mmol/L (3.5-5.1); Protein, Total 6.5 g/dL (6.4-8.2); Sodium Level 141 mmol/L (136-145); Thyroid Stim Hormone (TSH) 1.92 uIU/mL (0.358-3.74); Triglycerides 112 mg/dL; Very Low Density Lipoprotein 22 mg/dL (5-40)
== END ==
LOC: LAB 08:01
PROVIDERS: PCP Family Medicine; Visit Provider Family Medicine
DX: I10 Essential (primary) hypertension (principal); I48.91 Unspecified atrial fibrillation; E83.42 Hypomagnesemia
CPT/HCPCS: 36415; 80053; 80061; 83735; 84153; 84443; 85027

== ENCOUNTER 2020-10-26 07:29 | Outpatient (RCR) | payer MEDICARE, OTHER, SELFPAY ==
[2020-10-26] MEDS: COVID-19 VACC, MRNA(PFIZER)/PF 30 MCG/0.3 ML SYRINGE IM (15:19)
[2020-11-16] MEDS: COVID-19 VACC, MRNA(PFIZER)/PF 30 MCG/0.3 ML SYRINGE IM (15:07)
== END 2021-01-23 23:59 ==
LOC: IMMUN 07:29
PROVIDERS: PCP Family Medicine; Referring Provider Family Medicine; Visit Provider Family Medicine
DX: Z23 Encounter for immunization (principal)
CPT/HCPCS: 0001A; 0002A; 91300

== ENCOUNTER → 2021-04-03 04:15 | Outpatient (CLI) | payer MEDICARE, OTHER, SELFPAY ==
[2021-04-03 10:16] LABS: Mean Corp Hgb Conc 32.6 g/dL (32-36); Mean Corpuscular Hgb 29.3 pg (27.0-32.0); Mean Corpuscular Volume 89.8 fL (80-94); Mean Platelet Vol. 8.4 fl (6.2-12.0); Platelet Count 229 K/mm3 (150-450); RBC Distribution Width CV 14.3 % (11.6-14.6); Red Blood Count 5.12 M/mm3 (4.6-6.2); White Blood Count 6.2 K/mm3 (4.4-11.0)
[2021-04-03 10:54] LABS: ALB/GLOB Ratio 0.9 RATIO (0.9-2.4); AST(SGOT) 28 U/L (15-37); Alanine Aminotransfer ALT/SGPT 41 U/L (16-61); Albumin, Serum 3.2 g/dL (3.2-5.0); Alkaline Phosphatase 53 U/L (45-117); Anion Gap 4 (5-15); BUN 12 mg/dL (7-18); BUN/Creat Ratio 16.9 RATIO (10-20); Calcium,Total 8.8 mg/dL (8.5-10.1); Chloride 107 mmol/L (98-107); Cholesterol 109 mg/dL (200); Creatinine, Serum 0.71 mg/dL (0.70-1.30); EST Glomerular Filtration Rate 113 mL/min (>60); Est Glom Filt Rate - Afr Amer 137 mL/min (>60); Globulin 3.6 g/dL (2.2-4.2); Glucose 115 mg/dL (74-106); High Density Lipoprotein 40 mg/dL; Magnesium 1.8 mg/dL (1.6-2.6); Potassium 3.4 mmol/L (3.5-5.1); Protein, Total 6.8 g/dL (6.4-8.2); Sodium Level 141 mmol/L (136-145); Thyroid Stim Hormone (TSH) 1.77 uIU/mL (0.358-3.74); Triglycerides 99 mg/dL; Very Low Density Lipoprotein 20 mg/dL (5-40)
== END ==
PROVIDERS: PCP Family Medicine; Referring Provider Family Medicine; Visit Provider Family Medicine
DX: E83.42 Hypomagnesemia (principal); I48.91 Unspecified atrial fibrillation; E78.5 Hyperlipidemia, unspecified
CPT/HCPCS: 36415; 80053; 80061; 83735; 84443; 85027

== ENCOUNTER 2021-10-03 08:58 | Outpatient (CLI) | payer MEDICARE, OTHER, SELFPAY ==
[2021-10-03 10:15] LABS: BNP,B-Type NATRIURETIC PEPTIDE 79.4 pg/mL (0-100)
[2021-10-03 10:16] LABS: Anion Gap 6 (5-15); BUN 15 mg/dL (7-18); BUN/Creat Ratio 19.2 RATIO (10-20); Calcium,Total 8.7 mg/dL (8.5-10.1); Chloride 106 mmol/L (98-107); Cholesterol 103 mg/dL (200); Creatinine, Serum 0.78 mg/dL (0.70-1.30); EST Glomerular Filtration Rate 102 mL/min (>60); Est Glom Filt Rate - Afr Amer 123 mL/min (>60); Glucose 120 mg/dL (74-106); High Density Lipoprotein 41 mg/dL; Potassium 3.4 mmol/L (3.5-5.1); Sodium Level 143 mmol/L (136-145); Triglycerides 92 mg/dL; Very Low Density Lipoprotein 18 mg/dL (5-40)
== END 2021-10-03 23:59 | disposition home or self-care (01) ==
LOC: LAB 09:00
PROVIDERS: PCP Family Medicine; Referring Provider Family Medicine; Visit Provider Family Medicine
DX: I42.9 Cardiomyopathy, unspecified (principal); E11.9 Type 2 diabetes mellitus without complications
CPT/HCPCS: 36415; 80048; 80061; 83880

== ENCOUNTER → 2022-08-16 | Outpatient (CLI) | payer MEDICARE, OTHER, SELFPAY ==
[2022-08-16 10:38] LABS: Vitamin B12 246 pg/mL (211-911)
[2022-08-16 10:42] LABS: AST(SGOT) 12 U/L (15-37); Alanine Aminotransfer ALT/SGPT 19 U/L (16-61); Albumin, Serum 3.2 g/dL (3.2-5.0); Alkaline Phosphatase 69 U/L (45-117); Anion Gap 6 (5-15); BUN 15 mg/dL (7-18); BUN/Creat Ratio 20.7 RATIO (10-20); Calcium,Total 8.8 mg/dL (8.5-10.1); Chloride 107 mmol/L (98-107); Creatinine, Serum 0.72 mg/dL (0.70-1.30); EST Glomerular Filtration Rate 111 mL/min (>60); Est Glom Filt Rate - Afr Amer 134 mL/min (>60); Globulin 3.4 g/dL (2.2-4.2); Glucose 120 mg/dL (74-106); Magnesium 1.6 mg/dL (1.6-2.6); Potassium 3.7 mmol/L (3.5-5.1); Protein, Total 6.6 g/dL (6.4-8.2); Sodium Level 142 mmol/L (136-145); Thyroid Stim Hormone (TSH) 2.62 uIU/mL (0.358-3.74)
== END | disposition home or self-care (01) ==
LOC: MFPLAB 08:23
PROVIDERS: PCP Family Medicine; Referring Provider Family Medicine; Visit Provider Family Medicine
DX: E83.42 Hypomagnesemia (principal); E11.69 Type 2 diabetes mellitus with other specified complication
CPT/HCPCS: 36415; 80048; 80076; 82607; 83735; 84443

== ENCOUNTER → 2023-07-02 | Outpatient (CLI) | payer MEDICARE, OTHER, SELFPAY ==
[2023-07-02 10:45] LABS: Hematocrit 47.2 % (40-54); Hemoglobin 14.9 g/dL (13.0-16.5); Mean Corp Hgb Conc 31.6 g/dL (32-36); Mean Corpuscular Hgb 28.5 pg (27.0-32.0); Mean Corpuscular Volume 90.2 fL (80-94); Mean Platelet Vol. 8.5 fl (6.2-12.0); Platelet Count 223 K/mm3 (150-450); RBC Distribution Width CV 14.4 % (11.6-14.6); RBC Distribution Width SD 47.9 fl (35.1-43.9); Red Blood Count 5.23 M/mm3 (4.6-6.2); White Blood Count 6.5 K/mm3 (4.4-11.0)
[2023-07-02 11:12] LABS: Vitamin B12 235 pg/mL (211-911); Vitamin D,25 Hydroxy 15.3 ng/mL
[2023-07-02 11:30] LABS: ALB/GLOB Ratio 0.9 RATIO (0.9-2.4); AST(SGOT) 16 U/L (15-37); Alanine Aminotransfer ALT/SGPT 26 U/L (16-61); Albumin, Serum 3.1 g/dL (3.2-5.0); Alkaline Phosphatase 75 U/L (45-117); Anion Gap 4 (5-15); BUN 8 mg/dL (7-18); BUN/Creat Ratio 10.5 RATIO (10-20); Calcium,Total 8.7 mg/dL (8.5-10.1); Chloride 105 mmol/L (98-107); Cholesterol 108 mg/dL (200); Creatinine, Serum 0.76 mg/dL (0.70-1.30); EST Glomerular Filtration Rate 105 mL/min (>60); Est Glom Filt Rate - Afr Amer 127 mL/min (>60); Globulin 3.5 g/dL (2.2-4.2); Glucose 165 mg/dL (74-106); High Density Lipoprotein 39 mg/dL; Potassium 3.5 mmol/L (3.5-5.1); Protein, Total 6.6 g/dL (6.4-8.2); Sodium Level 140 mmol/L (136-145); Thyroid Stim Hormone (TSH) 2.44 uIU/mL (0.358-3.74); Triglycerides 117 mg/dL; Very Low Density Lipoprotein 23 mg/dL (5-40)
[2023-07-02 11:57] LABS: Amylase 50 U/L (25-115); Lipase 23 U/L (13-75)
== END | disposition home or self-care (01) ==
LOC: LAB 09:06
PROVIDERS: PCP Family Medicine; Referring Provider Family Medicine; Visit Provider Family Medicine
DX: Z00.00 Encounter for general adult medical examination without abnormal findings (principal); E11.9 Type 2 diabetes mellitus without complications; E55.9 Vitamin D deficiency, unspecified; E53.8 Deficiency of other specified B group vitamins; T75.3XXA Motion sickness, initial encounter; X58.XXXA Exposure to other specified factors, initial encounter
CPT/HCPCS: 36415; 80053; 80061; 82150; 82306; 82607; 83690; 84443; 85027

== ENCOUNTER 2023-09-08 12:54 | Emergency (ER) | payer MEDICARE, OTHER, SELFPAY ==
[2023-09-08] VITALS (54 sets, daily range): BP systolic 110–161; BP diastolic 60–106; PULSE 61–115; RESP 16–102; TEMP 35.8–36.9; O2SAT 95–100; BMI 31.3
--- NOTE | 2023-09-08 13:17 | CT_ITS ---
STUDY: CT BRAIN WITHOUT CONTRAST REASON FOR EXAM: Male, 82 years old. Altered mental status. RADIATION DOSAGE (If Supplied By Facility): CTDIvol = ( 44.99 ) mGy, DLP = ( 796.11 ) mGycm TECHNIQUE: Transaxial CT imaging of the brain was performed without administration of intravenous contrast material. Individualized dose optimization techniques were used for this CT. COMPARISON: Comparison is made with prior study dated April 02, 2020. FINDINGS: Normal soft tissue structures. Normal calvarium. There is mild cerebral atrophy with widening of the extra-axial spaces and ventricular dilatation. There are areas of decreased attenuation within the white matter tracts of the supratentorial brain, consistent with microvascular disease changes. Is evidence of a hematoma in the right thalamus and right basal ganglia. Mild degree of surrounding edema. Normal brainstem. There is mild cerebellar atrophy. Atherosclerotic calcification of the cavernous portions of the internal carotid arteries bilaterally and vertebral arteries. Normal visualized paranasal sinuses. CT/Brain/Head without Contrast IMPRESSION: Acute hematoma in the right thalamus and right basal ganglion. N.B. : The above Results were Read Back by Valentino Pitts MD to Malachi Rodriguez DO, and understanding confirmed on 09/08/2023 14:24:04 (ET). Electronically Signed: Valentino Pitts MD at 14:27 EST ,
[2023-09-08 13:58] LABS: Absolute Lymphocyte Count 1.37 X10^3/uL (0.83-4.51); Absolute Neutrophil Count 4.2 X10^3/uL (2.0-7.7); Basophil# 0.05 X10^3/uL; Basophil% 0.8 % (0-1); Eosinophils% 1.6 % (0-5); Hematocrit 49.1 % (40-54); Hemoglobin 15.5 g/dL (13.0-16.5); Lymphocyte # 1.37 X10^3/ul (0.83-4.51); Lymphocyte % 22.4 % (19-41); Mean Corp Hgb Conc 31.6 g/dL (32-36); Mean Corpuscular Hgb 28.7 pg (27.0-32.0); Mean Corpuscular Volume 90.8 fL (80-94); Mean Platelet Vol. 8.4 fl (6.2-12.0); Monocyte% 6.5 % (0-10); NRBC Flagged by Analyzer 0 % (0-5); Neutrophil # 4.16 X10^3/uL (2.7-7.7); Neutrophil % 68.2 % (47-70); Platelet Count 234 K/mm3 (150-450); RBC Distribution Width CV 14.3 % (11.6-14.6); RBC Distribution Width SD 47.8 fl (35.1-43.9); Red Blood Count 5.41 M/mm3 (4.6-6.2); White Blood Count 6.1 K/mm3 (4.4-11.0)
[2023-09-08 14:00] LABS: International Normalized Ratio 1.2; Partial Thromboplast Time 30.7 Seconds (24.1-36.2); Prothrombin Time (Protime)PT. 15.5 SECONDS (11.7-14.9)
[2023-09-08 14:07] LABS: AST(SGOT) 15 U/L (15-37); Alanine Aminotransfer ALT/SGPT 21 U/L (16-61); Albumin, Serum 2.8 g/dL (3.2-5.0); Alkaline Phosphatase 76 U/L (45-117); Anion Gap 6 (5-15); BUN 9 mg/dL (7-18); BUN/Creat Ratio 12.8 RATIO (10-20); Bilirubin, Direct 0.18 mg/dL (0.00-0.30); Calcium,Total 9.3 mg/dL (8.5-10.1); Chloride 107 mmol/L (98-107); EST Glomerular Filtration Rate 114 mL/min (>60); Est Glom Filt Rate - Afr Amer 138 mL/min (>60); Estimated Creatinine Clearance 82.87 ml/min; Globulin 3.7 g/dL (2.2-4.2); Glucose 115 mg/dL (74-106); Potassium 3.9 mmol/L (3.5-5.1); Protein, Total 6.5 g/dL (6.4-8.2); Sodium Level 141 mmol/L (136-145); Troponin-I HS 29 pg/mL (3.0-78.0)
--- NOTE | 2023-09-08 14:29 | EDS_ITS ---
HPI History of Present Illness Chief Complaint: Alt LOC Informant: patient, spouse/S.O. and family Onset/Context/Timing Onset: Today Narrative Narrative: 82-year-old male history of atrial fibrillation prior hemorrhagic stroke not on anticoagulants presenting to the emergency room via EMS. It was reported that his could not get him to wake up this morning. stated that he has not been sleeping well and thought perhaps that had something to do with it. I asked the patient how he is doing today he says that he feels okay . He is denying any pain. He seems to be keeping his head turned towards the right. He does not know why. He denies any pain. No recent falls or trauma. Was reported by EMS that his pupils seem small. There is been no reported change in medications or dosing of medications. No recent trauma [facility] Medical History (Updated 09/08/23 @ 14:[address] Malachi Rodriguez, ) A-fib Aphasia BPH (benign prostatic hypertrophy) Cardiomyopathy Choreiform movement Debility Hyperlipidemia Hypertension Thalamic hemorrhage with stroke Transient ischemic attack Home Medications aspirin 81 mg tablet,delayed release 81 mg PO DAILY heart 03/03/19 [History Last Taken 03/30/20 08:00] atorvastatin 40 mg tablet 40 mg PO QHS cholesterol 03/30/20 [History Last Taken 03/29/20] finasteride 5 mg tablet 5 mg PO DAILY prostate 03/30/20 [History Last Taken 03/30/20 08:00] furosemide 20 mg tablet 20 mg PO DAILY water pill 03/30/20 [History Last Taken 03/30/20 08:00] lisinopril 20 mg tablet 20 mg PO DAILY blood pressure 03/30/20 [History Last Taken 03/30/20 08:00] metoprolol tartrate 100 mg tablet 100 mg PO BID blood pressure 03/30/20 [History Last Taken 03/30/20 08:00] tamsulosin 0.4 mg capsule 0.4 mg PO DAILY@1730 prostate 03/30/20 [History Last Taken 03/30/20 17:00] diltiazem HCl 120 mg capsule,extended release 24 hr (Cardizem CD) 120 mg PO DAILY 09/08/23 [History Last Taken Unknown] Allergy/AdvReac Type Severity Reaction Status Date / Time donepezil [From Aricept] AdvReac Other Verified 06/01/19 03:25 levetiracetam [From [facility]] AdvReac Other Verified 06/01/19 03:25 Family History Father Myocardial infarction Social History (Updated 09/29/17 @ 08:[address] Edward Siddiqui, DO) Smoking Status: Never smoker ROS ROS ED ROS Narrative Patient states he just feels tired Constitutional Constitutional ED: Denies chills, fever(s) or weight loss Eyes Eyes: Denies blurry vision, change in vision or diplopia ENT ENT ED: Denies ear pain, rhinorrhea or sore throat Cardiovascular Cardiovascular: Denies chest pain, orthopnea, palpitations or racing heartbeat Respiratory/Chest Respiratory/Chest: Denies cough, dyspnea or orthopnea Gastrointestinal Gastrointestinal: Denies abdominal pain, diarrhea, nausea or vomiting Genitourinary Genitourinary ED: Denies dysuria, hematuria or urinary frequency Musculoskeletal Musculoskeletal: Denies arthralgias, back pain, myalgias or neck pain Integumentary Denies abscess or rash Neurologic Neurologic: Denies headache(s), paresthesias or weakness Psychiatric Psychiatric: Denies anxiety, depression, suicidal ideation or suicidal thoughts Endocrine Endocrinology: Denies polydipsia, polyphagia or polyuria Allergic/Immunologic Allergic/Immunologic ED: Denies mouth swelling, tongue swelling or urticaria EXAM Physical Exam Const Vital Signs: 09/08/23 12:57 09/08/23 14:11 09/08/23 14:08 Temperature 96.5 F L Temperature Source Temporal Pulse Rate 65 61 Respiratory Rate 16 16 Blood Pressure 161/95 H 150/100 H Blood Pressure Mean 117 116 Pulse Ox 96 98 Oxygen Delivery Method Room Air Room Air Room Air 09/08/23 14:23 Temperature Temperature Source Pulse Rate 68 Respiratory Rate 24 H Blood Pressure 140/104 H Blood Pressure Mean 116 Pulse Ox 100 Oxygen Delivery Method Room Air Positive well nourished, well developed and obese General Appearance ED: well developed Nutritional Appearance: obese HEENT Reports normocephalic, head/scalp atraumatic and moist mucous membranes Eyes PERRL and EOMs intact bilaterally Eyes Narrative: Patient's pupils are about 2 mm bilaterally there is some eye deviation to the right unable to get him to start to look left before he stops and keeps them at the midline. Neck no lymphadenopathy, supple and no JVD Resp normal respiratory effort and clear to auscultation bilaterally Cardio regular rate, regular rhythm and no murmurs GI normal to inspection, nondistended, normoactive bowel sounds and non-tender Palpation: soft Back/Spine no CVA tenderness and normal ROM Extremity normal to inspection General Extremety ED: Negative for edema General Extremity: Negative for edema Neuro oriented x3 Neuro Narrative: Patient will not smile for me. He will closes eyes tired and wrinkle his fo rehead. There is no tongue deviation. He keeps his head turned to the right but I am able to get him to turn to the left. His left arm and leg are weak but I am able to get him to hold them up off the bed for 10 seconds. The right side grossly appears stronger than the left. He states he does not have a change in sensation from left to right with direct testing. Sensorium / Orientation: alert Motor Exam: strength 5/5 throughout Psych mental status grossly normal Mood & Affect: Negative for depressed or tearful Skin no rashes or lesions noted and no wounds MDM MDM MDM Narrative Medical decision making narrative: Patient basic blood work was obtained CT of the brain and chest x-ray. CT the brain is demonstrating a right basal ganglia bleed. This is about the same area as it was in August 2016. My independent interpretation of the chest x-ray is no acute process. EKG is atrial fibrillation with a rate of 71 bpm. Basic blood work showed a glucose of 115. White count 6.1 hemoglobin 15.5. Coags negative. Troponin 29. This appears to be an atraumatic basal ganglia bleed. I reassessed the patient. I am able to awaken him and he can still look left turn his head left and answer appropriately. Family now arrived states that they cannot seem to appreciate the left side of his face moving as well. For me I just cannot get him to smile. He can close his eyes appropriately wrinkle his eyebrows. No tongue deviation still. Arm and leg weakness remains as previously described. I spoke with family and the patient regarding his diagnosis and need for transfer for neurosurgical evaluation. Family is requesting [facility]. I spoke with Dr. Coelho from neurology and with ICU. Plan is transfer. History & Record Review Discussion w/independent historian: Patient and Family Additional record(s) reviewed:: Prior inpatient record, Prior outpatient record, Prior ED visit and Prior labs Lab Data Attestation: I reviewed the patient's lab results. Labs: Laboratory Results - last 24 hr 09/08/23 09/08/23 13:35 14:30 WBC 6.1 RBC 5.41 Hgb 15.5 Hct 49.1 MCV 90.8 MCH 28.7 MCHC 31.6 L RDW Std Deviation 47.8 H RDW Coeff of Tal 14.3 Plt Count 234 MPV 8.4 Immature Gran % (Auto) 0.500 Neut % (Auto) 68.2 Lymph % (Auto) 22.4 [place] % (Auto) 6.5 Eos % (Auto) 1.6 Baso % (Auto) 0.8 Absolute Neuts (auto) 4.2 Absolute Lymphs (auto) 1.37 Nucleated RBC % 0 PT 15.5 H INR 1.2 APTT 30.7 Sodium 141 Potassium 3.9 Chloride 107 Carbon Dioxide 28.0 Anion Gap 6 BUN 9 Creatinine 0.70 Estim Creat Clear Calc 82.87 Est GFR (MDRD) Af Amer 138 Est GFR (MDRD) Non-Af 114 BUN/Creatinine Ratio 12.8 Glucose 115 H Calcium 9.3 Total Bilirubin 0.60 Direct Bilirubin 0.18 AST 15 ALT 21 Alkaline Phosphatase 76 Troponin I High Sens 29 Total Protein 6.5 Albumin 2.8 L Globulin 3.7 Urine Color Yellow Urine Clarity Clear Urine pH 6.0 Ur Specific [place] 1.015 Urine Protein Negative Urine Glucose (UA) Normal Urine Ketones Negative Urine Occult Blood 10 H Urine Nitrite Negative Urine Bilirubin Negative Urine Urobilinogen Normal Ur Leukocyte Esterase Negative Urine RBC 0 SEEN Urine WBC 0 SEEN Ur Squamous Epith Cells 0-5 SEEN Urine Bacteria 0 SEEN Urine Mucus 0 SEEN Radiography Diagnostic Testing: Clinical Impression(s) from Imaging Studies Brain CT 09/08/23 13:17 IMPRESSION: Acute hematoma in the right thalamus and right basal ganglion. N.B. : The above Results were Read Back by Valentino Pitts MD to Malachi Rodriguez DO, and understanding confirmed on 09/08/2023 14:24:04 (ET). Electronically Signed: Valentino Pitts MD at 14:27 EST , ADDENDUM: 09/08/23 1434 IMPRESSION: Acute hematoma in the right thalamus and right basal ganglion. N.B. : The above Results were Read Back by Valentino Pitts MD to Malachi Rodriguez DO, and understanding confirmed on 09/08/2023 14:24:04 (ET). Electronically Signed: Valentino Pitts MD at 14:27 EST , EKG Initial EKG: Attestation: I personally reviewed and interpreted this EKG as follows: Comments: Atrial fibrillation with ventricular rate of 71 bpm Management Discussion w/another healthcare provider: Pathology Laboratory Director ([facility] and Radiologist Discharge Plan Triage Chief Complaint: Alt LOC ED Provider: Malachi Rodriguez Dx/Rx/DC Orders Clinical Impression: A-fib, Hemorrhagic stroke Prescriptions: No Action aspirin 81 MG tablet,delayed release (DR/EC) 81 mg PO DAILY atorvastatin 40 MG tablet 40 mg PO QHS metoprolol tartrate 100 MG tablet 100 mg PO BID lisinopril 20 MG tablet 20 mg PO DAILY tamsulosin 0.4 MG capsule 0.4 mg PO DAILY@1730 furosemide 20 MG tablet 20 mg PO DAILY finasteride 5 MG tablet 5 mg PO DAILY diltiazem HCl [Cardizem CD] 120 mg capsule,extended release 24hr 120 mg PO DAILY Primary Care Provider: Parmjit Grajeda Referrals: Parmjit Grajeda MD [Primary Care Provider] - Disposition Disposition: Acute Care Hospital NIHSS NIHSS 1a. Level of Consciousness: Alert; keenly responsive 1b. LOC Questions: Answers BOTH questions correctly. 1c. LOC Commands: Performs both tasks correctly. 2. Best Gaze: Partial gaze palsy; 3. Visual: No visual loss 4. Facial Palsy: Minor paralysis (flattened nasolabial fold, asymmetry on smiling) (Patient will not smile. Eye closes and wrinkles forehead. No tongue deviation) 5a. Left Arm: No drift; arm holds 90 (or 45) degrees for full 10 seconds 5b. Right Arm: No drift; arm holds 90 (or 45) degrees for full 10 seconds 6a. Left Leg: Drift; leg falls by the end of 5-seconds, but does not hit bed 6b. Right Leg: No drift; leg holds 30-degree position for full 5 seconds 7. Limb Ataxia: Absent 8. Sensory: Normal; no sensory loss 9. Best Language: No aphasia; normal 10. Dysarthria: Normal 11. Extinction and Inattention: Visual, tactile, auditory, spatial, or personal inattention (Patient appears to have inattention with the left side of his body unless directed utilize it) Total: 4
[2023-09-08] MEDS: hydrALAZINE 20 MG/ML Vial IV (14:31)
[2023-09-08 14:36] LABS: Bacteria 0 SEEN /hpf (None Seen); Mucous, Urine 0 SEEN /hpf (<or=2+); Red Blood Cells-Urine 0 SEEN /hpf (0-5); White Blood Cells 0 SEEN /hpf (0-5)
--- NOTE | 2023-09-08 14:40 | RAD_ITS ---
STUDY: X-RAY CHEST REASON FOR EXAM: Male, 82 years old. Altered mental status TECHNIQUE: Single AP portable view of the chest. COMPARISON: Comparison is made with prior study dated March 31, 2020. FINDINGS: EKG electrodes are seen. The lungs are clear and expanded. There is no demonstrated pleural abnormality. There is moderate cardiac enlargement. Normal mediastinum and vikas. Normal visualized pulmonary arteries. There is atherosclerotic calcification of the aortic arch with tortuosity. There are diffuse degenerative changes of the visualized thoracic spine. Normal visualized ribs, clavicles, and shoulders. There is no demonstrated abnormality of the visualized soft tissue structures of the upper abdomen. RAD/Chest 1 View (Portable) IMPRESSION: Cardiomegaly. Electronically Signed: Valentino Pitts MD at 15:07 EST ,
[2023-09-08 14:41] LABS: Color, Urine Yellow (Yellow); Glucose, Dipstick Normal (Normal); Ketone-Dipstick Negative (Negative); Leukocyte Esterase-Dipstick Negative /ul (Negative); Nitrite-Dipstick Negative (Negative); Occult Blood-Urine 10 /ul (Negative); Protein-Dipstick Negative (Negative); Specific Gravity, Urine 1.015 (1.002-1.030); Urine Bilirubin Dipstick Negative (Negative); Urine Clarity Clear (Clear); Urine Urobilinogen Normal (Normal)
[2023-09-08 14:47] LABS: Squamous Epithelial Cells - UA 0-5 SEEN /hpf (0-5)
--- NOTE | 2023-09-08 19:34 | ED.RN ---
report called to [place] [id number] registered nurse Thu at 1927
--- NOTE | 2023-09-08 19:34 | ED.RN ---
CALLED PHYSICIANS AT 1850 TO REQUEST OUTSOURCE, THEY LATER CALLED BACK AT 185 WITH AN UPDATED ETA OF 60-90 MINUTES WHICH WOULD PUT RIDE AT 2030.
== END 2023-09-08 21:19 | disposition short-term general hospital (02) ==
PROVIDERS: Emergency Medicine; Emergency Provider Emergency Medicine; PCP Family Medicine; Visit Provider Emergency Medicine
DX: I48.91 Unspecified atrial fibrillation (principal); I42.9 Cardiomyopathy, unspecified; I63.9 Cerebral infarction, unspecified; N40.0 Benign prostatic hyperplasia without lower urinary tract symptoms; E78.5 Hyperlipidemia, unspecified; Z79.82 Long term (current) use of aspirin; Z79.899 Other long term (current) drug therapy; Z86.73 Personal history of transient ischemic attack (TIA), and cerebral infarction without residual deficits
CPT/HCPCS: 36415; 51702; 70450; 71045; 80048; 80076; 81001; 84484; 85025; 85610; 85730; 93005; 99285; A4216